=== PATIENT | male | born 1955 | race African-American/Black ===

== ENCOUNTER 2025-01-18 13:48 | Inpatient (IN) ==
[~2025-01-18 13:48] MED LIST: SODIUM BICARB 8.4% INJ 50 MEQ/50 ML SYR IV ONE; SODIUM CHLORIDE 0.9% 10ML FLUSH IV ONE
--- NOTE | 2025-01-18 14:17 | XRay Report ---
XR chest 1V portable CLINICAL HISTORY: post arrest COMPARISON STUDY: None FINDINGS: Endotracheal tube tip is between the thoracic inlet and the astrid. There is cardiomegaly w ithout pulmonary vascular congestion. No effusion, consolidation, or pneumothorax seen. IMPRESSION: Endotracheal tube as described with well-aerated lungs. ACT 112: Negative or not required by law. Electronically signed by: Pedro Alston M.D. 01/18/2025 2:15 PM
[2025-01-18] MEDS: OPTIRAY 320 125ml IV ONE (14:18)
[2025-01-18 14:22] LABS: Base Excess VBG -7.7 mEq/L; HCO3 VBG 24 mmol/L; Oxygen Saturation VBG 70.9 %; PCO2 VBG 86 mmHg (38-50); PO2 VBG 50 mmHg; pH VBG 7.06 (7.36-7.41)
[2025-01-18] MEDS ORDERED: STAT IV Infusion **Titration per Protocol STA ×4 (14:24→16:49)
--- NOTE | 2025-01-18 14:29 | Emergency Department Note ---
Impression & Plan Cardiac arrest, Acute hyperkalemia, Acute hypotension ED Provider Note HISTORY OF PRESENT ILLNESS: Patient is a 69-year-old male presenting after postcardiac arrest. EMS provides history, as patient is intubated. He reportedly was at a truck stop on [facility] when he had a witnessed fall to the ground. He had agonal breathing and CPR was started by bystanders. EMS reports that CPR was ongoing for about 6 minutes and when they arrived he had a pulse. He did have a gag reflex and they gave him 100 mcg of IV fentanyl and 5 mg IV Versed for sedation for intubation. They gave him a total of "140 mcg epinephrine," 1 amp of bicarb and 1 g of IV calcium prehospital. They report the patient has a "extensive cardiac history." On arrival to the emergency department, the patient has a palpable bradycardic pulse. He is intubated. He was initiated on a Levophed drip prehospital for his hypotension with EMS. Patient's presents later and supplies further history. Reports that the patient has been feeling very short of breath all week. Reports that the patient uses oxygen as needed and wears anywhere from 4 to 6 L at a time. He reportedly has been wearing his supplemental oxygen more frequently over the last week. They are currently on a road trip for vacation. Patient is on Entresto. No anticoagulation. reports the patient seemed more short of breath today. She states that he went to go to the bathroom at a rest stop and then had collapsed. ROS: as above PHYSICAL EXAM: Constitutional: Patient appears in no acute distress. HENT: Head: Normocephalic. Eyes: Pinpoint pupils. Mouth/Throat: Mucous membranes moist. Neck: Trachea midline. Neck supple. Cardiovascular: RRR, No murmurs, rubs or gallops. Intact distal pulses. Pulmonary/Chest: Patient intubated. Breath sounds only audible on right lung field auscultation. Abdominal: Abdomen soft, no tenderness, rebound or guarding. Musculoskeletal: No edema, tenderness or deformity noted. Skin: Warm and dry. No rash, erythema, pallor or cyanosis Neurological: Patient intubated. MDM: - Vitals signs showed hypotension. - History is obtained via EMS, given patient's postcardiac arrest status and intubation. - On arrival to the emergency department, patient is hypotensive. Bedside vcbiq-oy-ndle echocardiogram performed by ianelf showed trace amount of pericardial fluid. Patient does have what looks like good squeeze on bedside echo. Also did a rrygv-ik-kdzy FAST exam performed by myself, given the patient's hypotension. No obvious blood in his abdomen. He was started on an epinephrine drip and this had to be titrated up to 0.5 mcg/min. Blood pressure did improve and he was slowly titrated down to 0.2 mcg/min. Patient did start to arouse and reach for his ET tube, and he was given 50 mcg of IV fentanyl and started on a fentanyl drip. Jxnoy-[id number] BMP shows a potassium greater than 9. Patient was given 2 amps of bicarb and started on bicarb drip. VBG does show profound acidosis with a pH of 7.06. - EKG image reviewed by myself that was obtained at 1354 showed normal sinus rhythm. Rate 58 bpm. However, noted to have significantly wide QRS and a right bundle branch block. - Patient was given 2 amps of bicarb on his arrival to the emergency department. A bicarb drip was ordered. However, took a while for the bicarb drip to come up from pharmacy, so an additional 2 A of bicarb were ordered after evugi-gw-qzof BMP showed a potassium greater than 9. Patient had breath sounds only audible on the right side so his ET tube was retracted 2 cm. Chest x-ray shows appropriate ET tube placement per my interpretation. - Patient did start to have purposeful movements and was given 50 mcg of fentanyl and started on IV fentanyl drip for sedation. He was taken over for CT scan. CT head without contrast negative for any acute intracranial pathology. CTA of the chest was negative for any evidence of dissection. He has noted to have some rib fractures, likely secondary to his CPR. - Discussed case with ICU attending, Dr. Smith, at 14:41. He expressed concern about the patient's potassium and potential need for emergent dialysis. However, after a total of 4 amps of bicarb and initiation of a bicarb drip, a repeat [id number] BMP shows a potassium down to 5.3. - Repeat EKG image obtained at 1509 shows a persistent wide QRS. Rate 55 bpm. Noted to have a right bundle branch block. - Patient was difficult to sedate and he started to attempt to reach for his ET tube and was moving all extremities. He tried to sit up out of bed. He was given multiple boluses of IV fentanyl, given an IV Versed bolus and started on IV Versed drip for further sedation. Patient CMP showed a calcium of 7.9 and 1 g of IV calcium was pushed in the emergency department for further electrolyte replacement. - Discussed case with piano case and bench assembler about patient's case and need for admission. - [facility], Dr. Monsivais, consult for admission. - Patient mated to [facility] service for further evaluation management. I have personally spent 97 minutes of critical care time in the direct management of this patient. This includes bedside care, interpretation of diagnostic studies, and testing, discussion with consultants, patient, and family members, and other required patient management activities. This 97 minutes is in excess of all separately billable procedures. ASSESSMENT AND PLAN: Diagnosis: Cardiac arrest; hyperkalemia; hypotension Plan: admit Past Med/Surg History Problem List (Updated 01/18/25 @ 15:56 by Britt Liang MD) Acute hypotension (Acute) Acute hyperkalemia (Acute) Cardiac arrest (Acute) Social History Smoking Status: Unknown if ever smoked Preferred Language: Polish Feels Safe at Home: Yes Home Meds Home Medications Medication Instructions Recorded Confirmed atorvastatin 40 mg tablet 40 mg PO DAILY 01/18/25 01/18/25 carvedilol 25 mg tablet 25 mg PO BID 01/18/25 01/18/25 dapagliflozin propanediol 10 mg 10 mg PO DAILY 01/18/25 01/18/25 tablet (Farxiga) fluticasone fur. 200 mcg-umeclid 1 inh inhalation DIRECTED 01/18/25 01/18/25 62.5 mcg-vilant 25 mcg inhalat.powder (Trelegy Ellipta) metformin 500 mg tablet 500 mg PO UD 01/18/25 01/18/25 montelukast 10 mg tablet 10 mg PO DAILY 01/18/25 01/18/25 sacubitril 49 mg-valsartan 51 mg 1 tab PO BID 01/18/25 01/18/25 tablet (Entresto) tadalafil 20 mg tablet 20 mg PO DIRECTED PRN Other 01/18/25 01/18/25 Results & Data (ED) Vital Signs Vital Signs - 24 hr 01/18/25 13:26 01/18/25 13:35 01/18/25 13:35 Pulse Rate 67 Respiratory Rate 18 Respiratory Effort / Characteristics Non-Labored Blood Pressure 145/83 H Blood Pressure [Left Arm] Blood Pressure Mean 103 Blood Pressure Mean [Left Arm] Pulse Oximetry 100 Oxygen Delivery Method Mechanical Vent Room Air Fraction of Inspired Oxygen Sepsis Recent Fever Within 48 Hours No Sepsis New/Unexplained Change in Mental Status N/A Sepsis Action Taken by Nursing No Action Required 01/18/25 13:35 01/18/25 13:56 01/18/25 14:00 Pulse Rate 63 57 L Respiratory Rate 16 Respiratory Effort / Characteristics Blood Pressure Blood Pressure [Left Arm] 202/120 H Blood Pressure Mean Blood Pressure Mean [Left Arm] 147 Pulse Oximetry 100 Oxygen Delivery Method Fraction of Inspired Oxygen 100 Sepsis Recent Fever Within 48 Hours Sepsis New/Unexplained Change in Mental Status Sepsis Action Taken by Nursing 01/18/25 14:17 Pulse Rate Respiratory Rate Respiratory Effort / Characteristics Blood Pressure Blood Pressure [Left Arm] Blood Pressure Mean Blood Pressure Mean [Left Arm] Pulse Oximetry 100 Oxygen Delivery Method Mechanical Vent Fraction of Inspired Oxygen Sepsis Recent Fever Within 48 Hours Sepsis New/Unexplained Change in Mental Status Sepsis Action Taken by Nursing Laboratory Data 01/18/25 14:08 01/18/25 14:08 Lab Results 01/18/25 01/18/25 Range/Units 14:08 15:36 WBC 4.56 L (4.8-10.8) K/ul RBC 4.83 (4.70-6.10) M/uL Hgb 14.9 (14.0-18.0) g/dl POC Hgb 15.6 (14.0-18.0) g/dl Hct 51.5 (42.0-52.0) % POC Hct 46 (42-52) % MCV 106.6 H (80.0-100.0) fL MCH 30.8 (25.0-34.0) pg MCHC 28.9 L (32.0-36.0) g/dL RDW Std Deviation 54.2 H (36.4-46.3) fL RDW Coeff of Denilson 13.7 (11.5-14.5) % Plt Count 163 (130-400) K/uL MPV 11.9 (9.4-12.4) fL Immature Gran % (Auto) 1.1 % Neut % (Auto) 51.8 % Lymph % (Auto) 36.8 % Free[place] % (Auto) 9.2 % Eos % (Auto) 0.7 % Baso % (Auto) 0.4 % Neut # (Auto) 2.36 (1.40-6.50) K/uL Lymph # (Auto) 1.68 (1.20-3.40) K/uL Freeborn # (Auto) 0.42 (0.11-0.59) K/uL Eos # (Auto) 0.03 (0.00-0.50) K/uL Baso # (Auto) 0.02 (0.00-0.20) K/uL Immature Gran # (Auto) 0.05 (0.01-0.20) K/uL Polychromasia 1+ Echinocytes 2+ PT 11.9 (9.0-12.0) Seconds INR 1.1 (0.9-1.1) VBG pH 7.06 L (7.36-7.41) VBG pCO2 86 H (38-50) mmHg VBG pO2 50 mmHg VBG HCO3 24 mmol/L VBG O2 Saturation 70.9 % VBG Base Excess -7.7 mEq/L POC Sodium 146 H (135-144) mmol/L Sodium 143 (136-145) mmol/L POC Potassium 5.3 H (3.3-5.0) mmol/L Potassium TNP POC Chloride 105 (101-112) mmol/L Chloride 115 H (98-107) mmol/L Carbon Dioxide 25 (21-32) mmol/L POC Total CO2 32 H (24-31) mmol/L Anion Gap 3 (3-11) POC Anion Gap 15.0 L (16-25) mmol/L POC BUN 33 H (7-18) mg/dl BUN 31 H (6-23) mg/dl Creatinine 1.40 (0.6-1.4) mg/dl POC Creatinine 1.4 H (0.6-1.3) mg/dl Est Cr Clr Drug Dosing 65.9 ml/min eGFR 54.07 BUN/Creatinine Ratio 22.1 H (10-20) Glucose 202 H (70-99(Fasting)) mg/dl POC Glucose (other) 211 H (70-99) mg/dl Calcium 7.2 L (8.6-10.3) mg/dl POC Ioniz Calcium Otoniel 1.16 (1.12-1.32) mmol/l Magnesium 1.7 (1.7-2.4) mg/dl Total Bilirubin 0.5 (0.2-1.0) mg/dl AST TNP ALT 38 (7-52) U/L Alkaline Phosphatase 52 (34-104) U/L Troponin I High Sens 22.7 H (0-20) pg/ml Total Protein 4.8 L (6.0-8.3) gm/dl Albumin 2.6 L (3.4-5.0) gm/dl Globulin 2.2 L (2.5-4.0) gm/dl Albumin/Globulin Ratio 1.2 (0.9-2) Lipase 50 (11-82) U/L Administered Medications Fentanyl Citrate (Fentanyl Bolus From Bag) 50 mcg IV Q60M PRN PRN Reason: Pain or Agitation Stop: 02/01/25 14:23 Last Admin: 01/18/25 14:39 Dose: 50 mcg Documented By: MATTHEW Co-signed By: MIGUELINA Sodium Bicarbonate 150 meq/ (Sterile Water) 1,150 mls @ 250 mls/hr IV .Q4H36M ANA Stop: 02/17/25 14:14 Last Admin: 01/18/25 15:11 Dose: 250 mls/hr Documented By: MATTHEW Fentanyl Citrate (Fentanyl Citrate) 2,500 mcg in 250 mls @ 2.5 mls/hr IV .Q96H [facility]; Protocol Stop: 02/01/25 14:29 Last Admin: 01/18/25 14:35 Dose: 25 mcg/hr, 2.5 mls/hr Documented By: MATTHEW Co-signed By: MIGUELINA Epinephrine HCl () 4 mg in 254 mls @ 46.025 mls/hr IV .Q5H32M ANA; Protocol Stop: 02/17/25 14:44 Last Admin: 01/18/25 15:13 Dose: 0.2 mcg/kg/min, 92.1 mls/hr Documented By: MATTHEW Co-signed By: YARIEL Midazolam HCl (Versed) 125 mg in 250 mls @ 2 mls/hr IV .Q96H ANA; Protocol Stop: 02/17/25 14:59 Last Admin: 01/18/25 15:25 Dose: 1 mg/hr, 2 mls/hr Documented By: MATTHEW Co-signed By: YARIEL Discontinued Medications Calcium Gluconate (Calcium Gluconate 1000 Mg/60 Ml Nss) Confirm Administered Dose 1,000 mg IV .STK-MED ONE Stop: 01/18/25 15:05 Last Admin: 01/18/25 15:25 Dose: 1,000 mg Documented By: MATTHEW Fentanyl Citrate (Fentanyl Citrate Pf 100 Mcg/2 Ml Vial) Confirm Administered Dose 100 mcg .ROUTE .STK-MED ONE Stop: 01/18/25 14:24 Last Increment: 01/18/25 14:34 Dose: 50 mcg Documented By: MATTHEW Ioversol (Optiray 320 125ml) 119 ml IV ONCE ONE Stop: 01/18/25 14:18 Last Admin: 01/18/25 14:18 Dose: 119 ml Documented By: LOCO Midazolam HCl (Midazolam Hcl 1 Mg/Ml 2ml Vial) Confirm Administered Dose 2 mg .ROUTE .STK-MED ONE Stop: 01/18/25 14:52 Last Admin: 01/18/25 15:24 Dose: 2 mg Documented By: MATTHEW Midazolam HCl (Midazolam Hcl 1 Mg/Ml 2ml Vial) Confirm Administered Dose 2 mg .ROUTE .STK-MED ONE Stop: 01/18/25 14:55 Last Admin: 01/18/25 15:24 Dose: 2 mg Documented By: MATTHEW Imaging Data Radiologist's Impression: Chest CTA 01/18/25 14:03 CT ANGIOGRAM OF THE CHEST COMBO CLINICAL HISTORY: Hypotension. Post cardiac arrest. COMPARISON STUDY: Chest radiograph performed earlier today. TECHNIQUE: Before and following the IV administration of 119 cc of Optiray 320, CT angiogram of the chest was performed from the thoracic inlet to the upper abdomen utilizing the dissection protocol. Images are reviewed in the axial, sagittal, and coronal planes. 3-D MIPS images are created and assessed. IV contrast was administered without complication. A dose lowering technique was utilized adhering to the principles of ALARA. CT DOSE: 2782.13 mGy.cm FINDINGS: The endotracheal tube is well-positioned. The heart is moderately enlarged with preferential dilatation of the right heart chambers. Note is made of multiple locules of gas within the nondependent aspect of the right atrium and right ventricle. Additional sites of venous gas are present. Lungs are likely related to IV insertion. There is no thoracic aortic dissection or intramural hematoma. No pulmonary emboli are identified. A small pericardial effusion. Small right and trace left pleural effusions are present. Bilateral lower lobe subpleural opacities, right greater than left. There is no pneumothorax. Severe emphysema is present. A 1.2 cm left upper lobe nodule on image 99 of 241 is noted. There are acute nondisplaced fractures of the anterior right second, fourth and fifth ribs. No thoracic spine fractures are present. Body wall edema is present. A small amount of upper abdominal ascites is noted. IMPRESSION: 1. No thoracic aortic dissection. No pulmonary emboli identified. 2. Moderate cardiomegaly. Small pericardial effusion. 3. Well-positioned endotracheal tube. 4. Acute nondisplaced fractures of the anterior right second, fourth and fifth ribs. No pneumothorax. 5. Small right and trace left pleural effusions. Associated subpleural opacities could represent atelectasis or aspiration pneumonitis. 6. Severe emphysema. 7. 1.2 cm left upper lobe nodule. This is indeterminate and is worrisome for neoplasm. A mucoid impacted bronchus could appear similar. A chest CT in 2 months is recommended. 8. Locules of gas within the right heart chambers and venous gas likely related to IV insertion. 9. Anasarca. Small amount of upper abdominal ascites. ACT 112: Negative or not required by law. Electronically signed by: Dilshad Rawls M.D. 01/18/2025 2:51 PM Chest X-Ray 01/18/25 14:03 XR chest 1V portable CLINICAL HISTORY: post arrest COMPARISON STUDY: None FINDINGS: Endotracheal tube tip is between the thoracic inlet and the astrid. There is cardiomegaly without pulmonary vascular congestion. No effusion, consolidation, or pneumothorax seen. IMPRESSION: Endotracheal tube as described with well-aerated lungs. ACT 112: Negative or not required by law. Electronically signed by: Pedro Alston M.D. 01/18/2025 2:[address] 01/18/25 14:15 CT head/brain wo con CLINICAL HISTORY: cardiac arrest. TECHNIQUE: Multiple axial CT images of the head were obtained without contrast. A dose lowering technique was utilized adhering to the principles of ALARA. COMPARISON: None FINDINGS: No intracranial hemorrhage seen. No mass effect, midline shift, or hydrocephalus. There is mild to moderate patchy periventricular hypodensity which likely represents chronic small vessel ischemic changes. There is mucosal thickening in the maxillary sinuses. No mastoid effusion. No skull fracture seen. IMPRESSION: No acute findings. ACT 112: Negative or not required by law. The above report was generated using voice recognition software. It may contain grammatical, syntax or spelling errors. Electronically signed by: Pedro Alston M.D. 01/18/2025 2:32 PM Chest X-Ray 01/18/25 15:29 XR chest 1V portable CLINICAL HISTORY: line placement COMPARISON STUDY: Earlier today FINDINGS: Endotracheal tube tip is between the thoracic inlet and the astrid, 5 cm above the astrid. There is an interval right central catheter with the tip in the SVC. Stable mild cardiomegaly without pulmonary vascular congestion. No effusion, consolidation, or pneumothorax. IMPRESSION: Well-positioned endotracheal tube with well-aerated lungs. ACT 112: Negative or not required by law. Electronically signed by: Pedro Alston M.D. 01/18/2025 3:47 PM Discharge Plan Visit Data Chief Complaint: Cardiac Arrest/CPR Stated Complaint: POST ARREST ED Provider: Britt Liang Discharge Problem: Cardiac arrest, Acute hyperkalemia, Acute hypotension Condition: Critical Forms Stand Alone Forms: My [facility] [employer] Prescriptions Prescriptions: No Action atorvastatin 40 mg tablet 40 mg PO DAILY metformin 500 mg tablet 500 mg PO UD Rx Instructions: 1000mg po qam and 500mg po pm carvedilol 25 mg tablet 25 mg PO BID montelukast 10 mg tablet 10 mg PO DAILY tadalafil 20 mg tablet 20 mg PO DIRECTED PRN (Reason: Other) dapagliflozin propanediol [Farxiga] 10 mg tablet 10 mg PO DAILY Entresto 49-51 mg tablet 1 tab PO BID Trelegy Ellipta 200-62.5-25 mcg blister with device 1 inh INHALATION DIRECTED Referrals Referrals: PCP,NO [Physician] -
--- NOTE | 2025-01-18 14:34 | CT Scan Report ---
CT head/brain wo con CLINICAL HISTORY: cardiac arrest. TECHNIQUE: Multiple axial CT images of the head were obtained without contrast. A dose lowering tech nique was utilized adhering to the principles of ALARA. COMPARISON: None FINDINGS: No intracranial hemorrhage seen. No mass effect, midline shift, or hydrocephalus. There is mild to moderate patchy periventricular hypodensity which likely represents chronic small vessel isch emic changes. There is mucosal thickening in the maxillary sinuses. No mastoid effusion. No skull fra cture seen. IMPRESSION: No acute findings. ACT 112: Negative or not required by law. The above report was generated using voice recognition software. It may contain grammatical, syntax o r spelling errors. Electronically signed by: Pedro Alston M.D. 01/18/2025 2:32 PM
[2025-01-18] MEDS: fentaNYL citrate 2,500 MCG/250 ML BAG IV SCH (14:35)
[2025-01-18 14:50] LABS: Alanine Aminotransferase 38 U/L (7-52); Alkaline Phosphatase 52 U/L (34-104); Anion Gap 3 (3-11); Blood Urea Nitrogen 31 mg/dl (6-23); Calcium 7.2 mg/dl (8.6-10.3); Carbon Dioxide 25 mmol/L (21-32); Chloride 115 mmol/L (98-107); Creatinine Clr Calc Pharmacy 65.9 ml/min; Glucose 202 mg/dl (70-99(Fasting)); Lipase 50 U/L (11-82); Magnesium 1.7 mg/dl (1.7-2.4); Sodium 143 mmol/L (136-145)
--- NOTE | 2025-01-18 14:53 | CT Scan Report ---
CT ANGIOGRAM OF THE CHEST COMBO CLINICAL HISTORY: Hypotension. Post cardiac arrest. COMPARISON STUDY: Chest radiograph performed earlier today. TECHNIQUE: Before and following the IV administration of 119 cc of Optiray 320, CT angiogram of the c hest was performed from the thoracic inlet to the upper abdomen utilizing the dissection protocol. Im ages are reviewed in the axial, sagittal, and coronal planes. 3-D MIPS images are created and assesse d. IV contrast was administered without complication. A dose lowering technique was utilized adherin g to the principles of ALARA. CT DOSE: 2782.13 mGy.cm FINDINGS: The endotracheal tube is well-positioned. The heart is moderately enlarged with preferentia l dilatation of the right heart chambers. Note is made of multiple locules of gas within the nondepen dent aspect of the right atrium and right ventricle. Additional sites of venous gas are present. Lung s are likely related to IV insertion. There is no thoracic aortic dissection or intramural hematoma. No pulmonary emboli are identified. A small pericardial effusion. Small right and trace left pleural effusions are present. Bilateral lower lobe subpleural opacities, right greater than left. There is n o pneumothorax. Severe emphysema is present. A 1.2 cm left upper lobe nodule on image 99 of 241 is no oskar. There are acute nondisplaced fractures of the anterior right second, fourth and fifth ribs. No t horacic spine fractures are present. Body wall edema is present. A small amount of upper abdominal as cites is noted. IMPRESSION: 1. No thoracic aortic dissection. No pulmonary emboli identified. 2. Moderate cardiomegaly. Small pericardial effusion. 3. Well-positioned endotracheal tube. 4. Acute nondisplaced fractures of the anterior right second, fourth and fifth ribs. No pneumothorax. 5. Small right and trace left pleural effusions. Associated subpleural opacities could represent atel ectasis or aspiration pneumonitis. 6. Severe emphysema. 7. 1.2 cm left upper lobe nodule. This is indeterminate and is worrisome for neoplasm. A mucoid impac oskar bronchus could appear similar. A chest CT in 2 months is recommended. 8. Locules of gas within the right heart chambers and venous gas likely related to IV insertion. 9. Anasarca. Small amount of upper abdominal ascites. ACT 112: Negative or not required by law. Electronically signed by: Dilshad Rawls M.D. 01/18/2025 2:51 PM
[2025-01-18] MEDS ORDERED: MIDAZOLAM BOLUS FROM BAG IV PRN (14:55)
[2025-01-18 15:00] LABS: Albumin Globulin Ratio 1.2 (0.9-2); Bilirubin,Total 0.5 mg/dl (0.2-1.0); Globulin 2.2 gm/dl (2.5-4.0); Total Protein 4.8 gm/dl (6.0-8.3)
--- NOTE | 2025-01-18 15:02 | History & Physical Report ---
Date of Service January 18, 2025 Assessment & Plan (1) Cardiac arrest: (2) Heart failure with reduced ejection fraction: Plan This is a 69-year-old male who presented for cardiac arrest on 01/18. #Cardiac arrest | rib fractures ROSC obtained in the field after 6 minutes of CPR Etiology for cardiac arrest is still being worked up, however suspect cardiac arrhythmia (V-fib) as leading diagnosis Per , they had previously discussed with the manager home improvement about having a defibrillator placed, but this was deferred when patient was started on Entresto Head CT without acute findings Chest CTA without thoracic aortic dissection or pulmonary emboli; severe em physema + several nondisplaced acute rib fractures Troponin mildly elevated at 22.7 on arrival, repeat pending No leukocytosis; afebrile Epinephrine drip Versed drip Bicarb drip Currently on mechanical ventilation Hold all p.o. medications while intubated #Metabolic acidosis VB.06/86/50/24 on arrival ABG pending #Hyperkalemia [id number]-[id number] potassium reported to be 9.0 Repeat 5.3 at bedside #HFrEF Reported to have HFrEF, per Currently on Entresto Stat echocardiogram ordered, pending #Former tobacco cigarette smoker | severe emphysema Seen on chest imaging Patient is normally on supplemental oxygen PRN at baseline Continuous pulse oximetry Disposition: Admit to ICU VTE PPx: Will defer to ICU Records requested from patient's PCP (Dr. Zhang Magaña) with [facility] in [place], [place] Records requested from patient's manager home improvement (Dr. Carolina Wills) with [facility] in [place], [place] History of Present Illness Chief Complaint: Cardiac arrest/CPR Primary Care Provider: ZHANG LOUIS Mr. Kay is a 69-year-old male with PMH of T2DM, CHF, HLD, HTN, tobacco use, and severe emphysema (on supplemental oxygen as needed). He presented on 01/18 after sustaining a cardiac arrest in the field. Patient was at a gas station, and suddenly collapsed. He received approximately 6 minutes of CPR in the [facility], and ROSC was obtained. En route, he received 2 amps of bicarb, and was started on a norepinephrine drip. Per ED, his xwsna-fu-fhus potassium on arrival was 9. Patient was traveling home to [place], where he lives. Unable to obtain history from patient at this time. ED course: Unable to obtain ROS at this time. Spoke to patient's (Kassi) who provide history. She reports that she, her , and their children were on a cruise off the [place]. They were driving back home to [place], and they stopped at a gas station, where the patient went into cardiac arrest. reports that, over the past week on the cruise, patient had worsening CONN. He could "barely take 10 steps" without needing to catch his breath. While he was mainly with exertion, he also had e pisodes of SOB at rest. Patient has supplemental oxygen at baseline (as needed) for his history of emphysema and smoking. He is a former tobacco cigarette smoker, but quit 15 years ago. He does have a CPAP at home, but is not compliant. denies any prior history of CA, cardiac arrhythmias, atrial fibrillation, or CVAs. No recent trauma to the chest. No history of kidney issues or high potassium. Patient does follow with a manager home improvement in [place], [place] (where he is from). Records requested from Dr. Carolina Wills. Home Medications Medication Instructions Recorded Confirmed Type atorvastatin 40 mg tablet 40 mg PO DAILY 01/18/25 01/18/25 History carvedilol 25 mg tablet 25 mg PO BID 01/18/25 01/18/25 History dapagliflozin propanediol 10 mg 10 mg PO DAILY 01/18/25 01/18/25 History tablet (Farxiga) fluticasone fur. 200 mcg-umeclid 1 inh inhalation DIRECTED 01/18/25 01/18/25 History 62.5 mcg-vilant 25 mcg inhalat.powder (Trelegy Ellipta) metformin 500 mg tablet 500 mg PO UD 01/18/25 01/18/25 History montelukast 10 mg tablet 10 mg PO DAILY 01/18/25 01/18/25 History sacubitril 49 mg-valsartan 51 mg 1 tab PO BID 01/18/25 01/18/25 History tablet (Entresto) tadalafil 20 mg tablet 20 mg PO DIRECTED PRN Other 01/18/25 01/18/25 History Past Med/Surg History Problem List (Updated 01/18/25 @ 16:58 by Sanjuana Smith MD, [facility]) COPD with emphysema Diabetes mellitus Pulmonary hypertension Cor pulmonale, acute CORY (obstructive sleep apnea) Dyslipidemia Macrocytic anemia LALO (acute kidney injury) Rib fracture Ventilator dependent Heart failure with reduced ejection fraction Acute hypotension (Acute) Acute hyperkalemia (Acute) Cardiac arrest (Acute) Social History Smoking Status: Former smoker Smoking End Date: 2009; Hx Alcohol Use: No Hx Substance Use: No Preferred Language: French Communication Ability: Effective Biometric Screener Required: No Beliefs That Will Affect Care: None Current Living Situation: Spouse and Family Other Information That Helps Us Care for You: No Feels Safe at Home: Yes Assistive Devices: Oxygen - at Night Assistive Devices Comment: O2 4-5L PRN Review of Systems Review of Systems: See HPI above Physical Exam Physical Exam: General: Patient is unresponsive; on mechanical ventilation HEENT: normocephalic, atraumatic; no scleral icterus; PERRLA; unable to assess vision and hearing Neck: supple; trachea midline Skin: warm, dry without signs of tenting; no cyanosis; no rashes, bruising, lesions, or erythema noted CV: chest wall NTP; RRR, mildly bradycardic around 57 bpm; pulses intact and symmetric at radial, DP, and PT Lungs: no acute respiratory distress; symmetrical chest wall expansion; clear breath sounds across all lung lassiter w/o adventitious sounds; no wheezing ABD: Soft, NTP; BS present; no rebound/guarding; no distention MSK: no tics or fasciculations; +2 pitting edema extending from the lower extremity bilaterally up to the knees, nonerythematous Neuro: Unable to assess speech/sensation Results & Data Results & Data Vital Signs (Past 12 Hours) Vital Signs Pulse Resp BP BP Pulse Ox O2 Del Method FiO2 01/18/25 14:17 100 Mechanical Vent 01/18/25 14:00 57 L 16 100 100 01/18/25 13:56 63 01/18/25 13:35 202/120 H 01/18/25 13:35 Room Air 01/18/25 13:26 67 18 145/83 H 100 Mechanical Vent Laboratory Results Abnormal lab results 01/18/25 01/18/25 01/18/25 Range/Units 14:08 15:33 15:36 WBC 4.56 L (4.8-10.8) K/ul MCV 106.6 H (80.0-100.0) fL MCHC 28.9 L (32.0-36.0) g/dL RDW Std Deviation 54.2 H (36.4-46.3) fL POC pH 7.34 L (7.35-7.45) POC pCO2 65 H (35-46) mmHg POC pO2 103 H (80-95) mmHg POC HCO3 35 H (19-24) ludivina/L POC Total CO2 37 H 32 H (24-31) mmol/L POC Base Excess 10.0 H (-9-1.8) ludivina/L POC ABG O2 Sat 97.0 H (90-95) % VBG pH 7.06 L (7.36-7.41) VBG pCO2 86 H (38-50) mmHg POC Sodium 146 H 146 H (135-144) mmol/L POC Potassium 5.3 H 5.3 H (3.3-5.0) mmol/L Chloride 115 H (98-107) mmol/L POC Anion Gap 15.0 L (16-25) mmol/L POC BUN 33 H (7-18) mg/dl BUN 31 H (6-23) mg/dl POC Creatinine 1.4 H (0.6-1.3) mg/dl BUN/Creatinine Ratio 22.1 H (10-20) Glucose 202 H (70-99(Fasting)) mg/dl POC Glucose (other) 211 H (70-99) mg/dl Calcium 7.2 L (8.6-10.3) mg/dl Troponin I High Sens 22.7 H (0-20) pg/ml Total Protein 4.8 L (6.0-8.3) gm/dl Albumin 2.6 L (3.4-5.0) gm/dl Globulin 2.2 L (2.5-4.0) gm/dl // Range/Units 15:38 WBC (4.8-10.8) K/ul MCV (80.0-100.0) fL MCHC (32.0-36.0) g/dL RDW Std Deviation (36.4-46.3) fL POC pH (7.35-7.45) POC pCO2 (35-46) mmHg POC pO2 (80-95) mmHg POC HCO3 (19-24) ludivina/L POC Total CO2 33 H (24-31) mmol/L POC Base Excess (-9-1.8) ludivina/L POC ABG O2 Sat (90-95) % VBG pH (7.36-7.41) VBG pCO2 (38-50) mmHg POC Sodium 146 H (135-144) mmol/L POC Potassium 5.3 H (3.3-5.0) mmol/L Chloride (98-107) mmol/L POC Anion Gap 14.0 L (16-25) mmol/L POC BUN 33 H (7-18) mg/dl BUN (6-23) mg/dl POC Creatinine 1.4 H (0.6-1.3) mg/dl BUN/Creatinine Ratio (10-20) Glucose (70-99(Fasting)) mg/dl POC Glucose (other) 207 H (70-99) mg/dl Calcium (8.6-10.3) mg/dl Troponin I High Sens (0-20) pg/ml Total Protein (6.0-8.3) gm/dl Albumin (3.4-5.0) gm/dl Globulin (2.5-4.0) gm/dl Diagnostic Findings Chest CTA 01/18/25 14:03 CT ANGIOGRAM OF THE CHEST COMBO CLINICAL HISTORY: Hypotension. Post cardiac arrest. COMPARISON STUDY: Chest radiograph performed earlier today. TECHNIQUE: Before and following the IV administration of 119 cc of Optiray 320, CT angiogram of the chest was performed from the thoracic inlet to the upper abdomen utilizing the dissection protocol. Images are reviewed in the axial, sagittal, and coronal planes. 3-D MIPS images are created and assessed. IV contrast was administered without complication. A dose lowering technique was utilized adhering to the principles of ALARA. CT DOSE: 2782.13 mGy.cm FINDINGS: The endotracheal tube is well-positioned. The heart is moderately enlarged with preferential dilatation of the right heart chambers. Note is made of multiple locules of gas within the nondependent aspect of the right atrium and right ventricle. Additional sites of venous gas are present. Lungs are likely related to IV insertion. There is no thoracic aortic dissection or intramural hematoma. No pulmonary emboli are identified. A small pericardial effusion. Small right and trace left pleural effusions are present. Bilateral lower lobe subpleural opacities, right greater than left. There is no pneumothorax. Severe emphysema is present. A 1.2 cm left upper lobe nodule on image 99 of 241 is noted. There are acute nondisplaced fractures of the anterior right second, fourth and fifth ribs. No thoracic spine fractures are present. Body wall edema is present. A small amount of upper abdominal ascites is noted. IMPRESSION: 1. No thoracic aortic dissection. No pulmonary emboli identified. 2. Moderate cardiomegaly. Small pericardial effusion. 3. Well-positioned endotracheal tube. 4. Acute nondisplaced fractures of the anterior right second, fourth and fifth ribs. No pneumothorax. 5. Small right and trace left pleural effusions. Associated subpleural opacities could represent atelectasis or aspiration pneumonitis. 6. Severe emphysema. 7. 1.2 cm left upper lobe nodule. This is indeterminate and is worrisome for neoplasm. A mucoid impacted bronchus could appear similar. A chest CT in 2 months is recommended. 8. Locules of gas within the right heart chambers and venous gas likely related to IV insertion. 9. Anasarca. Small amount of upper abdominal ascites. ACT 112: Negative or not required by law. Electronically signed by: Dilshad Rawls M.D. 01/18/2025 2:51 PM Chest X-Ray 01/18/25 14:03 XR chest 1V portable CLINICAL HISTORY: post arrest COMPARISON STUDY: None FINDINGS: Endotracheal tube tip is between the thoracic inlet and the astrid. There is cardiomegaly without pulmonary vascular congestion. No effusion, consolidation, or pneumothorax seen. IMPRESSION: Endotracheal tube as described with well-aerated lungs. ACT 112: Negative or not required by law. Electronically signed by: Pedro Alston M.D. 01/18/2025 2:[address] 01/18/25 14:15 CT head/brain wo con CLINICAL HISTORY: cardiac arrest. TECHNIQUE: Multiple axial CT images of the head were obtained without contrast. A dose lowering technique was utilized adhering to the principles of ALARA. COMPARISON: None FINDINGS: No intracranial hemorrhage seen. No mass effect, midline shift, or hydrocephalus. There is mild to moderate patchy periventricular hypodensity which likely represents chronic small vessel ischemic changes. There is mucosal thickening in the maxillary sinuses. No mastoid effusion. No skull fracture seen. IMPRESSION: No acute findings. ACT 112: Negative or not required by law. The above report was generated using voice recognition software. It may contain grammatical, syntax or spelling errors. Electronically signed by: Pedro Alston M.D. 01/18/2025 2:32 PM Chest X-Ray 01/18/25 15:29 XR chest 1V portable CLINICAL HISTORY: line placement COMPARISON STUDY: Earlier today FINDINGS: Endotracheal tube tip is between the thoracic inlet and the astrid, 5 cm above the astrid. There is an interval right central catheter with the tip in the SVC. Stable mild cardiomegaly without pulmonary vascular congestion. No effusion, consolidation, or pneumothorax. IMPRESSION: Well-positioned endotracheal tube with well-aerated lungs. ACT 112: Negative or not required by law. Electronically signed by: Pedro Alston M.D. 01/18/2025 3:47 PM ECG Additional Comments: ECG revealed sinus bradycardia with first-degree AV block at 58 bpm; QTc 431; RBBB; extended QRS duration No prior EKGs for comparison Code Status & VTE Plan Code Status Full code Per , the patient does not have an advanced directive or medical power of assistant attorney general in place. reports he has never had prior discussions with her regarding his wishes in the event of medical emergency. As medical proxy, expresses a desire for him to remain as a full code at this time. VTE Prophylaxis Plan VTE Prophylaxis will be ordered: Yes Supervising Physician Co-Signing Physician Notes I personally examined the patient and verified all hare points of history and exam, discussed case, and agree with decision making with Arcelia PRINCE cardiac arrest CPR in [facility] field, ROSC. making some purposeful movements vitals noted, intubated, sedated. no lateralizing signs. exam as above. labs and diagnostics noted cardiac arrest - ROSC, but on pressors, ventilator. most suspicious for ventricular arrythmia ( notes ICD had been discussed in the past). appreciate ICU management at this time otherwise as above PG Care Time/CCT Total # of Minutes Spent Total Time Spent with Patient: Total time spent is greater than 50% in coordination of care (as documented) at patient's floor/unit and/or counseling patient: Coding [place] [address] INT INP/OBS CARE 3/75MIN Patient Type Established Medical Decision Making High Complexity Diagnoses Cardiac arrest I46.9 Heart failure with reduced ejection fraction I50.20
[2025-01-18 15:07] LABS: Hematocrit (blood only) 51.5 % (42.0-52.0); Hemoglobin 14.9 g/dl (14.0-18.0); Mean Corpuscular Hemoglobin 30.8 pg (25.0-34.0); Mean Corpuscular Volume 106.6 fL (80.0-100.0); Platelet Count 163 K/uL (130-400); RDW Standard Deviation 54.2 fL (36.4-46.3); Red Blood Count 4.83 M/uL (4.70-6.10); White Blood Count 4.56 K/ul (4.8-10.8)
[2025-01-18] MEDS: SODIUM BICARBONATE 8.4% 150 MEQ in WATER, STERILE 1,000 ML IV SCH (15:11)
[2025-01-18] MEDS: EPINEPHrine/NSS 4 MG/254 ML BAG IV SCH (15:13)
[2025-01-18] MEDS: MIDAZOLAM HCL 1 MG/ML 2ML VIAL ONE ×2 (15:24)
[2025-01-18] MEDS: CALCIUM GLUCONATE 1000 MG/60 ML NSS IV ONE (15:25)
[2025-01-18] MEDS: MIDAZOLAM HCL 125 MG/250 ML BAG IV SCH (15:25)
[2025-01-18 15:26] LABS: INR 1.1 (0.9-1.1); Prothrombin Time 11.9 Seconds (9.0-12.0)
[2025-01-18 15:28] LABS: Immature Granulocytes # (auto) 0.05 K/uL (0.01-0.20); Immature Granulocytes % (auto) 1.1 %; Polychromasia 1+
--- NOTE | 2025-01-18 15:49 | XRay Report ---
XR chest 1V portable CLINICAL HISTORY: line placement COMPARISON STUDY: Earlier today FINDINGS: Endotracheal tube tip is between the thoracic inlet and the astrid, 5 cm above the astrid. There is an interval right central catheter with the tip in the SVC. Stable mild cardiomegaly without pulmonary vascular congestion. No effusion, consolidation, or pneumothorax. IMPRESSION: Well-positioned endotracheal tube with well-aerated lungs. ACT 112: Negative or not required by law. Electronically signed by: Pedro Alston M.D. 01/18/2025 3:47 PM
[2025-01-18 15:50] LABS: iSTAT Art Bld Gas Base Excess 10.0 meg/L (-9-1.8)
--- NOTE | 2025-01-18 15:58 | Emergency Department Note ---
ED Visit Note Given patient's peripheral vasopressor use through an IO and need for further laboratory testing, a R IJ central line was placed by myself. Please see procedure note below. Central Venous Catheter Indication: Vasopressor use; recurrent blood draws Catheter type: Triple-lumen central venous catheter Location: Right internal jugular vein Verbal consent was not obtained, secondary to patient's critical status and need for further access. At this time, the risks of the procedure are less than the risks of NOT performing the procedure. The patient was placed in the supine position and the skin was prepped in the standard fashion with chlorhexidine and full sterile drapes applied. The proper landmarks were identified with ultrasound and the needle was inserted through the skin in the standard fashion. The needle was carefully advanced into blood vessel lumen under ultrasound guidance. The guidewire was placed uneventfully. The vessel is dilated and the catheter was placed. It was sutured into position. There was good blood return from all ports. The patient tolerated the procedure well and there were no complications. Post procedure x-ray was normal and negative for pneumothorax. .
--- NOTE | 2025-01-18 16:14 | Critical Care Consultation ---
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 Got resuscitated in the ED, intubated and sent to the ICU for further care Past medical history: Dyslipidemia, hypertension, emphysema on home O2, diabetes type 2 Neuro - [facility] ICU: Unable to assess Propofol and fentanyl for sedation Keep patient RASS -1 Cardiac - 2D echo 01/18/2025: EF 60-65%, RV dilated, RV function cannot be assessed, flattened septum --S/p cardiac arrest 2 to 6 minutes of CPR, epi, calcium as well as 2 A of bicarb Was started on bicarb drip Try to keep the patient euthermic --History of systolic CHF Last cardiac cath was approximately 8 years ago, no stent placed at that time as per the family Latest EF 60-65% On Entresto as well as Coreg 25 mg twice daily --Pulmonary hypertension with cor pulmonale Etiology is likely type II as well as CORY noncompliant with CPAP Continue with diuretics Respiratory - CTA chest 01/18/2025 personally reviewed: Centrilobular and paraseptal emphysema appreciated bilaterally Small right-sided pleural effusion, minimal left-sided pleural effusion Cardiomegaly No significant mediastinal lymphadenopathy -- VDRF Secondary to cardiac arrest Continue with ventilatory support Keep RASS -1 Daily sedation holidays and SBT's Chlorhexidine mouthwash --COPD with emphysema On Trelegy 200 at home Does not seem to be in exacerbation Nebulized bronchodilators while in the hospital --CORY Not compliant with CPAP GI - -- No acute issues RENAL/LYTES - -- LALO Follow-up urine lites Monitor BUN/creatinine Avoid nephrotoxic medications Strict ins and outs ENDO - -- Diabetes type 2 ICU hypoglycemia protocol HEME - -- Macrocytic anemia Monitor H&H ID - -- No clear signs of infection --Prophylaxis VTE: Heparin GI: Pantoprazole Lines: Right IJ, peripheral Diet: N.p.o. Plan: Given the history of COPD would recommend oxygen saturation to be kept around 90-92% Will gradually go down on the PEEP Patient does seem to have cor pulmonale, will start the patient on Lasix 40 mg twice daily DC bicarb drip For sedation start the patient on propofol and try to wean him from midazolam Doppler bilateral lower extremity Patient's was updated in person regarding the critical condition of patient. I have personally spent 64 minutes of critical care time in the direct management of this patient. This is a life/limb threatening event. This includes time spent evaluating patient, direct bedside care, chart review, placing orders, interpretation of diagnostic studies, discussion with consultants, patient, and family members, as well as other required patient management activities. This time is exclusive of all separately billable procedures, and teaching time and separate from and in addition to any other critical care service time. History of Present Illness History of Present Illness 69-year-old male was brought to the hospital postcardiac arrest. Got resuscitated in the ED, intubated and sent to the ICU for further care Past medical history: Dyslipidemia, hypertension, emphysema on home O2, diabetes type 2 History was obtained from previous chart as well as . Witnessed cardiac arrest, CPR was initiated by bystanders followed by BLS and then ACLS AED was applied which did not suggest shocking the patient. In the ED after ROSC patient had sinus rhythm with wide-complex frequent PVCs Patient is usually supposed to take diuretics on an as-needed basis but did not take any when he was on the cruise with the family As per the he was not feeling well for couple of days complaining of shortness of breath and fatigue. They were driving back to [place] At the time of examination in the ICU his systolic blood pressure was in the high 30s while being on epi Saturation was 99% with PEEP of 10 and 70% FiO2, I was able to gradually go down to 40% Peak pressures where 32. He was on bicarb drip as well as midazolam and fentanyl. Social history: [id number] smoking history, quit in 2009 Home Medications Medication Instructions Recorded Confirmed Type atorvastatin 40 mg tablet 40 mg PO DAILY 01/18/25 01/18/25 History carvedilol 25 mg tablet 25 mg PO BID 01/18/25 01/18/25 History dapagliflozin propanediol 10 mg 10 mg PO DAILY 01/18/25 01/18/25 History tablet (Farxiga) fluticasone fur. 200 mcg-umeclid 1 inh inhalation DIRECTED 01/18/25 01/18/25 History 62.5 mcg-vilant 25 mcg inhalat.powder (Trelegy Ellipta) metformin 500 mg tablet 500 mg PO UD 01/18/25 01/18/25 History montelukast 10 mg tablet 10 mg PO DAILY 01/18/25 01/18/25 History sacubitril 49 mg-valsartan 51 mg 1 tab PO BID 01/18/25 01/18/25 History tablet (Entresto) tadalafil 20 mg tablet 20 mg PO DIRECTED PRN Other 01/18/25 01/18/25 History Patient History Social History Smoking Status: Unknown if ever smoked Preferred Language: Khmer Feels Safe at Home: Yes Review of Systems 2 Review of Systems: Unobtainable due to endotracheal tube Physical Exam 2 Physical Exam: Constitutional: No acute distress HEENT: EOMI, sluggish response of bilateral pupils, arcus and Kristal bilaterally, cataracts appreciated bilaterally Respiratory system: Decreased air entry bilaterally, no wheeze, no rhonchi, positive crackles bilateral lower lobe CVS: S1-S2 positive, no murmurs or gallops Abdomen: Soft, nontender, nondistended, positive bowel sounds x4, obese Extremities: +2 pulses bilaterally radialis/ dorsalis pedis, no cyanosis, +2 pitting edema bilateral lower extremity Neuro: Sedated, RASS -1 Psych: Unable to assess G/U: Positive [place] Skin: no rashes, warm and dry Lymphatic: no cervical or axillary lymphadenopathy Results & Data Results & Data Vital Signs (Past 12 Hours) Vital Signs Temp Pulse Resp BP BP Pulse Ox O2 Del Method 01/18/25 15:52 118/67 01/18/25 15:51 34.7 C L 61 7 L 01/18/25 15:49 119/73 01/18/25 15:48 122/73 01/18/25 15:46 112/72 01/18/25 15:39 34.7 C L 61 3 L 90 01/18/25 15:38 134/79 01/18/25 15:38 134/79 01/18/25 15:34 182/100 H 01/18/25 15:33 55 L 0 L 100 01/18/25 15:32 138/73 01/18/25 15:32 138/73 01/18/25 15:30 57 L 22 100 01/18/25 15:29 141/87 H 01/18/25 15:27 58 L 7 L 100 01/18/25 15:25 150/106 H 01/18/25 15:25 150/106 H 01/18/25 15:24 58 L 8 L 100 01/18/25 15:23 188/101 H 01/18/25 15:23 188/101 H 01/18/25 15:16 190/127 H 01/18/25 15:13 172/93 H 01/18/25 15:13 172/93 H 01/18/25 15:12 59 L 9 L 100 01/18/25 15:11 194/97 H 01/18/25 15:09 169/93 H 01/18/25 14:58 133/71 01/18/25 14:57 52 L 4 L 100 01/18/25 14:56 122/73 01/18/25 14:55 121/72 01/18/25 14:54 55 L 4 L 100 01/18/25 14:54 112/66 01/18/25 14:53 108/71 01/18/25 14:51 56 L 11 L 94 01/18/25 14:51 102/71 01/18/25 14:51 102/71 01/18/25 14:46 119/71 01/18/25 14:40 106/68 01/18/25 14:39 55 L 0 L 100 01/18/25 14:39 106/65 01/18/25 14:35 92/62 L 01/18/25 14:33 56 L 6 L 99 01/18/25 14:32 83/55 L 01/18/25 14:30 96/58 L 01/18/25 14:30 57 L 0 L 100 01/18/25 14:29 102/63 01/18/25 14:17 100 Mechanical Vent 01/18/25 14:04 150/101 H 01/18/25 14:04 150/101 H 01/18/25 14:00 57 L 16 100 01/18/25 13:58 74/49 L 01/18/25 13:56 63 01/18/25 13:54 63/41 L 01/18/25 13:35 202/120 H 01/18/25 13:35 Room Air 01/18/25 13:26 67 18 145/83 H 100 Mechanical Vent FiO2 01/18/25 15:52 01/18/25 15:51 01/18/25 15:49 01/18/25 15:48 01/18/25 15:46 01/18/25 15:39 01/18/25 15:38 01/18/25 15:38 01/18/25 15:34 01/18/25 15:33 01/18/25 15:32 01/18/25 15:32 01/18/25 15:30 01/18/25 15:29 01/18/25 15:27 01/18/25 15:25 01/18/25 15:25 01/18/25 15:24 01/18/25 15:23 01/18/25 15:23 01/18/25 15:16 01/18/25 15:13 01/18/25 15:13 01/18/25 15:12 01/18/25 15:11 01/18/25 15:09 01/18/25 14:58 01/18/25 14:57 01/18/25 14:56 01/18/25 14:55 01/18/25 14:54 01/18/25 14:54 01/18/25 14:53 01/18/25 14:51 01/18/25 14:51 01/18/25 14:51 01/18/25 14:46 01/18/25 14:40 01/18/25 14:39 01/18/25 14:39 01/18/25 14:35 01/18/25 14:33 01/18/25 14:32 01/18/25 14:30 01/18/25 14:30 01/18/25 14:29 01/18/25 14:17 01/18/25 14:04 01/18/25 14:04 01/18/25 14:00 100 01/18/25 13:58 01/18/25 13:56 01/18/25 13:54 01/18/25 13:35 01/18/25 13:35 01/18/25 13:26 Laboratory Results 01/18/25 14:08 Coding Level of Care Code 55455 CRITICAL CARE 1ST 30-74M Diagnoses Cardiac arrest I46.9 Ventilator dependent Z99.11 Rib fracture S22.39XA LALO (acute kidney injury) N17.9 Macrocytic anemia D53.9 Dyslipidemia E78.5 CORY (obstructive sleep apnea) G47.33 Cor pulmonale, acute I26.09 Pulmonary hypertension I27.20 Diabetes mellitus E11.9 COPD with emphysema J43.9
--- NOTE | 2025-01-18 16:22 | XCELERA ---
[id number] [id number]
[2025-01-18 16:27] LABS: Potassium 5.5 mmol/L (3.5-5.1)
[2025-01-18] MEDS ORDERED: PROPOFOL BOLUS FROM BAG IV PRN (16:49)
[2025-01-18] MEDS: FUROSEMIDE 40 MG/4 ML VIAL IV SCH (17:45)
[2025-01-18] MEDS: MAGNESIUM SULFATE / D5W 1 GM/100 ML BAG IV SCH (17:46)
[2025-01-18] MEDS: PANTOprazole 40 MG/10 ML SYR IV SCH (18:11)
[2025-01-18 18:15] LABS: Appearance Urine Clear (Clear); Bacteria Urine Automated None Seen (None Seen); Epithelial Cell Urine Auto 0-2 /hpf (0-2); Glucose Urine UA 3+ (Negative); RBC Urine Automated >20 /hpf (0-2); WBC Urine Automated 0-5 /hpf (0-5)
[2025-01-18] MEDS: NOREPINEPHRINE/D5W 4 MG/250 ML IV ONE ×2 (18:19→18:43)
[2025-01-18] MEDS: ICU ELECTROLYTE REPLACEMENT PROTOCOL SCH (18:43)
[2025-01-18] MEDS: NOREPINEPHRINE/D5W 4 MG/250 ML PLCT IV SCH (18:43)
[2025-01-18] MEDS ORDERED: Nursing to Pharmacy Communication SCH (18:45)
--- NOTE | 2025-01-18 19:10 | Ultrasound Report ---
EXAM: US venous doppler LE CLINICAL HISTORY: R/o DVT. TECHNIQUE: Ultrasound examination of bilateral lower extremity veins was performed in real time and duplex. One or more of the following were performed- spectral analysis, resistive index, waveform analysis, and pulsed Doppler. COMPARISON: None. FINDINGS: Limited evaluation of the calf veins due to edema. Normal phasic, non-pulsatile, and spontaneous flow is noted in the bilateral common femoral, superficial femoral, popliteal, anterior tibial, posterior tibial, and peroneal veins. Visualized veins of both lower extremities demonstrate normal compressibility. No sonographic evidence of acute deep vein thrombosis (DVT) is detected in the visualized veins of both lower extremities. Compression and Augmentation: All evaluated veins compress fully with applied transducer pressure. Augmentation of venous flow is noted with distal compression. Additional Findings: Subcutaneous edema. IMPRESSION: No sonographic evidence of acute DVT was detected in the bilateral common femoral, superficial femoral, popliteal, anterior tibial, posterior tibial, and peroneal veins at the time of examination. Disclaimer: DVT could be missed early in the disease when clot burden is minimal. For patients with moderate and high pretest probability of DVT and negative ultrasound, the [employer] clinical guidelines recommend testing with a D-dimer assay or repeat ultrasound in 5-7 days. If symptoms worsen, the Society of radiologists in ultrasound recommends repeating ultrasound even earlier. Electronically signed by Eugenio Martinez 01-18-2025 7:10 PM
[2025-01-18] MEDS: BUDESONIDE 0.5 MG/2 ML VIAL (PULMICORT) NEB SCH (20:34)
[2025-01-18] MEDS: FORMOTEROL 20 MCG/2 ML VIAL NEB SCH (20:35)
[2025-01-18 21:05] LABS: Anion Gap 9.0 (3-11); Blood Urea Nitrogen 34.0 mg/dl (6-23); Calcium 8.8 mg/dl (8.6-10.3); Carbon Dioxide 32.0 mmol/L (21-32); Chloride 105.0 mmol/L (98-107); Creatinine Clr Calc Pharmacy 69.9 ml/min; Glucose 204.0 mg/dl (70-99(Fasting)); Potassium 4.6 mmol/L (3.5-5.1); Sodium 146.0 mmol/L (136-145)
[2025-01-18] MEDS: HEPARIN SOD 5,000 UNIT/0.5 ML VIAL SQ SCH (21:55)
[2025-01-19] MEDS: STAT IV Infusion **Titration per Protocol STA (00:18)
[2025-01-19] MEDS: Nursing to Pharmacy Communication SCH ×2 (00:18→10:00)
[2025-01-19 04:42] LABS: Anion Gap 7.0 (3-11); Calcium 8.6 mg/dl (8.6-10.3); Carbon Dioxide 33.0 mmol/L (21-32); Chloride 105.0 mmol/L (98-107); Magnesium 2.3 mg/dl (1.7-2.4); Potassium 4.4 mmol/L (3.5-5.1); Sodium 145.0 mmol/L (136-145)
[2025-01-19 04:50] LABS: Blood Urea Nitrogen 33.0 mg/dl (6-23); Creatinine Clr Calc Pharmacy 74.8 ml/min; Glucose 174.0 mg/dl (70-99(Fasting))
[2025-01-19 04:56] LABS: Hematocrit (blood only) 45.6 % (42.0-52.0); Hemoglobin 14.7 g/dl (14.0-18.0); Mean Corpuscular Hemoglobin 31.3 pg (25.0-34.0); Mean Corpuscular Volume 97.9 fL (80.0-100.0); Platelet Count 200 K/uL (130-400); RDW Standard Deviation 48.7 fL (36.4-46.3); Red Blood Count 4.69 M/uL (4.70-6.10); White Blood Count 7.12 K/ul (4.8-10.8)
[2025-01-19 05:02] LABS: Immature Granulocytes # (auto) 0.02 K/uL (0.01-0.20); Immature Granulocytes % (auto) 0.3 %
[2025-01-19 06:04] LABS: iSTAT Art Bld Gas Base Excess 6.0 meg/L (-9-1.8); iSTAT Art Bld Gas pCO2 Correct 40 mmHg (35-46); iSTAT Art Bld Gas pH Corrected 7.475 (7.35-7.45); iSTAT Arterial Blood Gas pO2 C 76
[2025-01-19] MEDS: CALCIUM GLUCONATE 1,000 MG/60 ML BAG IV SCH (06:28)
--- NOTE | 2025-01-19 08:17 | Cardiology Consultation ---
Date of Consultation January 19, 2025 Assessment & Plan (1) Unresponsiveness: (2) Cardiomyopathy: (3) Acute hypotension: (4) COPD with emphysema: (5) CHF (congestive heart failure): Plan 1. Unresponsiveness: Although reported to have had a cardiac arrest there is no evidence that that occurred, the cause of his unresponsiveness is not clear. It may have been hypoxia and possibly hypotension as opposed to an arrhythmia. I think that is more likely. 2. Cardiomyopathy: He is reported to have a cardiomyopathy ("HFrEF") and is on Entresto and carvedilol however his ejection fraction is not reduced. Historically perhaps it was. I would hold beta-blockade for now as it may have contributed to his presentation with hypotension and bradycardia. 3. Hypotension: He was hypertensive here but had received treatment in the field, I do not know what his blood pressure was when EMS arrived as I have not seen the report 4. COPD with emphysema: He clearly has lung disease, that may be the primary cause of his unresponsiveness. Through hypoxia 5. CHF: He is reported to have heart failure with a reduced ejection fraction but he does not seem to have reduced ejection fraction at this time nor does he have any significant evidence of congestive heart failure. Obtaining records would be very helpful to determine what his prior cardiac history was, at this point I would not perform any invasive evaluation but we can see what occurs over the next several days. History of Present Illness Reason for Consultation: Out of hospital arrest Attending Physician: Odette Jordan MD History of Present Illness This is a 69-year-old male who presented to the emergency room on January 18, 2025 where he was at a truck stop when he had a fall to the ground, CPR was initiated, EMS arrived and he was reported to have a pulse. He was intubated and brought to the hospital. Per the patient's he was feeling short of breath for a week, uses oxygen as needed and was on a road trip from his home in [place]. He has a history of shortness of breath and with CPAP or oxygen per the chart. Per the EMS notes no shock was delivered and he had a bradycardic heart rate although I do not see documentation of his heart rate in our current chart. Here his heart rate was in the 60s and 50s. His history is notable for HFrEF and evidently a defibrillator had been contemplated. He is on carvedilol 25 mg twice a day and Entresto of unknown dose twice a day. Evaluation here is notable for an echocardiogram showing normal left ventricular systolic function with borderline concentric left ventricular hypertrophy and a dilated right ventricle. He did have a CTA of the chest performed on where he had emphysema but no other significant abnormality. His electrocardiogram on presentation showed sinus rhythm with bifascicular block (left anterior fascicular block and right bundle branch block). His troponin measurements were not significantly elevated (22.7 followed by 33.1 just under 2 hours later). At the time of my evaluation he is intubated and sedated and therefore unrespo nsive. That may not represent his mental status. Allergies Allergy/AdvReac Type Severity Reaction Status Date / Time ibuprofen Allergy Swelling Verified 01/18/25 17:18 of the Eye Home Medications Medication Instructions Recorded Confirmed Type atorvastatin 40 mg tablet 40 mg PO DAILY 01/18/25 01/18/25 History carvedilol 25 mg tablet 25 mg PO BID 01/18/25 01/18/25 History dapagliflozin propanediol 10 mg 10 mg PO DAILY 01/18/25 01/18/25 History tablet (Farxiga) fluticasone fur. 200 mcg-umeclid 1 inh inhalation DIRECTED 01/18/25 01/18/25 History 62.5 mcg-vilant 25 mcg inhalat.powder (Trelegy Ellipta) metformin 500 mg tablet 500 mg PO UD 01/18/25 01/18/25 History montelukast 10 mg tablet 10 mg PO DAILY 01/18/25 01/18/25 History sacubitril 49 mg-valsartan 51 mg 1 tab PO BID 01/18/25 01/18/25 History tablet (Entresto) tadalafil 20 mg tablet 20 mg PO DIRECTED PRN Other 01/18/25 01/18/25 History Patient History Social History Smoking Status: Former smoker Smoking End Date: 2009; Hx Alcohol Use: No Hx Substance Use: No Preferred Language: Thai Communication Ability: Effective Translator Interpreter Required: No Beliefs That Will Affect Care: None Current Living Situation: Spouse and Family Other Information That Helps Us Care for You: No Feels Safe at Home: Yes Assistive Devices: Oxygen - at Night Assistive Devices Comment: O2 4-5L PRN Review of Systems Review of Systems: Unobtainable due to cognitive status Physical Exam Physical Exam: Constitutional: Unresponsive, intubated HEENT: Unremarkable on limited exam Neck: Positive jugular venous distention supine, carotid pulses are normal and equal bilaterally without bruits. Pulmonary: Clear to auscultation bilaterally. Cardiac: Regular rhythm with no murmur, gallop or rub. Abdomen: Soft, nontender with normal bowel sounds. Extremities: +2 bilateral pretibial edema. Neurologic: Exam not possible Skin: No rash, ecchymoses or petechiae. Results & Data Vital Signs (Past 12 Hours) Vital Signs Pulse Resp BP Pulse Ox O2 Del Method FiO2 01/19/25 07:30 71 16 95 50 01/19/25 06:30 95/57 L 01/19/25 06:30 95/57 L 01/19/25 06:24 73 16 95 01/19/25 06:15 86/50 L 01/19/25 06:15 86/50 L 01/19/25 06:15 74 16 96 01/19/25 06:06 74 16 96 01/19/25 06:00 70 22 98 50 01/19/25 05:48 74 22 95 01/19/25 05:45 104/64 01/19/25 05:45 104/64 01/19/25 05:39 74 22 96 01/19/25 05:36 74 22 96 01/19/25 05:31 121/73 01/19/25 05:31 121/73 01/19/25 05:24 72 22 95 01/19/25 05:21 72 22 94 01/19/25 05:15 96/57 L 01/19/25 05:15 96/57 L 01/19/25 05:15 96/57 L 01/19/25 05:00 94/54 L 01/19/25 04:59 71 22 94 01/19/25 04:45 99/60 L 01/19/25 04:44 72 22 94 01/19/25 04:30 72 22 94 01/19/25 04:30 99/58 L 01/19/25 04:30 99/58 L 01/19/25 04:15 71 22 94 01/19/25 04:15 102/62 01/19/25 04:15 102/62 01/19/25 04:15 102/62 01/19/25 04:02 71 22 92 01/19/25 04:00 118/70 01/19/25 04:00 118/70 01/19/25 04:00 50 01/19/25 03:51 72 22 94 01/19/25 03:45 114/67 01/19/25 03:44 71 22 94 01/19/25 03:30 111/63 01/19/25 03:30 111/63 01/19/25 03:30 111/63 01/19/25 03:30 111/63 01/19/25 03:30 70 22 93 01/19/25 03:24 62 23 94 50 01/19/25 03:18 69 22 94 01/19/25 03:15 111/67 01/19/25 03:09 69 22 94 01/19/25 03:00 97/61 L 01/19/25 02:51 70 22 94 01/19/25 02:47 82/52 L 01/19/25 02:47 82/52 L 01/19/25 02:47 82/52 L 01/19/25 02:45 79/50 L 01/19/25 02:37 76/48 L 01/19/25 02:30 69/45 L 01/19/25 02:21 72 22 88 L 01/19/25 02:15 72 22 92 01/19/25 01:45 74 22 93 01/19/25 01:30 73 22 93 01/19/25 01:30 111/67 01/19/25 01:30 111/67 01/19/25 01:21 73 22 92 01/19/25 01:09 70 22 94 01/19/25 00:39 70 22 94 01/19/25 00:30 112/69 01/19/25 00:18 68 22 94 01/19/25 00:15 68 22 94 01/19/25 00:07 69 01/19/25 00:00 68 22 94 01/19/25 00:00 98/57 L 01/19/25 00:00 98/57 L 01/19/25 00:00 40 01/18/25 23:57 Mechanical Vent 40 01/18/25 23:45 69 22 94 01/18/25 23:39 70 22 94 01/18/25 23:33 70 22 94 50 01/18/25 23:30 100/64 01/18/25 23:15 70 22 93 01/18/25 23:12 70 22 94 01/18/25 22:45 70 22 95 01/18/25 22:39 71 22 93 01/18/25 22:31 139/96 01/18/25 22:31 139/96 01/18/25 22:31 139/96 01/18/25 22:21 66 22 94 01/18/25 22:18 65 22 94 01/18/25 22:00 66 22 95 01/18/25 22:00 107/01/18/25 22:00 107/01/18/25 22:00 107/01/18/25 22:00 107/01/18/25 21:45 65 22 95 01/18/25 21:33 65 22 95 01/18/25 21:30 96/63 L 01/18/25 21:30 96/63 L 01/18/25 21:24 65 22 95 01/18/25 21:15 65 22 96 01/18/25 20:45 67 22 96 01/18/25 20:45 61 23 99 50 01/18/25 20:27 64 22 89 L Laboratory Results Cardiac Enzymes 01/18/25 01/18/25 01/18/25 Range/Units 14:08 15:35 15:41 AST TNP 23 Troponin I High Sens 22.7 H 33.1 H D (0-20) pg/ml Coagulation 01/18/25 Range/Units 14:08 PT 11.9 (9.0-12.0) Seconds CBC 01/18/25 01/19/25 Range/Units 14:08 04:04 WBC 4.56 L 7.12 (4.8-10.8) K/ul RBC 4.83 4.69 L (4.70-6.10) M/uL Hgb 14.9 14.7 (14.0-18.0) g/dl Hct 51.5 45.6 (42.0-52.0) % Plt Count 163 200 (130-400) K/uL Neut # (Auto) 2.36 4.89 (1.40-6.50) K/uL Lymph # (Auto) 1.68 1.05 L (1.20-3.40) K/uL [place] # (Auto) 0.42 1.05 H (0.11-0.59) K/uL Eos # (Auto) 0.03 0.08 (0.00-0.50) K/uL Baso # (Auto) 0.02 0.03 (0.00-0.20) K/uL Comprehensive Metabolic Panel 01/18/25 01/18/25 01/18/25 Range/Units 14:08 15:35 20:00 Sodium 143 146 H (136-145) mmol/L Potassium TNP 5.5 H 4.6 Chloride 115 H 105 (98-107) mmol/L Carbon Dioxide 25 32 (21-32) mmol/L BUN 31 H 34 H (6-23) mg/dl Creatinine 1.40 1.36 (0.6-1.4) mg/dl Glucose 202 H 204 H (70-99(Fasting)) mg/dl Calcium 7.2 L 8.8 (8.6-10.3) mg/dl AST TNP 23 ALT 38 (7-52) U/L Alkaline Phosphatase 52 (34-104) U/L Total Protein 4.8 L (6.0-8.3) gm/dl Albumin 2.6 L (3.4-5.0) gm/dl 01/19/25 Range/Units 04:04 Sodium 145 (136-145) mmol/L Potassium 4.4 Chloride 105 (98-107) mmol/L Carbon Dioxide 33 H (21-32) mmol/L BUN 33 H (6-23) mg/dl Creatinine 1.27 (0.6-1.4) mg/dl Glucose 174 H (70-99(Fasting)) mg/dl Calcium 8.6 (8.6-10.3) mg/dl AST ALT (7-52) U/L Alkaline Phosphatase (34-104) U/L Total Protein (6.0-8.3) gm/dl Albumin (3.4-5.0) gm/dl Intake and Output 01/18/25 01/19/25 01/19/25 22:59 06:59 14:59 Intake Total 1329.354 / 2171.182 841.828 / 2171.182 135.923 / 135.923 Output Total 1024 / 1900 Balance 304.354 / 271.182 -33.172 / 271.182 135.923 / 135.923 Intake: IV 1329.354 / 2171.182 841.828 / 2171.182 135.923 / 135.923 Calcium Gluconate 1,000 mg In 60 / 60 112 / 112 60 ml @ 240 mls/hr IV Q15M ANA Rx#:[id number] EPINEPHrine/NSS 4 mg In 254 ml 188.753 / 254.000 65.247 / 254.000 @ 0.1 MCG/KG/MIN 46.025 mls/hr IV .Q5H32M ANA Rx#:[id number] Magnesium Sulfate / D5w 1 gm In 176.667 / 346.667 170 / 346.667 100 ml @ 50 mls/hr IV Q2H ANA Rx#:[id number] Midazolam HCl 125 mg In 250 ml 250.000 / 250.000 @ 1 MG/HR 2 mls/hr IV .Q96H ANA Rx#:[id number] Norepinephrine/D5w 4 mg In 250 55.770 / 307.107 251.337 / 307.107 ml @ 0.05 MCG/KG/MIN 22.05 mls/ hr IV .V04E25J ANA Rx#:[id number] Sodium Bicarbonate 8.4% 150 meq 570.167 / 570.167 In Water, Sterile 1,000 ml @ 250 mls/hr IV .Q4H36M ANA Rx#: [id number] fentaNYL citrate 2,500 mcg In 13.542 / 122.709 109.167 / 122.709 10 / 10 250 ml @ 100 MCG/HR 10 mls/hr IV .Q25H ANA Rx#:[id number] propofoL 1,000 mg In 100 ml @ 74.455 / 260.532 186.077 / 260.532 13.923 / 13.923 30 MCG/KG/MIN 21.744 mls/hr IV .Q4H36M ANA Rx#:[id number] Output: Urine Amount (Catheter) 1024 / 1899 [place]/Indwelling 1024 Other: Weight 117.6 kg 116.7 kg Weight Measurement Method [facility] Diagnostic Findings Telemetry: Sinus rhythm and sinus bradycardia, rate gradually increasing since admission from the 50s into the 80s. No significant arrhythmia identified. PG Care Time/CCT Total # of Minutes Spent Total Time Spent with Patient: Total time spent is greater than 50% in coordination of care (as documented) at patient's floor/unit and/or counseling patient: Coding Level of Care Code 79959 INT INP/OBS CARE 3/75MIN Diagnoses Unresponsiveness R41.89 Cardiomyopathy I42.9 Acute hypotension I95.9 COPD with emphysema J43.9 CHF (congestive heart failure) I50.9
--- NOTE | 2025-01-19 08:19 | XRay Report ---
XR chest 1V portable CLINICAL HISTORY: eval lines/tubes/lung feilds while intubated COMPARISON STUDY: 01/26/2025 FINDINGS: Endotracheal tube tip is stable between the thoracic inlet and the astrid. Right central ca theter is stable. Multiple monitor leads overlie the chest. There is stable moderate cardiomegaly wit hout pulmonary vascular congestion. There is interval hazy opacity at the right base with partial obs curation of the right hemidiaphragm. Interval stranding opacity left lung base with partial obscurati on of the diaphragm. No pneumothorax. IMPRESSION: Interval opacity in the lung bases could represent atelectasis or pneumonia. ACT 112: Negative or not required by law. Electronically signed by: Pedro Alston M.D. 01/19/2025 8:18 AM
--- NOTE | 2025-01-19 08:23 | Critical Care Progress Note ---
Date of Service January 19, 2025 Assessment & Plan (1) Cardiac arrest: (2) Ventilator dependent: (3) Rib fracture: (4) LALO (acute kidney injury): (5) Macrocytic anemia: (6) Dyslipidemia: (7) CORY (obstructive sleep apnea): (8) Cor pulmonale, acute: (9) Pulmonary hypertension: (10) Diabetes mellitus: (11) COPD with emphysema: Plan Reason Critically Ill: 69-year-old male was brought to the hospital postcardiac arrest. Got resuscitated in the ED, intubated and sent to the ICU for further care Past medical history: Dyslipidemia, hypertension, emphysema on home O2, diabetes type 2 Neuro - [facility] ICU: Unable to assess Propofol and fentanyl for sedation Keep patient RASS -1 Cardiac - 2D echo 01/18/2025: EF 60-65%, RV dilated, RV function cannot be assessed, flattened septum --S/p cardiac arrest 6 minutes of CPR, epi, calcium as well as 2 A of bicarb Was started on bicarb drip Try to keep the patient euthermic Doppler lower extremity negative for DVT --History of systolic CHF Last cardiac cath was approximately 8 years ago, no stent placed at that time as per the family Latest EF 60-65% On Entresto as well as Coreg 25 mg twice daily --Pulmonary hypertension with cor pulmonale Etiology is likely type II as well as CORY noncompliant with CPAP Continue with diuretics Respiratory - CTA chest 01/18/2025 personally reviewed: Centrilobular and paraseptal emphysema appreciated bilaterally Small right-sided pleural effusion, minimal left-sided pleural effusion Cardiomegaly No significant mediastinal lymphadenopathy -- VDRF Secondary to cardiac arrest Continue with ventilatory support Keep RASS -1 Daily sedation holidays and SBT's Chlorhexidine mouthwash --COPD with emphysema On Trelegy 200 at home Does not seem to be in exacerbation Nebulized bronchodilators while in the hospital --CORY Not compliant with CPAP GI - -- No acute issues RENAL/LYTES - -- LALO Monitor BUN/creatinine Avoid nephrotoxic medications Strict ins and outs ENDO - -- Diabetes type 2 ICU hypoglycemia protocol HEME - -- Macrocytic anemia Monitor H&H ID - -- No clear signs of infection --Prophylaxis VTE: Heparin GI: Pantoprazole Lines: Right IJ, peripheral Diet: N.p.o. Plan: In/out: Positive 407, urine output 1900 mL AB.48/40/76 Continue with diuretics to keep the patient negative balance Continued vasopressor support to keep MAP greater than 65 Patient will likely need Precedex following which we will do SBT. 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 I have personally spent 64 minutes of critical care time in the direct management of this patient. This is a life/limb threatening event. This includes time spent evaluating patient, direct bedside care, chart review, placing orders, interpretation of diagnostic studies, discussion with consultants, patient, and family members, as well as other required patient management activities. This time is exclusive of all separately billable procedures, and teaching time and separate from and in addition to any other critical care service time. Admission and Anticipated Discharge Date Admission Date: January 18, 2025 Subjective Patient seen and examined at bedside. No acute distress, no adverse events overnight He was on 0.06 of Levophed with systolic blood pressure in 100s. He was on 20 oh propofol and 50 of fentanyl. He was easily arousable. Moving all extremities but not following any commands Saturation was 88-89% on 40% FiO2. Has been afebrile Review of Systems 2 Review of Systems: Unobtainable due to endotracheal tube Physical Exam 2 Physical Exam: Constitutional: No acute distress HEENT: EOMI, sluggish response of bilateral pupils, arcus sternalis bilaterally Respiratory system: Decreased air entry bilaterally, no wheeze, no rhonchi, positive crackles bilateral lower lobe CVS: S1-S2 positive, no murmurs or gallops Abdomen: Soft, nontender, nondistended, positive bowel sounds x4, obese Extremities: +2 pulses bilaterally radialis/ dorsalis pedis, no cyanosis, +2 pitting edema bilateral lower extremity Neuro: Sedated, RASS -1 Psych: Unable to assess G/U: Positive [place] Skin: no rashes, warm and dry Lymphatic: no cervical or axillary lymphadenopathy Results & Data Results & Data Vital Signs (Past 12 Hours) Vital Signs Pulse Resp BP Pulse Ox O2 Del Method FiO2 01/19/25 08:09 79 16 90 01/19/25 08:00 103/65 01/19/25 08:00 103/65 01/19/25 08:00 50 01/19/25 07:57 75 16 89 L 01/19/25 07:54 75 16 90 01/19/25 07:45 97/55 L 01/19/25 07:45 97/55 L 01/19/25 07:33 74 16 91 01/19/25 07:30 98/54 L 01/19/25 07:30 71 16 95 50 01/19/25 07:21 74 16 91 01/19/25 07:18 74 41 H 93 01/19/25 07:15 110/61 01/19/25 07:15 110/61 01/19/25 07:15 110/61 01/19/25 07:09 72 30 H 95 01/19/25 07:06 72 18 95 01/19/25 07:00 103/54 L 01/19/25 07:00 103/54 L 01/19/25 06:30 95/57 L 01/19/25 06:30 95/57 L 01/19/25 06:24 73 16 95 01/19/25 06:15 86/50 L 01/19/25 06:15 86/50 L 01/19/25 06:15 74 16 96 01/19/25 06:06 74 16 96 01/19/25 06:00 70 22 98 50 01/19/25 05:48 74 22 95 01/19/25 05:45 104/64 01/19/25 05:45 104/64 01/19/25 05:39 74 22 96 01/19/25 05:36 74 22 96 01/19/25 05:31 121/73 01/19/25 05:31 121/73 01/19/25 05:24 72 22 95 01/19/25 05:21 72 22 94 01/19/25 05:15 96/57 L 01/19/25 05:15 96/57 L 01/19/25 05:15 96/57 L 01/19/25 05:00 94/54 L 01/19/25 04:59 71 22 94 01/19/25 04:45 99/60 L 01/19/25 04:44 72 22 94 01/19/25 04:30 72 22 94 01/19/25 04:30 99/58 L 01/19/25 04:30 99/58 L 01/19/25 04:15 71 22 94 01/19/25 04:15 102/62 01/19/25 04:15 102/62 01/19/25 04:15 102/62 01/19/25 04:02 71 22 92 01/19/25 04:00 118/70 01/19/25 04:00 118/70 01/19/25 04:00 50 01/19/25 03:51 72 22 94 01/19/25 03:45 114/67 01/19/25 03:44 71 22 94 01/19/25 03:30 111/63 01/19/25 03:30 111/63 01/19/25 03:30 111/63 01/19/25 03:30 111/63 01/19/25 03:30 70 22 93 01/19/25 03:24 62 23 94 50 01/19/25 03:18 69 22 94 01/19/25 03:15 111/67 01/19/25 03:09 69 22 94 01/19/25 03:00 97/61 L 01/19/25 02:51 70 22 94 01/19/25 02:47 82/52 L 01/19/25 02:47 82/52 L 01/19/25 02:47 82/52 L 01/19/25 02:45 79/50 L 01/19/25 02:37 76/48 L 01/19/25 02:30 69/45 L 01/19/25 02:21 72 22 88 L 01/19/25 02:15 72 22 92 01/19/25 01:45 74 22 93 01/19/25 01:30 73 22 93 01/19/25 01:30 111/67 01/19/25 01:30 111/67 01/19/25 01:21 73 22 92 01/19/25 01:09 70 22 94 01/19/25 00:39 70 22 94 01/19/25 00:30 112/69 01/19/25 00:18 68 22 94 01/19/25 00:15 68 22 94 01/19/25 00:07 69 01/19/25 00:00 68 22 94 01/19/25 00:00 98/57 L 01/19/25 00:00 98/57 L 01/19/25 00:00 40 01/18/25 23:57 Mechanical Vent 40 01/18/25 23:45 69 22 94 01/18/25 23:39 70 22 94 01/18/25 23:33 70 22 94 50 01/18/25 23:30 100/64 01/18/25 23:15 70 22 93 01/18/25 23:12 70 22 94 01/18/25 22:45 70 22 95 01/18/25 22:39 71 22 93 01/18/25 22:31 139/96 01/18/25 22:31 139/96 01/18/25 22:31 139/96 01/18/25 22:21 66 22 94 01/18/25 22:18 65 22 94 01/18/25 22:00 66 22 95 01/18/25 22:00 107/69 01/18/25 22:00 107/69 01/18/25 22:00 107/69 01/18/25 22:00 107/69 01/18/25 21:45 65 22 95 01/18/25 21:33 65 22 95 01/18/25 21:30 96/63 L 01/18/25 21:30 96/63 L 01/18/25 21:24 65 22 95 01/18/25 21:15 65 22 96 01/18/25 20:45 67 22 96 01/18/25 20:45 61 23 99 50 01/18/25 20:27 64 22 89 L Laboratory Results 01/19/25 04:04 01/19/25 04:04 Coding Level of Care Code 13473 CRITICAL CARE 1ST 30-74M Diagnoses Cardiac arrest I46.9 Ventilator dependent Z99.11 Rib fracture S22.39XA LALO (acute kidney injury) N17.9 Macrocytic anemia D53.9 Dyslipidemia E78.5 CORY (obstructive sleep apnea) G47.33 Cor pulmonale, acute I26.09 Pulmonary hypertension I27.20 Diabetes mellitus E11.9 COPD with emphysema J43.9
--- NOTE | 2025-01-19 08:23 | Hospitalist Progress Note ---
"Date of Service January 19, 2025 Assessment & Plan (1) Cardiac arrest: (2) Heart failure with reduced ejection fraction: Plan 1) Cardiac arrest: (2) Ventilator dependent: (3) Rib fracture: (4) LALO (acute kidney injury): (5) Macrocytic anemia: (6) Dyslipidemia: (7) CORY (obstructive sleep apnea): (8) Cor pulmonale, acute: (9) Pulmonary hypertension: (10) Diabetes mellitus: (11) COPD with emphysema: This is a 69-year-old male who presented for cardiac arrest on 01/18. #Cardiac arrest | rib fractures ROSC obtained in the field after 6 minutes of CPR Etiology for cardiac arrest is still being worked up, however suspect cardiac arrhythmia (V-fib) as leading diagnosis Per , they had previously discussed with the pick up truck driver about having a defibrillator placed, but this was deferred when patient was started on Entresto Head CT without acute findings Chest CTA without thoracic aortic dissection or pulmonary emboli; severe emphysema + several nondisplaced acute rib fractures Troponin mildly elevated at 22.7 on arrival, repeat pending Cardiology follow up pending , Echocardiogram results reviewed No leukocytosis; afebrile Epinephrine drip Versed drip Bicarb drip Currently on mechanical ventilation Hold all p.o. medications while intubated #Metabolic acidosis VB.06/86/50/24 on arrival #Hyperkalemia Pvyar-jb-tpmj potassium reported to be 9.0 Repeat 5.3 at bedside #HFrEF Reported to have HFrEF, per Currently on Entresto echocardiogram left ventricular systolic function is normal no regional wall motion abnormalities noted borderline concentric left ventricular hypertrophy flattened septum consistent with right ventricular pressure overload left ventricular ejection fraction is 60 to 65% right ventricle is dilated #Former tobacco cigarette smoker | severe emphysema 20-vptw-obea of history stopped smoking in 2009 Patient is normally on supplemental oxygen PRN at baseline recently requiring 4 to 6 L Continuous pulse oximetry Disposition: Admit to ICU VTE PPx: Will defer to ICU Records requested from patient's PCP (Dr. Zhang Magaña) with [facility] in [place], [place] Records requested from patient's pick up truck driver (Dr. Carolina Wills) with [facility] in [place], [place] Admission and Anticipated Discharge Date Admission Date: January 18, 2025 Subjective Patient is extubated, he is on FiO2 of 50% patient is on Levophed of 0.3 he opened his eyes and communicated with his while on BiPAP complaint of chest pain patient has fractured anterior right second fourth fifth ribs pneumothorax Review of Systems Review of Systems: Patient has chest pain denies any shortness of breath he is on a ventilator with a BiPAP mask patient was extubated. Echocardiogram left ventricular systolic function is normal no regional wall motion abnormalities noted there is borderline concentric left ventricular hypertrophy flattened septum with consistent with right ventricular pressure overload left ventricular ejection fraction is 60 to 65% right ventricle is dilated right ventricular function cannot be assessed due to poor image quality aortic valve there is no significant valvular aortic stenosis mitral valve anatomy is normal tricuspid valve anatomy is normal Physical Exam Physical Exam: Constitutional: No acute distress HE ENT: EOMI, sluggis h response of bila teral pupils, Res piratory system: D ecreased air entry bilaterally, no w heeze, no rhonchi, positive crackles bilateral lower l obe CVS: S1-S2 pos itive, no murmurs or gallops Abdomen : Soft, nontender, nondistended, pos itive bowel sounds x4, obese Extremi ties: +2 pulses bi laterally radialis / dorsalis pedis, no cyanosis, +2 pi tting edema bilate ral lower extremit y Neuro patient is spontaneously ope marin eyes Psych: U nable to assess G/ U: Positive [place] Skin: no rashes, warm an d dry Lymphatic: no cervical or axi llary lymphadenopa thy Results & Data Results & Data Vital Signs (Past 12 Hours) Vital Signs Pulse Resp BP Pulse Ox O2 Del Method FiO2 01/19/25 08:17 Mechanical Vent 50 01/19/25 08:09 79 16 90 01/19/25 08:00 103/65 01/19/25 08:00 103/65 01/19/25 08:00 50 01/19/25 07:57 75 16 89 L 01/19/25 07:54 75 16 90 01/19/25 07:45 97/55 L 01/19/25 07:45 97/55 L 01/19/25 07:33 74 16 91 01/19/25 07:30 98/54 L 01/19/25 07:30 71 16 95 50 01/19/25 07:21 74 16 91 01/19/25 07:18 74 41 H 93 01/19/25 07:15 110/61 01/19/25 07:15 110/61 01/19/25 07:15 110/61 01/19/25 07:09 72 30 H 95 01/19/25 07:06 72 18 95 01/19/25 07:00 103/54 L 01/19/25 07:00 103/54 L 01/19/25 06:30 95/57 L 01/19/25 06:30 95/57 L 01/19/25 06:24 73 16 95 01/19/25 06:15 86/50 L 01/19/25 06:15 86/50 L 01/19/25 06:15 74 16 96 01/19/25 06:06 74 16 96 01/19/25 06:00 70 22 98 50 01/19/25 05:48 74 22 95 01/19/25 05:45 104/64 01/19/25 05:45 104/64 01/19/25 05:39 74 22 96 01/19/25 05:36 74 22 96 01/19/25 05:31 121/73 01/19/25 05:31 121/73 01/19/25 05:24 72 22 95 01/19/25 05:21 72 22 94 01/19/25 05:15 96/57 L 01/19/25 05:15 96/57 L 01/19/25 05:15 96/57 L 01/19/25 05:00 94/54 L 01/19/25 04:59 71 22 94 01/19/25 04:45 99/60 L 01/19/25 04:44 72 22 94 01/19/25 04:30 72 22 94 01/19/25 04:30 99/58 L 01/19/25 04:30 99/58 L 01/19/25 04:15 71 22 94 01/19/25 04:15 102/62 01/19/25 04:15 102/62 01/19/25 04:15 102/62 01/19/25 04:02 71 22 92 01/19/25 04:00 118/70 01/19/25 04:00 118/70 01/19/25 04:00 50 01/19/25 03:51 72 22 94 01/19/25 03:45 114/67 01/19/25 03:44 71 22 94 01/19/25 03:30 111/63 01/19/25 03:30 111/63 01/19/25 03:30 111/63 01/19/25 03:30 111/63 01/19/25 03:30 70 22 93 01/19/25 03:24 62 23 94 50 01/19/25 03:18 69 22 94 01/19/25 03:15 111/67 01/19/25 03:09 69 22 94 01/19/25 03:00 97/61 L 01/19/25 02:51 70 22 94 01/19/25 02:47 82/52 L 01/19/25 02:47 82/52 L 01/19/25 02:47 82/52 L 01/19/25 02:45 79/50 L 01/19/25 02:37 76/48 L 01/19/25 02:30 69/45 L 01/19/25 02:21 72 22 88 L 01/19/25 02:15 72 22 92 01/19/25 01:45 74 22 93 01/19/25 01:30 73 22 93 01/19/25 01:30 111/67 01/19/25 01:30 111/67 01/19/25 01:21 73 22 92 01/19/25 01:09 70 22 94 01/19/25 00:39 70 22 94 01/19/25 00:30 112/69 01/19/25 00:18 68 22 94 01/19/25 00:15 68 22 94 01/19/25 00:07 69 01/19/25 00:00 68 22 94 01/19/25 00:00 98/57 L 01/19/25 00:00 98/57 L 01/19/25 00:00 40 01/18/25 23:57 Mechanical Vent 40 01/18/25 23:45 69 22 94 01/18/25 23:39 70 22 94 01/18/25 23:33 70 22 94 50 01/18/25 23:30 100/64 01/18/25 23:15 70 22 93 01/18/25 23:12 70 22 94 01/18/25 22:45 70 22 95 01/18/25 22:39 71 22 93 01/18/25 22:31 139/96 01/18/25 22:31 139/96 01/18/25 22:31 139/96 01/18/25 22:21 66 22 94 01/18/25 22:18 65 22 94 01/18/25 22:00 66 22 95 01/18/25 22:00 107/69 01/18/25 22:00 107/69 01/18/25 22:00 107/01/18/25 22:00 107/01/18/25 21:45 65 22 95 01/18/25 21:33 65 22 95 01/18/25 21:30 96/63 L 01/18/25 21:30 96/63 L 01/18/25 21:24 65 22 95 01/18/25 21:15 65 22 96 01/18/25 20:45 67 22 96 01/18/25 20:45 61 23 99 50 01/18/25 20:27 64 22 89 L PG Care Time/CCT Total # of Minutes Spent Total Time Spent with Patient: Total time spent is greater than 50% in coordination of care (as documented) at patient's floor/unit and/or counseling patient: Coding Level of Care Code 45191 SUB INP/OBS CARE 2/35MIN Diagnoses Cardiac arrest I46.9 Heart failure with reduced ejection fraction I50.20 Time Spent (min) 35"
[2025-01-19] MEDS ORDERED: STAT IV Infusion **Titration per Protocol STA (09:22)
[2025-01-19] MEDS: dexMEDEtomidine 200 MCG/50 ML BAG IV SCH (09:36)
[2025-01-19] MEDS: ACETAMINOPHEN 1,000 MG/100 ML VIAL IV PRN (15:45)
[2025-01-20 04:50] LABS: Anion Gap 3.0 (3-11); Blood Urea Nitrogen 33.0 mg/dl (6-23); Calcium 8.4 mg/dl (8.6-10.3); Carbon Dioxide 38.0 mmol/L (21-32); Chloride 105.0 mmol/L (98-107); Creatinine Clr Calc Pharmacy 76.4 ml/min; Glucose 126.0 mg/dl (70-99(Fasting)); Magnesium 1.9 mg/dl (1.7-2.4); Potassium 4.6 mmol/L (3.5-5.1); Sodium 146.0 mmol/L (136-145)
[2025-01-20] MEDS: MAGNESIUM SULFATE / D5W 1 GM/100 ML BAG IV SCH (07:49)
--- NOTE | 2025-01-20 08:11 | XRay Report ---
EXAM: Radiograph of the Chest 1 View INDICATION: Intubated. Assess lines. TECHNIQUE: Frontal view of the chest. COMPARISON: 01/18/2025 FINDINGS: Lungs and pleural spaces: Increased small right pleural effusion and patchy right basilar airspace disease. Stable left basilar airspace disease. No pneumothorax. Heart: Stable enlargement. Mediastinum: Normal contour. Bones/joints: Stable fracture appearance of the right anterior second rib. Soft tissues: No abnormality noted. No radiopaque foreign body noted. Tubes, lines and devices: Right internal jugular central venous catheter tip in the distal superior vena cava. Upper abdomen: No abnormality noted. IMPRESSION: 1. Slight increased right pleural effusion and right basilar atelectasis or pneumonia. Otherwise unchanged. 2. Lines and tubes as above. 3. Fractured appearance of the right anterior second rib. ACT 112: N/A Electronically signed by Bess Boston 01-20-2025 08:11 AM
--- NOTE | 2025-01-20 08:27 | Critical Care Progress Note ---
Date of Service January 20, 2025 Assessment & Plan (1) Cardiac arrest: (2) Rib fracture: (3) LALO (acute kidney injury): (4) Macrocytic anemia: (5) Dyslipidemia: (6) CORY (obstructive sleep apnea): (7) Cor pulmonale, acute: (8) Pulmonary hypertension: (9) Diabetes mellitus: (10) COPD with emphysema: Plan Reason Critically Ill: 69-year-old male was brought to the hospital postcardiac arrest. Got resuscitated in the ED, intubated and sent to the ICU for further care Past medical history: Dyslipidemia, hypertension, emphysema on home O2, diabetes type 2 Neuro - [facility] ICU: Negative Cardiac - 2D echo 01/18/2025: EF 60-65%, RV dilated, RV function cannot be assessed, flattened septum --S/p cardiac arrest 6 minutes of CPR, epi, calcium as well as 2 A of bicarb Was started on bicarb drip Try to keep the patient euthermic Doppler lower extremity negative for DVT --History of systolic CHF Last cardiac cath was approximately 8 years ago, no stent placed at that time as per the family Latest EF 60-65% On Entresto as well as Coreg 25 mg twice daily --Pulmonary hypertension with cor pulmonale Etiology is likely type II as well as CORY noncompliant with CPAP Continue with diuretics Respiratory - CTA chest 01/18/2025 personally reviewed: Centrilobular and paraseptal emphysema appreciated bilaterally Small right-sided pleural effusion, minimal left-sided pleural effusion Cardiomegaly No significant mediastinal lymphadenopathy -- S/p VDRF Secondary to cardiac arrest Extubated 01/19/2025 --COPD with emphysema On Trelegy 200 at home Does not seem to be in exacerbation Nebulized bronchodilators while in the hospital --CORY Not compliant with CPAP GI - -- No acute issues RENAL/LYTES - -- LALO on CKD Monitor BUN/creatinine Avoid nephrotoxic medications Strict ins and outs ENDO - -- Diabetes type 2 ICU hypoglycemia protocol HEME - -- Macrocytic anemia Monitor H&H ID - -- No clear signs of infection --Prophylaxis VTE: Heparin GI: Pantoprazole Lines: Right IJ, peripheral Diet: N.p.o. Plan: In/out: -1.4 L, urine output 1925 Off vasopressors as of 3 PM 01/19/2025 Was on Precedex 0.4, will try to turn it off. Magnesium being replaced Patient is following commands which is a good thing. Once he is more alert we will try to make him sit on the chair. Will try to DC the central line as well as the Toscano catheter today. He is a little hypernatremic. Will get bedside swallow eval and start him on clear liquids and advance as tolerated if he passes the swallow eval test Decrease Lasix to 40 mg on a daily basis Continue with BiPAP nightly and as needed shortness of breath Case was discussed with primary team Patient's was updated in the room. I have personally spent 32 minutes of critical care time in the direct management of this patient. This is a life/limb threatening event. This includes time spent evaluating patient, direct bedside care, chart review, placing orders, interpretation of diagnostic studies, discussion with consultants, patient, and family members, as well as other required patient management activities. This time is exclusive of all separately billable procedures, and teaching time and separate from and in addition to any other critical care service time. Admission and Anticipated Discharge Date Admission Date: January 18, 2025 Subjective Patient seen and examined at bedside. No acute distress Overnight he was getting restless and delirious for which he was started on Precedex He was on 0.4 Precedex at the time of examination Complains of mild chest pain Was saturating well on BiPAP No abdominal pain No nausea vomiting Review of Systems 2 Review of Systems: All systems reviewed & are unremarkable except as noted in Subjective Physical Exam 2 Physical Exam: Constitutional: No acute distress HEENT: EOMI, PERRLA Respiratory system: Decreased air entry bilaterally, no wheeze, no rhonchi, positive crackles bilateral lower lobe CVS: S1-S2 positive, no murmurs or gallops Abdomen: Soft, nontender, nondistended, positive bowel sounds x4, obese Extremities: +2 pulses bilaterally radialis/ dorsalis pedis, no cyanosis, +2 pitting edema bilateral lower extremity Neuro: Awake and alert oriented to self Psych: Normal mood and affect G/U: Positive Toscano Skin: no rashes, warm and dry Lymphatic: no cervical or axillary lymphadenopathy Results & Data Results & Data Vital Signs (Past 12 Hours) Vital Signs Temp Pulse Pulse Resp BP Pulse Ox O2 Del Method 01/20/25 07:20 74 26 H 90 BiPAP 01/20/25 07:20 74 26 H 90 01/20/25 06:33 76 34 H 91 01/20/25 06:30 105/68 01/20/25 06:30 105/68 01/20/25 06:24 77 20 91 01/20/25 06:00 77 21 90 01/20/25 06:00 101/62 01/20/25 06:00 73 01/20/25 05:48 79 17 90 01/20/25 05:45 104/68 01/20/25 05:45 104/68 01/20/25 05:42 82 17 92 01/20/25 05:30 121/71 01/20/25 05:30 81 25 H 91 01/20/25 05:15 119/72 01/20/25 05:15 79 22 90 01/20/25 05:00 79 21 92 01/20/25 05:00 137/80 01/20/25 04:48 78 21 93 01/20/25 04:45 124/72 01/20/25 04:45 124/72 01/20/25 04:45 124/72 01/20/25 04:42 93 01/20/25 04:33 73 93 01/20/25 04:30 112/67 01/20/25 04:30 112/67 01/20/25 04:30 112/67 01/20/25 04:15 92/58 L 01/20/25 04:12 74 93 01/20/25 04:03 75 91 01/20/25 04:00 90/58 L 01/20/25 04:00 90/58 L 01/20/25 03:57 75 91 01/20/25 03:51 76 90 01/20/25 03:45 99/66 L 01/20/25 03:30 113/66 01/20/25 03:30 113/66 01/20/25 03:30 113/66 01/20/25 03:27 81 91 01/20/25 03:15 82 89 L 01/20/25 03:15 119/74 01/20/25 03:03 82 88 L 01/20/25 02:48 79 86 L 01/20/25 02:45 118/72 01/20/25 02:45 118/72 01/20/25 02:45 118/72 01/20/25 02:39 77 95 01/20/25 02:30 78 94 01/20/25 02:30 115/72 01/20/25 02:30 115/72 01/20/25 02:30 115/72 01/20/25 02:30 115/72 01/20/25 02:17 74 19 93 01/20/25 00:15 37.5 C 109/67 01/20/25 00:15 77 93 01/20/25 00:00 92/61 L 01/20/25 00:00 92/61 L 01/20/25 00:00 92/61 L 01/20/25 00:00 77 93 01/19/25 23:51 78 92 01/19/25 23:45 90/56 L 01/19/25 23:33 76 93 01/19/25 23:30 94/57 L 01/19/25 23:24 83 20 92 01/19/25 23:15 89/62 L 01/19/25 23:09 77 92 01/19/25 22:45 119/73 01/19/25 22:45 119/73 01/19/25 22:45 119/73 01/19/25 22:45 81 94 01/19/25 22:30 77 91 01/19/25 22:24 84 89 L 01/19/25 22:00 103/73 01/19/25 22:00 78 93 01/19/25 21:45 113/67 01/19/25 21:30 100/62 01/19/25 21:30 100/62 01/19/25 21:30 76 93 01/19/25 21:15 85/57 L 01/19/25 21:15 78 93 01/19/25 21:03 80 94 01/19/25 21:00 37.5 C 90/58 L 01/19/25 21:00 90/58 L 01/19/25 20:45 124/72 01/19/25 20:45 79 95 01/19/25 20:33 80 95 01/19/25 20:33 BiPAP 01/19/25 20:30 104/67 FiO2 01/20/25 07:20 50 01/20/25 07:20 50 01/20/25 06:33 01/20/25 06:30 01/20/25 06:30 01/20/25 06:24 01/20/25 06:00 01/20/25 06:00 01/20/25 06:00 01/20/25 05:48 01/20/25 05:45 01/20/25 05:45 01/20/25 05:42 01/20/25 05:30 01/20/25 05:30 01/20/25 05:15 01/20/25 05:15 01/20/25 05:00 01/20/25 05:00 01/20/25 04:48 01/20/25 04:45 01/20/25 04:45 01/20/25 04:45 01/20/25 04:42 01/20/25 04:33 01/20/25 04:30 01/20/25 04:30 01/20/25 04:30 01/20/25 04:15 01/20/25 04:12 01/20/25 04:03 01/20/25 04:00 01/20/25 04:00 01/20/25 03:57 01/20/25 03:51 01/20/25 03:45 01/20/25 03:30 01/20/25 03:30 01/20/25 03:30 01/20/25 03:27 01/20/25 03:15 01/20/25 03:15 01/20/25 03:03 01/20/25 02:48 01/20/25 02:45 01/20/25 02:45 01/20/25 02:45 01/20/25 02:39 01/20/25 02:30 01/20/25 02:30 01/20/25 02:30 01/20/25 02:30 01/20/25 02:30 01/20/25 02:17 50 01/20/25 00:15 01/20/25 00:15 01/20/25 00:00 01/20/25 00:00 01/20/25 00:00 01/20/25 00:00 01/19/25 23:51 01/19/25 23:45 01/19/25 23:33 01/19/25 23:30 01/19/25 23:24 50 01/19/25 23:15 01/19/25 23:09 01/19/25 22:45 01/19/25 22:45 01/19/25 22:45 01/19/25 22:45 01/19/25 22:30 01/19/25 22:24 01/19/25 22:00 01/19/25 22:00 01/19/25 21:45 01/19/25 21:30 01/19/25 21:30 01/19/25 21:30 01/19/25 21:15 01/19/25 21:15 01/19/25 21:03 01/19/25 21:00 01/19/25 21:00 01/19/25 20:45 01/19/25 20:45 01/19/25 20:33 01/19/25 20:33 50 01/19/25 20:30 50 Laboratory Results 01/19/25 04:04 01/20/25 04:15 Coding Level of Care Code 04016 CRITICAL CARE 1ST 30-74M Diagnoses Cardiac arrest I46.9 Rib fracture S22.39XA LALO (acute kidney injury) N17.9 Macrocytic anemia D53.9 Dyslipidemia E78.5 CORY (obstructive sleep apnea) G47.33 Cor pulmonale, acute I26.09 Pulmonary hypertension I27.20 Diabetes mellitus E11.9 COPD with emphysema J43.9
[2025-01-20] MEDS: FUROSEMIDE 40 MG/4 ML VIAL IV SCH (08:57)
--- NOTE | 2025-01-20 08:58 | Hospitalist Progress Note ---
"Date of Service January 20, 2025 Assessment & Plan (1) Cardiac arrest: (2) Heart failure with reduced ejection fraction: Plan 1) Cardiac arrest: Plausible diagnosis but less likely see cardiology consulted (2) Ventilator dependent: Patient was extubated yesterday (3) Rib fracture: Patient has right anterior 2nd, 4th and 5th rib fractures due to CPR in the community (4) LALO (acute kidney injury): (5) Macrocytic anemia: (6) Dyslipidemia: (7) CORY (obstructive sleep apnea): (8) Cor pulmonale, acute: (9) Pulmonary hypertension: (10) Diabetes mellitus: (11) COPD with emphysema: This is a 69-year-old male who presented for cardiac arrest on 01/18. # Loss of consciousness secondary to hypoxia | rib fractures ROSC obtained in the field after 6 minutes of CPR Appreciate cardiology input less likely to have a arrhythmia or cardiac arrest as a cause of his presentation Chest CTA without thoracic aortic dissection or pulmonary emboli; severe emphysema + several nondisplaced acute rib fractures Troponin mildly elevated at 22.7 on arrival, repeat pending Cardiology follow up pending , Echocardiogram results reviewed Left ventricular ejection fraction is within normal limits Flattened septum consistent with right ventricular pressure overload Left ventricular ejection fraction is 60 to 65% patient has heart failure with preserved ejection fraction Right ventricle was dilated #acidosis currently patient is on BiPAP with FiO2 of 0.5 saturating 94% VB.06/86/50/24 on arrival Follow-up arterial blood gas 7.4 8/76/40//30 on 01/19/2025 Serum CO2 level is 38 on 01/20/2025 #Hyperkalemia [id number] potassium reported to be 9.0 Potassium is 4.6 on 01/20/2025 # Hypocalcemia Corrected calcium is 9.5 mg/dL patient has low albumin of 2.6 #HFrEF historical but current evidence shows otherwise patient has heart failure with preserved ejection fraction Reported to have HFrEF, per Currently on Entresto echocardiogram left ventricular systolic function is normal no regional wall motion abnormalities noted borderline concentric left ventricular hypertrophy flattened septum consistent with right ventricular pressure overload left ventricular ejection fraction is 60 to 65% right ventricle is dilated Speaking to the nurse today it seems like patient was noncompliant on his diuretics during his trip #Former tobacco cigarette smoker | severe emphysema 73-socr-afiw of history stopped smoking in 2009 Patient is normally on supplemental oxygen PRN at baseline recently requiring 4 to 6 L Continuous pulse oximetry May need an oxygen concentrator for traveling Disposition: Admit to ICU VTE PPx: Will defer to ICU Records requested from patient's PCP (Dr. Zhang Magaña) with [facility] in [place], [place] Records requested from patient's claim representative (Dr. Carolina Wills) with [facility] in [place], [place] Admission and Anticipated Discharge Date Admission Date: January 18, 2025 Subjective Patient on BiPAP he stayed on nasal cannula for few hours patient is able to take p.o. asking for some water Physical Exam Physical Exam: Constitutional: No acute distress HE ENT: EOMI, sluggis h response of bila teral pupils, Res piratory system: D ecreased air entry bilaterally, no w heeze, no rhonchi, positive crackles bilateral lower l obe CVS: S1-S2 pos itive, no murmurs or gallops Abdomen : Soft, nontender, nondistended, pos itive bowel sounds x4, obese Extremi ties: +2 pulses bi laterally radialis / dorsalis pedis, no cyanosis, +2 pi tting edema bilate ral lower extremit y Neuro patient is spontaneously ope marin eyes Psych: U nable to assess G/ U: Positive Toscano Skin: no rashes, warm an d dry Lymphatic: no cervical or axi llary lymphadenopa thy Results & Data Results & Data Vital Signs (Past 12 Hours) Vital Signs Temp Pulse Pulse Resp BP Pulse Ox O2 Del Method 01/20/25 08:30 74 22 94 BiPAP 01/20/25 08:24 BiPAP 01/20/25 08:15 117/73 01/20/25 08:15 117/73 01/20/25 08:09 77 37 H 89 L 01/20/25 08:00 76 20 90 01/20/25 07:45 74 28 H 90 01/20/25 07:45 110/66 01/20/25 07:30 105/63 01/20/25 07:20 74 26 H 90 BiPAP 01/20/25 07:20 74 26 H 90 01/20/25 07:15 120/72 01/20/25 07:15 75 24 90 BiPAP 01/20/25 07:09 73 23 89 L 01/20/25 06:33 76 34 H 91 01/20/25 06:30 105/68 01/20/25 06:30 105/68 01/20/25 06:24 77 20 91 01/20/25 06:00 77 21 90 01/20/25 06:00 101/62 01/20/25 06:00 73 01/20/25 05:48 79 17 90 01/20/25 05:45 104/68 01/20/25 05:45 104/68 01/20/25 05:42 82 17 92 01/20/25 05:30 121/71 01/20/25 05:30 81 25 H 91 01/20/25 05:15 119/72 01/20/25 05:15 79 22 90 01/20/25 05:00 79 21 92 01/20/25 05:00 137/80 01/20/25 04:48 78 21 93 01/20/25 04:45 124/72 01/20/25 04:45 124/72 01/20/25 04:45 124/72 01/20/25 04:42 93 01/20/25 04:33 73 93 01/20/25 04:30 112/67 01/20/25 04:30 112/67 01/20/25 04:30 112/67 01/20/25 04:15 92/58 L 01/20/25 04:12 74 93 01/20/25 04:03 75 91 01/20/25 04:00 90/58 L 01/20/25 04:00 90/58 L 01/20/25 03:57 75 91 01/20/25 03:51 76 90 01/20/25 03:45 99/66 L 01/20/25 03:30 113/66 01/20/25 03:30 113/66 01/20/25 03:30 113/66 01/20/25 03:27 81 91 01/20/25 03:15 82 89 L 01/20/25 03:15 119/74 01/20/25 03:03 82 88 L 01/20/25 02:48 79 86 L 01/20/25 02:45 118/72 01/20/25 02:45 118/72 01/20/25 02:45 118/72 01/20/25 02:39 77 95 01/20/25 02:30 78 94 01/20/25 02:30 115/72 01/20/25 02:30 115/72 01/20/25 02:30 115/72 01/20/25 02:30 115/72 01/20/25 02:17 74 19 93 01/20/25 00:15 37.5 C 109/67 01/20/25 00:15 77 93 01/20/25 00:00 92/61 L 01/20/25 00:00 92/61 L 01/20/25 00:00 92/61 L 01/20/25 00:00 77 93 01/19/25 23:51 78 92 01/19/25 23:45 90/56 L 01/19/25 23:33 76 93 01/19/25 23:30 94/57 L 01/19/25 23:24 83 20 92 01/19/25 23:15 89/62 L 01/19/25 23:09 77 92 01/19/25 22:45 119/73 01/19/25 22:45 119/73 01/19/25 22:45 119/73 01/19/25 22:45 81 94 01/19/25 22:30 77 91 01/19/25 22:24 84 89 L 01/19/25 22:00 103/73 01/19/25 22:00 78 93 01/19/25 21:45 113/67 01/19/25 21:30 100/62 01/19/25 21:30 100/62 01/19/25 21:30 76 93 01/19/25 21:15 85/57 L 01/19/25 21:15 78 93 01/19/25 21:03 80 94 01/19/25 21:00 37.5 C 90/58 L 01/19/25 21:00 90/58 L FiO2 01/20/25 08:30 0.5 01/20/25 08:24 50 01/20/25 08:15 01/20/25 08:15 01/20/25 08:09 01/20/25 08:00 01/20/25 07:45 01/20/25 07:45 01/20/25 07:30 01/20/25 07:20 50 01/20/25 07:20 50 01/20/25 07:15 01/20/25 07:15 0.5 01/20/25 07:09 01/20/25 06:33 01/20/25 06:30 01/20/25 06:30 01/20/25 06:24 01/20/25 06:00 01/20/25 06:00 01/20/25 06:00 01/20/25 05:48 01/20/25 05:45 01/20/25 05:45 01/20/25 05:42 01/20/25 05:30 01/20/25 05:30 01/20/25 05:15 01/20/25 05:15 01/20/25 05:00 01/20/25 05:00 01/20/25 04:48 01/20/25 04:45 01/20/25 04:45 01/20/25 04:45 01/20/25 04:42 01/20/25 04:33 01/20/25 04:30 01/20/25 04:30 01/20/25 04:30 01/20/25 04:15 01/20/25 04:12 01/20/25 04:03 01/20/25 04:00 01/20/25 04:00 01/20/25 03:57 01/20/25 03:51 01/20/25 03:45 01/20/25 03:30 01/20/25 03:30 01/20/25 03:30 01/20/25 03:27 01/20/25 03:15 01/20/25 03:15 01/20/25 03:03 01/20/25 02:48 01/20/25 02:45 01/20/25 02:45 01/20/25 02:45 01/20/25 02:39 01/20/25 02:30 01/20/25 02:30 01/20/25 02:30 01/20/25 02:30 01/20/25 02:30 01/20/25 02:17 50 01/20/25 00:15 01/20/25 00:15 01/20/25 00:00 01/20/25 00:00 01/20/25 00:00 01/20/25 00:00 01/19/25 23:51 01/19/25 23:45 01/19/25 23:33 01/19/25 23:30 01/19/25 23:24 50 01/19/25 23:15 01/19/25 23:09 01/19/25 22:45 01/19/25 22:45 01/19/25 22:45 01/19/25 22:45 01/19/25 22:30 01/19/25 22:24 01/19/25 22:00 01/19/25 22:00 01/19/25 21:45 01/19/25 21:30 01/19/25 21:30 01/19/25 21:30 01/19/25 21:15 01/19/25 21:15 01/19/25 21:03 01/19/25 21:00 01/19/25 21:00 PG Care Time/CCT Total # of Minutes Spent Total Time Spent with Patient: Total time spent is greater than 50% in coordination of care (as documented) at patient's floor/unit and/or counseling patient: Coding Level of Care Code 62147 SUB INP/OBS CARE 2/35MIN Diagnoses Cardiac arrest I46.9 Heart failure with reduced ejection fraction I50.20 Time Spent (min) 35"
--- NOTE | 2025-01-20 11:38 | Cardiology Progress Note ---
Date of Service January 20, 2025 Assessment & Plan (1) Unresponsiveness: (2) Cardiomyopathy: (3) Acute hypotension: (4) COPD with emphysema: (5) CHF (congestive heart failure): Plan 1. Unresponsiveness: Although reported to have had a cardiac arrest there is no evidence that that occurred, the cause of his unresponsiveness is not clear. It may have been hypoxia and possibly hypotension as opposed to an arrhythmia. Bradycardia is a possibility but we have not observed that following admission. At this point there is no indication for device implantation (pacemaker or ICD). 2. Cardiomyopathy: He is reported to have a cardiomyopathy ("HFrEF") and is on Entresto and carvedilol however his ejection fraction is not reduced. Historically it sounds as though it was. I would like to restart his beta- jillian at a reduced dose (carvedilol 6.25 mg twice daily). We may be able to start his Entresto at reduced dose as well. 3. Hypotension: He was hypertensive here but had received treatment in the field, I do not know what his blood pressure was when EMS arrived as I have not seen the report. His blood pressure has been good since yesterday. 4. COPD with emphysema: He clearly has lung disease, that may be the primary cause of his unresponsiveness, through hypoxia 5. CHF: He is reported to have heart failure with a reduced ejection fraction but he does not seem to have reduced ejection fraction at this time nor does he have any significant evidence left heart failure. He does seem to have right heart failure which may be a long-term issue. Obtaining records would be very helpful document recent right and left heart function, although at this point it would probably not change our plan. Admission and Anticipated Discharge Date Admission Date: January 18, 2025 Subjective Patient is extubated and feeling relatively well, he tells me he has no memory of his event leading to his hospitalization. He is having some chest discomfort but that may be from CPR. I did discuss the events leading up to this hospitalization with his who is present in the room. Evidently he has been having some difficulty with pedal edema and dyspnea on exertion, they drove from [place] to [place] for a cruise and she noticed on the cruise that his legs were swollen but he was not taking his diuretic because it makes him urinate. When they got off the cruise ship they noticed that he had continued edema and he was not urinating much, at the rest stop prior to where he had his event he did not go to the bathroom so she encouraged him to go to the bathroom at the rest stop where this event occurred. Apparently he was quite short of breath, had to rest in the car before walking into the rest stop, may have been wearing oxygen which he has but went into the bathroom by himself. After some time his sent in his son because it was taking a long time (his son is only 8 years old) and at that point it was observed that he had collapsed. His tells me that about 8 years ago he was identified as having a cardiomyopathy (decreased ejection fraction) and was told that it was probably a virus, catheterization was done without significant coronary disease, so I assume it was felt to be nonischemic at that time. One physician advised an ICD but another suggested Entresto and over some period of time his ejection f raction normalized (as we observed here). They are unaware of right heart failure other than the edema but he does have a longstanding lung disease and I do not know that this has been evaluated recently. His is not sure when his last echocardiogram was done, records will hopefully be available when his cutter hand's office opens tomorrow. Physical Exam Physical Exam: Constitutional: Alert, cooperative, arousable but sleepy. HEENT: Unremarkable Neck: No jugular venous distention, carotid pulses are normal and equal bilaterally without bruits. Pulmonary: Clear to auscultation bilaterally. Cardiac: Regular rhythm with no murmur, gallop or rub. Abdomen: Soft, nontender with normal bowel sounds. Extremities: Trace pretibial edema. Neurologic: No focal findings. Skin: No rash, ecchymoses or petechiae. Results & Data Vital Signs (Past 12 Hours) Vital Signs Temp Pulse Pulse Resp BP Pulse Ox O2 Del Method 01/20/25 11:03 82 24 92 BiPAP 01/20/25 11:00 129/73 01/20/25 11:00 129/73 01/20/25 11:00 129/73 01/20/25 10:54 83 23 90 01/20/25 10:45 81 22 90 01/20/25 10:45 114/65 01/20/25 10:45 114/65 01/20/25 10:33 81 22 90 06/22/25 10:30 119/70 01/20/25 10:30 119/70 01/20/25 10:19 113/73 01/20/25 10:19 113/73 01/20/25 10:06 81 21 94 01/20/25 10:03 81 23 89 L 01/20/25 10:00 127/73 01/20/25 10:00 127/73 01/20/25 10:00 127/73 01/20/25 09:48 78 21 89 L 01/20/25 09:45 107/66 01/20/25 09:45 107/66 01/20/25 09:45 107/66 01/20/25 09:33 78 13 90 01/20/25 09:30 78 21 91 01/20/25 09:30 128/71 01/20/25 09:30 128/71 01/20/25 09:30 128/71 01/20/25 09:15 102/63 01/20/25 09:15 102/63 01/20/25 09:15 102/63 01/20/25 09:12 76 21 89 L 01/20/25 09:10 01/20/25 09:06 81 22 80 L 01/20/25 09:00 108/63 01/20/25 08:45 106/63 01/20/25 08:36 75 19 93 01/20/25 08:30 104/62 01/20/25 08:30 104/62 01/20/25 08:30 74 22 94 BiPAP 01/20/25 08:24 BiPAP 01/20/25 08:15 117/73 01/20/25 08:15 117/73 01/20/25 08:09 77 37 H 89 L 01/20/25 08:00 76 20 90 01/20/25 07:45 74 28 H 90 01/20/25 07:45 110/66 01/20/25 07:30 105/63 01/20/25 07:20 74 26 H 90 BiPAP 01/20/25 07:20 74 26 H 90 01/20/25 07:15 120/72 01/20/25 07:15 75 24 90 BiPAP 01/20/25 07:09 73 23 89 L 01/20/25 06:33 76 34 H 91 01/20/25 06:30 105/68 01/20/25 06:30 105/68 01/20/25 06:24 77 20 91 01/20/25 06:00 77 21 90 01/20/25 06:00 101/62 01/20/25 06:00 73 01/20/25 05:48 79 17 90 01/20/25 05:45 104/68 01/20/25 05:45 104/68 01/20/25 05:42 82 17 92 01/20/25 05:30 121/71 01/20/25 05:30 81 25 H 91 01/20/25 05:15 119/72 01/20/25 05:15 79 22 90 01/20/25 05:00 79 21 92 01/20/25 05:00 137/80 01/20/25 04:48 78 21 93 01/20/25 04:45 124/72 01/20/25 04:45 124/72 01/20/25 04:45 124/72 01/20/25 04:42 93 01/20/25 04:33 73 93 01/20/25 04:30 112/67 01/20/25 04:30 112/67 01/20/25 04:30 112/67 01/20/25 04:15 92/58 L 01/20/25 04:12 74 93 01/20/25 04:03 75 91 01/20/25 04:00 90/58 L 01/20/25 04:00 90/58 L 01/20/25 03:57 75 91 01/20/25 03:51 76 90 01/20/25 03:45 99/66 L 01/20/25 03:30 113/66 01/20/25 03:30 113/66 01/20/25 03:30 113/66 01/20/25 03:27 81 91 01/20/25 03:15 82 89 L 01/20/25 03:15 119/74 01/20/25 03:03 82 88 L 01/20/25 02:48 79 86 L 01/20/25 02:45 118/72 01/20/25 02:45 118/72 01/20/25 02:45 118/72 01/20/25 02:39 77 95 01/20/25 02:30 78 94 01/20/25 02:30 115/72 01/20/25 02:30 115/72 01/20/25 02:30 115/72 01/20/25 02:30 115/72 01/20/25 02:17 74 19 93 01/20/25 00:15 37.5 C 109/67 01/20/25 00:15 77 93 01/20/25 00:00 92/61 L 01/20/25 00:00 92/61 L 01/20/25 00:00 92/61 L 01/20/25 00:00 77 93 01/19/25 23:51 78 92 01/19/25 23:45 90/56 L FiO2 01/20/25 11:03 0.4 01/20/25 11:00 01/20/25 11:00 01/20/25 11:00 01/20/25 10:54 01/20/25 10:45 01/20/25 10:45 01/20/25 10:45 01/20/25 10:33 01/20/25 10:30 01/20/25 10:30 01/20/25 10:19 01/20/25 10:19 01/20/25 10:06 01/20/25 10:03 01/20/25 10:00 01/20/25 10:00 01/20/25 10:00 01/20/25 09:48 01/20/25 09:45 01/20/25 09:45 01/20/25 09:45 01/20/25 09:33 01/20/25 09:30 01/20/25 09:30 01/20/25 09:30 01/20/25 09:30 01/20/25 09:15 01/20/25 09:15 01/20/25 09:15 01/20/25 09:12 01/20/25 09:10 40 01/20/25 09:06 01/20/25 09:00 01/20/25 08:45 01/20/25 08:36 01/20/25 08:30 01/20/25 08:30 01/20/25 08:30 0.5 01/20/25 08:24 50 01/20/25 08:15 01/20/25 08:15 01/20/25 08:09 01/20/25 08:00 01/20/25 07:45 01/20/25 07:45 01/20/25 07:30 01/20/25 07:20 50 01/20/25 07:20 50 01/20/25 07:15 01/20/25 07:15 0.5 01/20/25 07:09 01/20/25 06:33 01/20/25 06:30 01/20/25 06:30 01/20/25 06:24 01/20/25 06:00 01/20/25 06:00 01/20/25 06:00 01/20/25 05:48 01/20/25 05:45 01/20/25 05:45 01/20/25 05:42 01/20/25 05:30 01/20/25 05:30 01/20/25 05:15 01/20/25 05:15 01/20/25 05:00 01/20/25 05:00 01/20/25 04:48 01/20/25 04:45 01/20/25 04:45 01/20/25 04:45 01/20/25 04:42 01/20/25 04:33 01/20/25 04:30 01/20/25 04:30 01/20/25 04:30 01/20/25 04:15 01/20/25 04:12 01/20/25 04:03 01/20/25 04:00 01/20/25 04:00 01/20/25 03:57 01/20/25 03:51 01/20/25 03:45 01/20/25 03:30 01/20/25 03:30 01/20/25 03:30 01/20/25 03:27 01/20/25 03:15 01/20/25 03:15 01/20/25 03:03 01/20/25 02:48 01/20/25 02:45 01/20/25 02:45 01/20/25 02:45 01/20/25 02:39 01/20/25 02:30 01/20/25 02:30 01/20/25 02:30 01/20/25 02:30 01/20/25 02:30 01/20/25 02:17 50 01/20/25 00:15 01/20/25 00:15 01/20/25 00:00 01/20/25 00:00 01/20/25 00:00 01/20/25 00:00 01/19/25 23:51 01/19/25 23:45 Laboratory Results Comprehensive Metabolic Panel 01/20/25 Range/Units 04:15 Sodium 146 H (136-145) mmol/L Potassium 4.6 (3.5-5.1) mmol/L Chloride 105 (98-107) mmol/L Carbon Dioxide 38 H (21-32) mmol/L BUN 33 H (6-23) mg/dl Creatinine 1.24 (0.6-1.4) mg/dl Glucose 126 H (70-99(Fasting)) mg/dl Calcium 8.4 L (8.6-10.3) mg/dl Intake and Output 01/19/25 01/20/25 01/20/25 22:59 06:59 14:59 Intake Total 100 / 577.178 125.385 / 577.178 112.762 / 112.762 Output Total 1924 Balance -25 / -1347.822 -749.615 / -1347.822 112.762 / 112.762 Intake: IV 100 / 577.178 125.385 / 577.178 112.762 / 112.762 Acetaminophen 1,000 mg In 100 100 / 100 ml @ 400 mls/hr IV Q8H PRN Rx#: [id number] Magnesium Sulfate / D5w 1 gm In 89.167 / 89.167 100 ml @ 50 mls/hr IV Q2H ANA Rx#:[id number] dexMEDEtomidine 200 mcg In 50 125.385 / 135.915 23.595 / 23.595 ml @ 0.4 MCG/KG/HR 11.67 mls/hr IV .Q4H18M ANA Rx#:[id number] Oral 0 / 0 Output: Urine Amount (Catheter) 1924 [place]/Indwelling 1924 Other: Weight 116.7 kg 109 kg Weight Measurement Method Built in [facility] Diagnostic Findings Telemetry: Sinus rhythm, gradual increase in sinus rate consistent with beta- blockade metabolism. No significant arrhythmia. Current heart rate averaging around 90. PG Care Time/CCT Total # of Minutes Spent Total Time Spent with Patient: Total time spent is greater than 50% in coordination of care (as documented) at patient's floor/unit and/or counseling patient: Coding Level of Care Code 01467 SUB INP/OBS CARE 3/50MIN Diagnoses Unresponsiveness R41.89 Cardiomyopathy I42.9 Acute hypotension I95.9 COPD with emphysema J43.9 CHF (congestive heart failure) I50.9
[2025-01-20] MEDS: 4.5GM X1 IV STA (14:50)
[2025-01-20] MEDS: PIPERACILLIN/TAZOBACTAM 4.5 GM/100 ML BAG IV SCH (19:14)
[2025-01-21 04:36] LABS: Anion Gap 4.0 (3-11); Blood Urea Nitrogen 35.0 mg/dl (6-23); Calcium 8.5 mg/dl (8.6-10.3); Carbon Dioxide 38.0 mmol/L (21-32); Chloride 103.0 mmol/L (98-107); Creatinine Clr Calc Pharmacy 67.9 ml/min; Glucose 139.0 mg/dl (70-99(Fasting)); Magnesium 2.2 mg/dl (1.7-2.4); Potassium 5.0 mmol/L (3.5-5.1); Sodium 145.0 mmol/L (136-145)
[2025-01-21 05:07] LABS: Hematocrit (blood only) 50.7 % (42.0-52.0); Hemoglobin 14.7 g/dl (14.0-18.0); Immature Granulocytes # (auto) 0.03 K/uL (0.01-0.20); Immature Granulocytes % (auto) 0.4 %; Mean Corpuscular Hemoglobin 31.1 pg (25.0-34.0); Mean Corpuscular Volume 107.4 fL (80.0-100.0); Platelet Count 155 K/uL (130-400); RDW Standard Deviation 53.8 fL (36.4-46.3); Red Blood Count 4.72 M/uL (4.70-6.10); White Blood Count 8.16 K/ul (4.8-10.8)
--- NOTE | 2025-01-21 08:46 | Critical Care Progress Note ---
Date of Service January 21, 2025 Assessment & Plan (1) Cardiac arrest: (2) Rib fracture: (3) LALO (acute kidney injury): (4) Macrocytic anemia: (5) Dyslipidemia: (6) CORY (obstructive sleep apnea): (7) Cor pulmonale, acute: (8) Pulmonary hypertension: (9) Diabetes mellitus: (10) COPD with emphysema: Plan Reason Critically Ill: 69-year-old male was brought to the hospital postcardiac arrest. Got resuscitated in the ED, intubated and sent to the ICU for further care Past medical history: Dyslipidemia, hypertension, emphysema on home O2, diabetes type 2 Neuro - Encephalopathy related to likely hypercapnia v other metabolic etiology CAM ICU: Negative Letharigc this am pCO2 114 on VBG Bipap adjusted. Repeat VBG at 1200. Cardiac - 2D echo 01/18/2025: EF 60-65%, RV dilated, RV function cannot be assessed, flattened septum --S/p cardiac arrest 6 minutes of CPR, epi, calcium as well as 2 A of bicarb Was started on bicarb drip Try to keep the patient euthermic Doppler lower extremity negative for DVT --History of systolic CHF Last cardiac cath was approximately 8 years ago, no stent placed at that time as per the family Latest EF 60-65% On Entresto as well as Coreg 25 mg twice daily. Holding this am as patient back on Levophed gtt currently at 0.07mcg/kg/min. --Pulmonary hypertension with cor pulmonale Etiology is likely type II as well as CORY noncompliant with CPAP Hold diuretics in setting of new vasopressor requirement this am. Respiratory - CTA chest 01/18/2025 personally reviewed: Centrilobular and paraseptal emphysema appreciated bilaterally Small right-sided pleural effusion, minimal left-sided pleural effusion Cardiomegaly No significant mediastinal lymphadenopathy -- S/p VDRF; Hypercapnic respiratory failure Secondary to cardiac arrest Extubated 01/19/2025 VBG this am showed pH 7.15, pCO2 114, pO2 56, HCO3 40. on BiPAP current settings 40% rate 20 IPAP: 20 EPAP: 8. TV at 500-600. Repeat VBG at 1200 --COPD with emphysema On Trelegy 200 at home Does not seem to be in exacerbation Nebulized bronchodilators while in the hospital --CORY Not compliant with CPAP --Possible septic shock -maintain MAP > 65 -Levo gtt restarted this am currently at 0.07 -Lactic and random cortisol pending GI - -- No acute issues Hold on advancing diet at this time given need for Bipap. Will attempt to take Bipap off if repeat VBG improves. RENAL/LYTES - -- LALO on CKD Monitor BUN/creatinine Avoid nephrotoxic medications Strict ins and outs Hold on further diuresis at this time given new vasopressor requirement this am. Will spot dose as needed. ENDO - -- Diabetes type 2 ICU hypoglycemia protocol HEME - -- Macrocytic anemia Monitor H&H ID - Concern for bacteremia WBC 8.16 Febrile with tmax 37.8. Blood culture 2/2 aerobic bottles for GPC from 01/20/2025. On empiric zosyn. Load vancomycin. Follow culture data and deescalate as appropriate. --Prophylaxis VTE: Heparin GI: Pantoprazole Lines: Right IJ, peripheral Diet: N.p.o. Patient's and daughter updated at bedside on 01/21/2025 by ICU provider. I have personally spent 45 minutes of critical care time in the direct management of this patient. This is a life/limb threatening event. This includes time spent evaluating patient, direct bedside care, chart review, placing orders, interpretation of diagnostic studies, discussion with consultants, patient, and family members, as well as other required patient management activities. This time is exclusive of all separately billable procedures, and teaching time and separate from and in addition to any other critical care service time. Admission and Anticipated Discharge Date Admission Date: January 18, 2025 Supervising Physician Co-Signing Physician Notes Patient seen and examined. EMR reviewed. Discussed with critical care RHIANNON as well as with bedside critical care nurse in a multidisciplinary rounds. The patient was more somnolent today. He is on BiPAP. Repeat blood gas demonstrated severe hypercapnic respiratory failure. The patient reportedly has a history of sleep disordered breathing but is noncompliant with CPAP in the outpatient setting. Narcotics have been discontinued. He is responding favorably. Chest x-ray shows new opacity in the left lower lobe. Blood cultures have been positive for Staph appendectomy. Lines were changed. Suspect contaminant but will follow clinically. Holding diet until clinically stable. Will need aggressive therapy. Subjective "I have pain." Patient remained on BiPAP overnight and was noted to be agitated, tachypneic, and hypoxic to 89% this am on BiPAP 50% rate 16 IPAP 12/EPAP 8. Patient appeared to be in pain which improved with IV Tylenol as did hypoxia. Lidoderm patch ordered with PRN oxycodone for nondisplaced rib fractures. Chest x-ray this am showed worsening of right basilar atelectasis. VBG this am pH 7.15, pCO2 114, pO2 56, HCO3 40. BiPAP adjusted to 40% rate of 20, IPAP 20, EPAP 8 with TV around 500-600. repeat VBG at 1200. Blood cultures showing GPC in blood cultures 2/. Given patient spiking fevers and now requiring Levophed. Vancomycin load ordered. Continue Zosyn. Will deescalate as appropriate based on culture data. Review of Systems Review of Systems: All systems reviewed & are unremarkable except as noted in HPI & below Physical Exam Physical Exam: Constitutional: No acute distress HEENT: EOMI, PERRLA Respiratory system: Decreased air entry bilaterally R>L, no wheeze, no rhonchi, positive crackles bilateral lower lobe CVS: S1-S2 positive, no murmurs or gallops Abdomen: Soft, nontender, nondistended, rounded, positive bowel sounds x4, obese Extremities: +2 pulses bilaterally radialis/ dorsalis pedis, no cyanosis, +2 pitting edema bilateral lower extremity Neuro: Awake and alert oriented to self Psych: Normal mood and affect G/U: Positive [place] Skin: no rashes, warm and dry Lymphatic: no cervical or axillary lymphadenopathy Results & Data Results & Data Vital Signs (Past 12 Hours) Vital Signs Temp Pulse Pulse Resp BP Pulse Ox O2 Del Method 01/21/25 07:38 91 H 22 93 01/21/25 07:36 91 H 22 93 BiPAP 01/21/25 06:10 133/68 01/21/25 06:03 94 H 31 H 93 01/21/25 05:03 98 H 23 88 L 01/21/25 05:00 147/66 H 01/21/25 05:00 37.7 C H 147/66 H 01/21/25 04:57 94 H 30 H 94 01/21/25 04:31 133/69 01/21/25 04:31 133/69 01/21/25 04:31 133/69 01/21/25 04:21 99 H 23 94 01/21/25 04:09 95 H 21 93 01/21/25 03:24 97 H 30 H 93 01/21/25 03:06 37.7 C H 96 H 30 H 93 01/21/25 03:05 142/77 H 01/21/25 03:05 142/77 H 01/21/25 02:57 96 H 32 H 86 L 01/21/25 02:30 131/81 01/21/25 02:30 131/81 01/21/25 02:30 96 H 29 H 92 01/21/25 02:06 94 H 12 93 01/21/25 01:30 92 H 31 H 88 L 01/21/25 01:30 130/84 01/21/25 01:30 130/84 01/21/25 01:00 131/76 01/21/25 01:00 131/76 01/21/25 01:00 93 H 31 H 92 01/21/25 00:30 128/73 01/21/25 00:00 119/63 01/21/25 00:00 37.8 C H 88 26 H 93 01/20/25 23:55 90 01/20/25 23:30 127/71 01/20/25 23:30 127/71 01/20/25 23:30 127/71 01/20/25 23:12 90 27 H 96 01/20/25 23:08 88 27 H 92 01/20/25 23:03 88 26 H 93 01/20/25 23:00 130/78 01/20/25 22:54 90 28 H 93 01/20/25 22:30 134/79 01/20/25 22:00 89 26 H 92 01/20/25 21:30 114/66 01/20/25 21:27 89 25 H 93 01/20/25 21:09 88 24 92 01/20/25 21:00 106/61 01/20/25 21:00 37.8 C H 106/61 01/20/25 20:51 89 24 90 FiO2 01/21/25 07:38 50 01/21/25 07:36 50 01/21/25 06:10 01/21/25 06:03 01/21/25 05:03 01/21/25 05:00 01/21/25 05:00 01/21/25 04:57 01/21/25 04:31 01/21/25 04:31 01/21/25 04:31 01/21/25 04:21 01/21/25 04:09 01/21/25 03:24 50 01/21/25 03:06 01/21/25 03:05 01/21/25 03:05 01/21/25 02:57 01/21/25 02:30 01/21/25 02:30 01/21/25 02:30 01/21/25 02:06 01/21/25 01:30 01/21/25 01:30 01/21/25 01:30 01/21/25 01:00 01/21/25 01:00 01/21/25 01:00 01/21/25 00:30 01/21/25 00:00 01/21/25 00:00 01/20/25 23:55 01/20/25 23:30 01/20/25 23:30 01/20/25 23:30 01/20/25 23:12 01/20/25 23:08 40 01/20/25 23:03 01/20/25 23:00 01/20/25 22:54 01/20/25 22:30 01/20/25 22:00 01/20/25 21:30 01/20/25 21:27 01/20/25 21:09 01/20/25 21:00 01/20/25 21:00 01/20/25 20:51 Critical Care Results & Data Vital Signs (Past 12 Hours) Vital Signs Temp Pulse Pulse Resp BP Pulse Ox O2 Del Method 01/21/25 08:36 BiPAP 01/21/25 07:38 91 H 22 93 01/21/25 07:36 91 H 22 93 BiPAP 01/21/25 06:10 133/68 01/21/25 06:03 94 H 31 H 93 01/21/25 05:03 98 H 23 88 L 01/21/25 05:00 147/66 H 01/21/25 05:00 37.7 C H 147/66 H 01/21/25 04:57 94 H 30 H 94 01/21/25 04:31 133/69 01/21/25 04:31 133/69 01/21/25 04:31 133/69 01/21/25 04:21 99 H 23 94 01/21/25 04:09 95 H 21 93 01/21/25 03:24 97 H 30 H 93 01/21/25 03:06 37.7 C H 96 H 30 H 93 01/21/25 03:05 142/77 H 01/21/25 03:05 142/77 H 01/21/25 02:57 96 H 32 H 86 L 01/21/25 02:30 131/81 01/21/25 02:30 131/81 01/21/25 02:30 96 H 29 H 92 01/21/25 02:06 94 H 12 93 01/21/25 01:30 92 H 31 H 88 L 01/21/25 01:30 130/84 01/21/25 01:30 130/84 01/21/25 01:00 131/76 01/21/25 01:00 131/76 01/21/25 01:00 93 H 31 H 92 01/21/25 00:30 128/73 01/21/25 00:00 119/63 01/21/25 00:00 37.8 C H 88 26 H 93 01/20/25 23:55 90 01/20/25 23:30 127/71 01/20/25 23:30 127/71 01/20/25 23:30 127/71 01/20/25 23:12 90 27 H 96 01/20/25 23:08 88 27 H 92 01/20/25 23:03 88 26 H 93 01/20/25 23:00 130/78 01/20/25 22:54 90 28 H 93 01/20/25 22:30 134/79 01/20/25 22:00 89 26 H 92 01/20/25 21:30 114/66 01/20/25 21:27 89 25 H 93 01/20/25 21:09 88 24 92 01/20/25 21:00 106/61 01/20/25 21:00 37.8 C H 106/61 01/20/25 20:51 89 24 90 FiO2 01/21/25 08:36 50 01/21/25 07:38 50 01/21/25 07:36 50 01/21/25 06:10 01/21/25 06:03 01/21/25 05:03 01/21/25 05:00 01/21/25 05:00 01/21/25 04:57 01/21/25 04:31 01/21/25 04:31 01/21/25 04:31 01/21/25 04:21 01/21/25 04:09 01/21/25 03:24 50 01/21/25 03:06 01/21/25 03:05 01/21/25 03:05 01/21/25 02:57 01/21/25 02:30 01/21/25 02:30 01/21/25 02:30 01/21/25 02:06 01/21/25 01:30 01/21/25 01:30 01/21/25 01:30 01/21/25 01:00 01/21/25 01:00 01/21/25 01:00 01/21/25 00:30 01/21/25 00:00 01/21/25 00:00 01/20/25 23:55 01/20/25 23:30 01/20/25 23:30 01/20/25 23:30 01/20/25 23:12 01/20/25 23:08 40 01/20/25 23:03 01/20/25 23:00 01/20/25 22:54 01/20/25 22:30 01/20/25 22:00 01/20/25 21:30 01/20/25 21:27 01/20/25 21:09 01/20/25 21:00 01/20/25 21:00 01/20/25 20:51 Lab & Micro Results (Past 24 Hours) RBC 4.72 M/uL (4.70-6.10) 01/21/25 WBC 8.16 K/ul (4.8-10.8) 01/21/25 Hgb 14.7 g/dl (14.0-18.0) 01/21/25 Hct 50.7 % (42.0-52.0) 01/21/25 MCV 107.4 fL (80.0-100.0) H 01/21/25 MCH 31.1 pg (25.0-34.0) 01/21/25 MCHC 29.0 g/dL (32.0-36.0) L 01/21/25 RDW Standard Deviation 53.8 fL (36.4-46.3) H 01/21/25 RDW Coefficient of Variation 13.6 % (11.5-14.5) 01/21/25 Plt Count 155 K/uL (130-400) 01/21/25 MPV 12.1 fL (9.4-12.4) 01/21/25 Neutrophils (%) (Auto) 73.3 % 01/21/25 Lymphocytes (%) (Auto) 9.1 % 01/21/25 Monocytes # (Auto) 1.35 K/uL (0.11-0.59) H 01/21/25 Eosinophils # (Auto) 0.04 K/uL (0.00-0.50) 01/21/25 Immature Granulocyte % (Auto) 0.4 % 01/21/25 Neutrophils # (Auto) 5.98 K/uL (1.40-6.50) 01/21/25 Lymphocytes # (Auto) 0.74 K/uL (1.20-3.40) L 01/21/25 Monocytes # (Auto) 1.35 K/uL (0.11-0.59) H 01/21/25 Eosinophils # (Auto) 0.04 K/uL (0.00-0.50) 01/21/25 Basophils # (Auto) 0.02 K/uL (0.00-0.20) 01/21/25 Immature Granulocyte # (Auto) 0.03 K/uL (0.01-0.20) 5 Na 145 mmol/L (136-145) 01/21/25 K 4.7 mmol/L (3.5-5.1) 01/21/25 Cl 104 mmol/L (98-107) 01/21/25 CO2 36 mmol/L (21-32) H 01/21/25 Anion Gap 5 (3-11) 01/21/25 BUN 42 mg/dl (6-23) H 01/21/25 Creatinine 1.58 mg/dl (0.6-1.4) H 01/21/25 BUN/Creatinine Ratio 26.6 (10-20) H 01/21/25 Glu 166 mg/dl (70-99(Fasting)) H 01/21/25 Ca 8.3 mg/dl (8.6-10.3) L 01/21/25 Phosphorus Level 5.5 mg/dl (2.5-4.9) H 01/21/25 Mg 2.2 mg/dl (1.7-2.4) 01/21/25 03:59 Calcium Level 8.3 mg/dl (8.6-10.3) L 01/21/25 11:28 Venous Blood pH 7.29 (7.36-7.41) L 01/21/25 15:02 Venous Blood Partial Pressure CO2 79 mmHg (38-50) H 01/21/25 15 :02 Venous Blood Partial Pressure O2 43 mmHg 01/21/25 15:02 Venous Blood HCO3 38 mmol/L 01/21/25 15:02 Venous Blood Base Excess 8.3 mEq/L 01/21/25 15:02 Venous Blood Oxygen Saturation 71.2 % 01/21/25 15:02 I & O Totals 24 Hours 01/20/25 01/21/25 01/22/25 06:59 06:59 06:59 Intake Total 577.178 / 577.178 912.762 / 912.762 100 / 100 Output Total 5 / 1925 2024 Balance -1347.822 / -1347.822 -1112.238 / -1112.238 100 / 100 Cumulative 01/18/25 13:26 thru 01/21/25 07:48 Intake Total 3761.122 Output Total 5850 Balance -2088.878 RT Ventilator Mngmt (Last Documented) Ventilator Ordered Settings Ventilator Support Mode CPAP 01/19/25 10:01 Respiratory Rate 22 01/21/25 07:38 Ventilator Tidal Volume 480 01/19/25 08:00 Setting Minute Ventilation 7.5 01/19/25 10:01 Ventilator Positive Pressure 8 01/19/25 10:01 Support Setting Positive End Expiratory 8 01/19/25 10:01 Pressure Fraction of Inspired Oxygen 50 01/21/25 08:36 Machine Comment weaned to 40%O2 01/19/25 07:30 Ventilator - PT Measurements Respiratory Rate 22 Exhaled Tidal Volume 496 Minute Ventilation 7.5 Peak Inspiratory Airway 18 Pressure Plateau Pressure 14 Respiratory Cycle Inspiratory: 1:3.7 Expiratory Ratio Inspiratory Phase Time 0.95 End-Tidal CO2 41 Static Lung Compliance 79.67 Dynamic Lung Compliance 49.60 Normal Static Lung Compliance 48.00 Patient Measurements Comment Patient extubated to BIPAP / 50%O2/ SPO2 92% Coding Level of Care Code 35513 CRITICAL CARE 1ST 30-74M Diagnoses Cardiac arrest I46.9 Rib fracture S22.39XA LALO (acute kidney injury) N17.9 Macrocytic anemia D53.9 Dyslipidemia E78.5 CORY (obstructive sleep apnea) G47.33 Cor pulmonale, acute I26.09 Pulmonary hypertension I27.20 Diabetes mellitus E11.9 COPD with emphysema J43.9
[2025-01-21] MEDS: LIDOCAINE 5% 1 PATCH TD SCH (08:53)
[2025-01-21 08:56] LABS: Base Excess VBG 6.6 mEq/L; HCO3 VBG 40 mmol/L; Oxygen Saturation VBG 85.2 %; PCO2 VBG 114 mmHg (38-50); PO2 VBG 56 mmHg; pH VBG 7.15 (7.36-7.41)
--- NOTE | 2025-01-21 09:07 | XRay Report ---
XR chest 1V portable CLINICAL HISTORY: Eval for pneumonia s/o hypxia riding BiPAP COMPARISON STUDY: 01/20/2025 FINDINGS: Stable right central catheter. Stable cardiomegaly with mild pulmonary vascular congestion. There is increased opacity at the right lung base with obscuration of the right hemidiaphragm. No pn eumothorax. IMPRESSION: Increased opacity right lung base could represent atelectasis, pneumonia, or small pleur al effusion. ACT 112: Negative or not required by law. Electronically signed by: Pedro Alston M.D. 01/21/2025 9:05 AM
--- NOTE | 2025-01-21 09:37 | Electrocardiogram Report ---
Test Reason : Blood Pressure : */* mmHG Vent. Rate : 58 BPM Atrial Rate : 58 BPM P-R Int : 280 ms QRS Dur : 136 ms QT Int : 440 ms P-R-T Axes : 86 262 68 degrees QTcB Int : 431 ms Sinus bradycardia with 1st degree A-V block Right bundle branch block Left anterior fascicular block Anterolateral infarct , age undetermined , could be due to conduction abnormality Abnormal ECG No previous ECGs available Confirmed by Houston Rowell ([id number]) on 01/21/2025 9:37:31 AM Referred By: REFERRED SELF Confirmed By: Houston Rowell
--- NOTE | 2025-01-21 09:41 | Electrocardiogram Report ---
Test Reason : Blood Pressure : */* mmHG Vent. Rate : 55 BPM Atrial Rate : * BPM P-R Int : * ms QRS Dur : 134 ms QT Int : 488 ms P-R-T Axes : * 264 76 degrees QTcB Int : 466 ms Sinus rhythm with atrial bigeminy Right bundle branch block Left anterior fascicular block Abnormal ECG When compared with ECG of 18-Jan-2025 13:54, (unconfirmed) Premature atrial complexes are now Present Confirmed by Houston Rowell ([id number]) on 01/21/2025 9:40:43 AM Referred By: REFERRED SELF Confirmed By: Houston Rowell
[2025-01-21 09:42] LABS: A calco-baum cmplx NotReported Not Detected (NotDetected); Bact fragilis Not Reported Not Detected (NotDetected); Blood Culture Id Panel See PCR Comment (NotDetected); C auris Not Reported Not Detected (NotDetected); Calbicans Not Reported Not Detected (NotDetected); Candida glabrata Not Reported Not Detected (NotDetected); Candida krusei Not Reported Not Detected (NotDetected); Cneoformans/gatti Not Reported Not Detected (NotDetected); Cparapsilosis Not Reported Not Detected (NotDetected); Ctropicalis Not Reported Not Detected (NotDetected); E cloacae compx Not Reported Not Detected (NotDetected); Efaecalis Not Reported Not Detected (NotDetected); Efaecium Not Reported Not Detected (NotDetected); Enterobacterales Not Reported Not Detected (NotDetected); Escherichia coli Not Reported Not Detected (NotDetected); H influenzae Not Reported Not Detected (NotDetected); K aerogenes Not Reported Not Detected (NotDetected); Koxytoca Not Reported Not Detected (NotDetected); Kpneumoniae grp Not Reported Not Detected (NotDetected); Lmonocyt Not Reported Not Detected (NotDetected); N meningitidis Not Reported Not Detected (NotDetected); P aeruginosa Not Reported Not Detected (NotDetected); Proteus spp Not Reported Not Detected (NotDetected); Salmonella spp Not Reported Not Detected (NotDetected); Staph lugdunensis Not Reported Not Detected (NotDetected); Staph spp. Not Reported DETECTED (NotDetected); Staphaureus Not Reported Not Detected (NotDetected); Staphepi Not Reported DETECTED (NotDetected); Staphylococcus spp. DETECTED (NotDetected); Stenmaltophilia Not Reported Not Detected (NotDetected); Strep agal(GrpB) Not Reported Not Detected (NotDetected); Strep pneum Not Reported Not Detected (NotDetected); Strep pyog (GrpA) Not Reported Not Detected (NotDetected); Strep spp Not Reported Not Detected (NotDetected); mecAC Resistant Gene DETECTED (NotDetected)
[2025-01-21 09:47] LABS: Staphylococcus epidermidis DETECTED (NotDetected)
[2025-01-21] MEDS ORDERED: STAT IV Infusion **Titration per Protocol STA (10:32)
[2025-01-21] MEDS ORDERED: VANCOMYCIN CONSULT ACTIVE PRN ×2 (10:51→10:54)
[2025-01-21] MEDS: NOREPINEPHRINE/D5W 4 MG/250 ML PLCT IV SCH (11:00)
[2025-01-21] MEDS: NOREPINEPHRINE/D5W 4 MG/250 ML IV ONE (11:01)
[2025-01-21] MEDS: VANCOMYCIN HCL 2,250 MG in SODIUM CHLORIDE 0.9% 500 ML IV ONE (11:14)
--- NOTE | 2025-01-21 11:21 | Cardiology Progress Note ---
Date of Service January 21, 2025 Assessment & Plan (1) Unresponsiveness: (2) Cardiomyopathy: (3) Acute hypotension: (4) COPD with emphysema: (5) CHF (congestive heart failure): Plan 1. Unresponsiveness: Although reported to have had a cardiac arrest there is no evidence that that occurred, the cause of his unresponsiveness is not clear. It seems likely that it was due to hypoxia and possibly hypotension as opposed to an arrhythmia. Bradycardia is a possibility or a contributor but we have not observed that following admission. At this point there is no indication for device implantation (pacemaker or ICD). 2. Cardiomyopathy: He is reported to have a cardiomyopathy ("HFrEF") and is on Entresto and carvedilol however his ejection fraction is not reduced. Historically it sounds as though it was. I would like to restart his beta- jillian at a reduced dose (carvedilol 6.25 mg twice daily). I did order that but it is held from time to time due to hypotension. We may be able to start his Entresto at reduced dose as well. 3. Hypotension: He was hypertensive here on arrival but had received treatment in the field, I do not know what his blood pressure was when EMS arrived as I have not seen the report. His blood pressure has been labile but acceptable sin ce admission. 4. COPD with emphysema: He clearly has lung disease, that may be the primary cause of his unresponsiveness, through hypoxia. 5. CHF: He is reported to have heart failure with a reduced ejection fraction but he does not seem to have reduced ejection fraction at this time nor does he have any significant evidence left heart failure. He does seem to have right heart failure which may be a long-term issue. We need to be careful of overdiuresis as that will adversely affect left heart filling and may reduce his blood pressure. Obtaining records would be very helpful document recent right and left heart function, although at this point it would probably not change our plan. Admission and Anticipated Discharge Date Admission Date: January 18, 2025 Subjective He is feeling well from the cardiovascular standpoint, he is on BiPAP currently and with that denies shortness of breath. He is having no chest discomfort or other cardiovascular symptoms. He has been at bedrest. Physical Exam Physical Exam: Constitutional: Alert, cooperative, awake and alert on BiPAP. HEENT: Unremarkable Neck: No jugular venous distention, carotid pulses are normal and equal bilaterally without bruits. Pulmonary: Clear to auscultation bilaterally. Cardiac: Regular rhythm with no murmur, gallop or rub. Abdomen: Soft, nontender with normal bowel sounds. Extremities: Trace pretibial edema. Neurologic: No focal findings. Skin: No rash, ecchymoses or petechiae. Results & Data Vital Signs (Past 12 Hours) Vital Signs Temp Pulse Pulse Resp BP Pulse Ox O2 Del Method 01/21/25 09:21 83 22 97 01/21/25 08:36 BiPAP 01/21/25 07:38 91 H 22 93 01/21/25 07:36 91 H 22 93 BiPAP 01/21/25 06:10 133/68 01/21/25 06:03 94 H 31 H 93 01/21/25 05:03 98 H 23 88 L 01/21/25 05:00 147/66 H 01/21/25 05:00 37.7 C H 147/66 H 01/21/25 04:57 94 H 30 H 94 01/21/25 04:31 133/69 01/21/25 04:31 133/69 01/21/25 04:31 133/69 01/21/25 04:21 99 H 23 94 01/21/25 04:09 95 H 21 93 01/21/25 03:24 97 H 30 H 93 01/21/25 03:06 37.7 C H 96 H 30 H 93 01/21/25 03:05 142/77 H 01/21/25 03:05 142/77 H 01/21/25 02:57 96 H 32 H 86 L 01/21/25 02:30 131/81 01/21/25 02:30 131/81 01/21/25 02:30 96 H 29 H 92 01/21/25 02:06 94 H 12 93 01/21/25 01:30 92 H 31 H 88 L 01/21/25 01:30 130/84 01/21/25 01:30 130/84 01/21/25 01:00 131/76 01/21/25 01:00 131/76 01/21/25 01:00 93 H 31 H 92 01/21/25 00:30 128/73 01/21/25 00:00 119/63 01/21/25 00:00 37.8 C H 88 26 H 93 01/20/25 23:55 90 01/20/25 23:30 127/71 01/20/25 23:30 127/71 01/20/25 23:30 127/71 FiO2 01/21/25 09:21 40 01/21/25 08:36 50 01/21/25 07:38 50 01/21/25 07:36 50 01/21/25 06:10 01/21/25 06:03 01/21/25 05:03 01/21/25 05:00 01/21/25 05:00 01/21/25 04:57 01/21/25 04:31 01/21/25 04:31 01/21/25 04:31 01/21/25 04:21 01/21/25 04:09 01/21/25 03:24 50 01/21/25 03:06 01/21/25 03:05 01/21/25 03:05 01/21/25 02:57 01/21/25 02:30 01/21/25 02:30 01/21/25 02:30 01/21/25 02:06 01/21/25 01:30 01/21/25 01:30 01/21/25 01:30 01/21/25 01:00 01/21/25 01:00 01/21/25 01:00 01/21/25 00:30 01/21/25 00:00 01/21/25 00:00 01/20/25 23:55 01/20/25 23:30 01/20/25 23:30 01/20/25 23:30 Laboratory Results CBC 01/21/25 Range/Units 03:59 WBC 8.16 (4.8-10.8) K/ul RBC 4.72 (4.70-6.10) M/uL Hgb 14.7 (14.0-18.0) g/dl Hct 50.7 (42.0-52.0) % Plt Count 155 (130-400) K/uL Neut # (Auto) 5.98 (1.40-6.50) K/uL Lymph # (Auto) 0.74 L (1.20-3.40) K/uL [place] # (Auto) 1.35 H (0.11-0.59) K/uL Eos # (Auto) 0.04 (0.00-0.50) K/uL Baso # (Auto) 0.02 (0.00-0.20) K/uL Comprehensive Metabolic Panel 01/21/25 Range/Units 03:59 Sodium 145 (136-145) mmol/L Potassium 5.0 (3.5-5.1) mmol/L Chloride 103 (98-107) mmol/L Carbon Dioxide 38 H (21-32) mmol/L BUN 35 H (6-23) mg/dl Creatinine 1.35 (0.6-1.4) mg/dl Glucose 139 H (70-99(Fasting)) mg/dl Calcium 8.5 L (8.6-10.3) mg/dl Intake and Output 01/20/25 01/21/25 01/21/25 22:59 06:59 14:59 Intake Total 450 / 912.762 100 / 912.762 200 / 200 Output Total 2024 Balance -50 / -1112.238 -500 / -1112.238 200 / 200 Intake: IV 200 / 512.762 100 / 512.762 200 / 200 Acetaminophen 1,000 mg In 100 100 / 100 100 / 100 ml @ 400 mls/hr IV Q8H PRN Rx#: [id number] Piperacillin/Tazobactam 4.5 gm 100 / 200 100 / 200 100 / 100 In 100 ml @ 25 mls/hr IV Q8H ANA Rx#:[id number] Oral 250 / 400 Output: Urine Amount (Catheter) 2024 [place]ano/Indwelling 2024 Other: Weight 112.4 kg 112.4 kg Weight Measurement Method Built in [facility] Patient Weight 01/22/25 06:59 Weight 112.4 kg Diagnostic Findings Telemetry: Sinus rhythm, rate stable from 80 to 90 bpm on average PG Care Time/CCT Total # of Minutes Spent Total Time Spent with Patient: Total time spent is greater than 50% in coordination of care (as documented) at patient's floor/unit and/or counseling patient: Coding Level of Care Code 67381 SUB INP/OBS CARE 2/35MIN Diagnoses Unresponsiveness R41.89 Cardiomyopathy I42.9 Acute hypotension I95.9 COPD with emphysema J43.9 CHF (congestive heart failure) I50.9
[2025-01-21 11:42] LABS: Base Excess VBG 10.7 mEq/L; HCO3 VBG 42 mmol/L; Oxygen Saturation VBG 74.9 %; PCO2 VBG 91 mmHg (38-50); PO2 VBG 45 mmHg; pH VBG 7.27 (7.36-7.41)
[2025-01-21 11:55] LABS: Anion Gap 5.0 (3-11); Calcium 8.3 mg/dl (8.6-10.3); Carbon Dioxide 36.0 mmol/L (21-32); Chloride 104.0 mmol/L (98-107); Potassium 4.7 mmol/L (3.5-5.1); Sodium 145.0 mmol/L (136-145)
[2025-01-21 12:01] LABS: Blood Urea Nitrogen 42.0 mg/dl (6-23); Creatinine Clr Calc Pharmacy 58.9 ml/min; Glucose 166.0 mg/dl (70-99(Fasting))
--- NOTE | 2025-01-21 13:29 | Pharmacy Report ---
Pharmacy PK ABX Note - Date of Service January 21, 2025 - Assessment and Plan Assessment 69 year old M receiving vancomycin/zosyn for treatment of possible pneumonia/MRSE bacteremia. Pertinent microbiologic data includes: Blood cultures 2/2 aerobic bottles with GPC, Methicillin resistant Staph Epidermidis identified on biofire. Procal elevated. Restarted on pressors. Low grade fevers. Plan Vancomycin * Loading dose: 2250 mg IV x 1 * Maintenance dose: 1250 mg IV every 12 hours * Regimen is predicted to achieve target AUC/BORA of 400-600 mg/L.hr * Random level ordered for 01/23 with AM labs Pharmacy will continue to follow and will adjust dose/frequency as necessary. Thank you. Pharmacy has transitioned to AUC monitoring for vancomycin. AUC/BORA is the preferred PK/PD target and is associated with decreased risk of nephrotoxicity compared to traditional trough targets.
--- NOTE | 2025-01-21 13:45 | Hospitalist Progress Note ---
Date of Service January 21, 2025 Assessment & Plan (1) Cardiac arrest: (2) Heart failure with reduced ejection fraction: Plan This is a 69-year-old male who presented for cardiac arrest on 01/18. Gram-positive bacteremia Continued on Zosyn. Blood cultures 2 sets positive for GPC, PCR positive for staph epi with meca/c resistance. Procalcitonin is elevated. Vancomycin added Unclear source. ?Developing pneumonia with risk of aspiration and recent intuba tion Norepinephrine resumed at 0.05, continued No leukocytosis Repeat blood cultures @ 4872 hours Cortisol is not suppressed No evidence of valvular abnormality on TTE. Loss of consciousness, suspected respiratory arrest versus loss of consciousness due to hypoxia Reportedly ROSC obtained in the field after 6 minutes of CPR. EF is normal, no wall motion abnormalities on echo, troponin with minimal elevation 22.733 on admission.Admitting EKG was sinus with first-degree AV block/right bundle branch block. No territorial ST changes seen - Appreciate cardiology input less likely to have a arrhythmia or cardiac arrest as a cause of his presentation - Chest CTA without thoracic aortic dissection or pulmonary emboli; severe emphysema + several nondisplaced acute rib fractures in the setting of CPR TTE: LVEF 60-65%. RV pressure overload. No noted AV/MV abnormality. Acute hypercapnic respiratory failure, history of COPD/emphysema, CORY noncompliant with NIV History of home oxygen 4-6 L use as needed with emphysema Intubated and the setting of cardiac arrest, subsequently extubated 01/19 respiratory acidosis morning of 01/21. Remains on BiPAP, settings adjusted by ICU. VBG trended. Appreciate senior sourcing manager management/care No wheezing on bedside exam. Formoterol, budesonide continued. Steroids not currently indicated # Acute on chronic heart failure with improved/normalized EF Past history of HFrEF, LVEF normalized on updated echo Entresto held for hypotension Patient reportedly with poor compliance to diuretics. Some leg edema. Admitting CTA with anasarca, right and left pleural effusions, small pericardial effusion Follow-up chest x-rays: Increased right basilar opacity. Suspicious for atelectasis versus developing pneumonia. No overt pulmonary edema Carvedilol continued BNP 1363 - Net negative 1285 x24 hrs. UOP 2185cc Type II DM Continue ICU hyperglycemia protocol Farxiga, metformin held VTE prophylaxis: Heparin subcu Disposition: ICU CODE STATUS: Full code Records requested from patient's PCP (Dr. 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 Carolina Wills) with [facility] in [place], [place] Admission and Anticipated Discharge Date Admission Date: January 18, 2025 Subjective On BiPAP at time of visit. NAD. Shakes head, expresses some frustration hearing his BC results were positive. Endorses some discomfort overlying his ribs/chest, similar to prior. Discussed with nurse. Overnight temperatures up to 37.8. Blood pressure decreasing this morning, requiring Levophed Blood cultures 2/2 positive for GPC, PCR positive for staph epi with MecA/C+. Vancomycin has been added. Procalcitonin is elevated. Net negative 1285 x24 hrs. UOP 2185cc Physical Exam Physical Exam: General: NAD. Cooperative. On BiPAP HEENT: Atraumatic, normocephalic. Vision and hearing grossly intact Pulm: Basilar crackles worse in the right base symmetrical chest rise. No increase in work of breathing. No respiratory distress. Cardiac: RRR, -mrg. Radial pulses intact and symmetrical. Extremities: Mild pitting edema of lower extremities bilaterally Results & Data Results & Data Vital Signs (Past 12 Hours) Vital Signs Temp Pulse Pulse Resp BP Pulse Ox O2 Del Method 01/21/25 11:30 104/59 L 01/21/25 11:27 76 3 L 95 01/21/25 11:10 106/63 01/21/25 10:50 100/55 L 01/21/25 10:48 71 3 L 92 01/21/25 10:40 96/53 L 01/21/25 10:17 57/46 L 01/21/25 10:12 73 0 L 84/53 L 93 01/21/25 10:00 76 13 81/50 L 91 01/21/25 09:21 83 22 97 01/21/25 09:06 84 0 L 108/62 96 01/21/25 08:36 BiPAP 01/21/25 08:00 91 H 9 L 119/54 L 95 01/21/25 07:38 91 H 22 93 01/21/25 07:36 91 H 22 93 BiPAP 01/21/25 07:06 94 H 15 116/60 92 01/21/25 06:10 133/68 01/21/25 06:03 94 H 31 H 93 01/21/25 05:03 98 H 23 88 L 01/21/25 05:00 147/66 H 01/21/25 05:00 37.7 C H 147/66 H 01/21/25 04:57 94 H 30 H 94 01/21/25 04:31 133/69 01/21/25 04:31 133/69 01/21/25 04:31 133/69 01/21/25 04:21 99 H 23 94 01/21/25 04:09 95 H 21 93 01/21/25 03:24 97 H 30 H 93 01/21/25 03:06 37.7 C H 96 H 30 H 93 01/21/25 03:05 142/77 H 01/21/25 03:05 142/77 H 01/21/25 02:57 96 H 32 H 86 L 01/21/25 02:30 131/81 01/21/25 02:30 131/81 01/21/25 02:30 96 H 29 H 92 01/21/25 02:06 94 H 12 93 01/21/25 01:30 92 H 31 H 88 L 01/21/25 01:30 130/84 01/21/25 01:30 130/84 FiO2 01/21/25 11:30 01/21/25 11:27 01/21/25 11:10 01/21/25 10:50 01/21/25 10:48 01/21/25 10:40 01/21/25 10:17 01/21/25 10:12 01/21/25 10:00 01/21/25 09:21 40 01/21/25 09:06 01/21/25 08:36 50 01/21/25 08:00 01/21/25 07:38 50 01/21/25 07:36 50 01/21/25 07:06 01/21/25 06:10 01/21/25 06:03 01/21/25 05:03 01/21/25 05:00 01/21/25 05:00 01/21/25 04:57 01/21/25 04:31 01/21/25 04:31 01/21/25 04:31 01/21/25 04:21 01/21/25 04:09 01/21/25 03:24 50 01/21/25 03:06 01/21/25 03:05 01/21/25 03:05 01/21/25 02:57 01/21/25 02:30 01/21/25 02:30 01/21/25 02:30 01/21/25 02:06 01/21/25 01:30 01/21/25 01:30 01/21/25 01:30 PG Care Time/CCT Total # of Minutes Spent Total Time Spent with Patient: Total time spent is greater than 50% in coordination of care (as documented) at patient's floor/unit and/or counseling patient: Coding Level of Care Code 06973 SUB INP/OBS CARE 3/50MIN Diagnoses Cardiac arrest I46.9 Heart failure with reduced ejection fraction I50.20
--- NOTE | 2025-01-21 14:13 | Procedure Note ---
Procedure Note Date of Service January 21, 2025 INTERNAL JUGULAR CENTRAL LINE PROCEDURE NOTE: Procedure: Internal Jugular Central Line Placement Attending: Dr. Julien Howard MD APC: LUDWIN Arambula Indication: Central Drug Administration, Poor Venous Access, Multiple Lab Draws Necessary, etc. Anesthesia: Lidocaine 1% Consent was signed and placed on the chart prior to procedure. Indication, risks, and benefits were explained at length. A time-out was completed verifying correct patient, procedure, site, positioning, and implants(s) or special equipment if applicable. Patients left Neck was cleansed and draped in the typical sterile fashion using Chloraprep. The Internal Jugular Vein and Carotid Artery were identified using ultrasound. The superficial tissue was anesthetized using 4 mL of 1% lidocaine without epinephrine under direct visualization with the ultrasound. After adequate ane sthetization was achieved, the Internal Jugular vein was cannulated under direct ultrasound guidance using an introducer needle on a syringe. Good venous blood return was maintained prior to removal of syringe from introducer needle. Using Seldinger Technique, a guide wire was advanced through the introducer needle without resistance. The introducer needle was removed and ultrasound images were obtained of the guide wire within the Internal Jugular Vein and saved to the patients medical record. A small incision was made in penetrating fashion at the guide wire insertion site utilizing an 11 blade scalpel. The dilator was advanced to the vessel without resistance. The dilator was exchanged for the triple lumen catheter which was advanced into the vessel without resistance. The guide wire was removed intact from the catheter without issue. Claves were placed on each catheter tip with confirmation of good blood flow from each lumen. Each port was easily flushed with sterile saline. The catheter was placed at 20 cm and sutured in place. BioPatch was applied to the catheter and a sterile Tegaderm dressing was applied over the catheter with careful attention to sterility. Patient tolerated procedure well. No immediate complications were met. Post procedure x-ray was completed, placement was appropriate and no pneumothorax was noted. Images obtained are saved for permanent record Procedural Ultrasound Guidance: Procedure Date: 01/21/2025 @ 1412 Indication: Insertion of left IJ TLC Artery AND Vein visualized: Yes Compressible Vein: Yes Guidewire or Short Catheter seen in vein prior to dilation: Yes Line confirmed in Vein with ultrasound:Yes Images obtained are saved for permanent record. [facility] Procedure Codes (Charges) Tubes, Drains, and Vasc Access Procedure 1: Tubes, Drains, and Vasc Access: [id number] Insertion Of Non-tunneled Catheter Age 4 Yrs> Procedure 2: Tubes, Drains, and Vasc Access: [id number] Ultrasonic Guide For Needle Placement Coding CPT Codes Tubes, Drains, and Vasc Access - Tubes, Drains, and Vasc Access: [id number] Insertion Of Non-tunneled Catheter Age 4 Yrs> ([id number]) Tubes, Drains, and Vasc Access - Tubes, Drains, and Vasc Access: [id number] Ultrason ic Guide For Needle Placement ([id number]) Additional Codes Date of Service (PG.SURGERY)
--- NOTE | 2025-01-21 14:37 | XRay Report ---
XR chest 1V portable CLINICAL HISTORY: evaluate left IJ placement COMPARISON STUDY: 01/21/2025 FINDINGS: Bilateral central venous catheter tips are in the SVC. Left lung apex is off the field of v iew superiorly. No pneumothorax seen. Stable cardiomegaly without pulmonary vascular congestion. Stab le hazy opacity right lung base. IMPRESSION: 1. Limited exam due to the left lung apex being off the field of view superiorly. 2. No pneumothorax seen. ACT 112: Negative or not required by law. Electronically signed by: Pedro Alston M.D. 01/21/2025 2:36 PM
[2025-01-21] MEDS: VANCOMYCIN HCL 2,750 MG in SODIUM CHLORIDE 0.9% 500 ML IV ONE (14:58)
[2025-01-21 15:07] LABS: Base Excess VBG 8.3 mEq/L; HCO3 VBG 38 mmol/L; Oxygen Saturation VBG 71.2 %; PCO2 VBG 79 mmHg (38-50); PO2 VBG 43 mmHg; pH VBG 7.29 (7.36-7.41)
[2025-01-21] MEDS: VANCOMYCIN HCL 1,250 MG in SODIUM CHLORIDE 0.9% 250 ML IV SCH (19:47)
[2025-01-21] MEDS: REMOVE LIDODERM PATCH SCH (21:45)
--- NOTE | 2025-01-22 00:27 | Ultrasound Report ---
Exam(s): US VENOUS LEFT UPPER EXTREMITY EXAM: US Duplex Left Upper Extremity Veins CLINICAL HISTORY: Reason for exam: Evaluate for DVT. TECHNIQUE: Real-time duplex ultrasound scan of the left upper extremity veins integrating B-mode two-dimensional vascular structure, Doppler spectral analysis, color flow Doppler imaging and compression. COMPARISON: None. FINDINGS: Deep veins: Left IJ/brachiocephalic vein not visualized due to surgical dressings. Duplicated brachial system noted. Unremarkable. No DVT in the subclavian, axillary, or brachial veins. The veins demonstrate normal color flow, are normally compressible, with normal phasic flow and/or augmentation response. Superficial veins: Demonstrates an occlusive thrombus in the visualized basilic and cephalic veins. Soft tissues: No acute findings. IMPRESSION: No DVT in the left upper extremity. Positive for a superficial occlusive thrombosis. . Electronically signed by: [place] MD, WAGNER 01/22/25 00:26 AM
[2025-01-22] MEDS: ACETAMINOPHEN 1,000 MG/100 ML VIAL IV PRN (01:24)
[2025-01-22 05:01] LABS: Base Excess VBG 14.0 mEq/L; HCO3 VBG 42 mmol/L; Oxygen Saturation VBG 66.7 %; PCO2 VBG 68 mmHg (38-50); PO2 VBG 38 mmHg; pH VBG 7.40 (7.36-7.41)
[2025-01-22 05:15] LABS: Anion Gap 5.0 (3-11); Calcium 8.3 mg/dl (8.6-10.3); Carbon Dioxide 35.0 mmol/L (21-32); Chloride 104.0 mmol/L (98-107); Magnesium 2.1 mg/dl (1.7-2.4); Potassium 4.6 mmol/L (3.5-5.1); Sodium 144.0 mmol/L (136-145)
[2025-01-22 05:28] LABS: Blood Urea Nitrogen 41.0 mg/dl (6-23); Creatinine Clr Calc Pharmacy 67.9 ml/min; Glucose 123.0 mg/dl (70-99(Fasting))
[2025-01-22 05:48] LABS: Hematocrit (blood only) 45.1 % (42.0-52.0); Hemoglobin 13.4 g/dl (14.0-18.0); Immature Granulocytes # (auto) 0.02 K/uL (0.01-0.20); Immature Granulocytes % (auto) 0.4 %; Mean Corpuscular Hemoglobin 31.4 pg (25.0-34.0); Mean Corpuscular Volume 105.6 fL (80.0-100.0); Platelet Count 102 K/uL (130-400); RBC Morphology Unremarkable; RDW Standard Deviation 53.3 fL (36.4-46.3); Red Blood Count 4.27 M/uL (4.70-6.10); White Blood Count 5.14 K/ul (4.8-10.8)
--- NOTE | 2025-01-22 07:42 | Critical Care Progress Note ---
Date of Service January 22, 2025 Assessment & Plan (1) Cardiac arrest: (2) Rib fracture: (3) LALO (acute kidney injury): (4) Macrocytic anemia: (5) Dyslipidemia: (6) CORY (obstructive sleep apnea): (7) Cor pulmonale, acute: (8) Pulmonary hypertension: (9) Diabetes mellitus: (10) COPD with emphysema: Plan Reason Critically Ill: 69-year-old male was brought to the hospital postcardiac arrest. Got resuscitated in the ED, intubated and sent to the ICU for further care Past medical history: Dyslipidemia, hypertension, emphysema on home O2, diabetes type 2 24-hour events: The patient developed significant hypercarbic respiratory failure last evening. He was on BiPAP. This morning he was up to the chair and initially did well but is now become agitated and combative. Pressors were reinitiated yesterday and line changed out. Recommendations: Neuro -patient with agitated delirium. Likely due to some component of . He said intermittent periods of lucidity. Hypercapnia may also been causing an issue although that appears resolved currently. Will try low- dose of antipsychotics and try and keep the patient oriented and maintain sleep- wake cycles is much as possible. Will need physical therapy and Occupational Therapy Cardiac -[id number] cardiac arrest. No ischemic changes identified. Cardiology consultation reviewed. History of reduced ejection fraction although ejection fraction appears preserved on echocardiogram now. Evidence of right ventricular failure likely due to untreated sleep apnea and other comorbid conditions. Keep euvolemic currently. Holding beta-jillian and Entresto. BNP elevated at 1363. Respiratory -emphysematous changes and known significant sleep disordered breathing. Blood gas this morning appears appropriately compensated. Needs to use noninvasive positive pressure ventilation at night although the patient is now refusing therapy. Continue nebulized budesonide and formoterol currently. No indication for steroids currently. Wean oxygen as tolerated but try and keep saturations at or above 88%. No indication for higher oxygen saturations given concomitant hypercarbia. Can transition to Trelegy once appropriate. He did have a new airspace opacity in the right lower lobe yesterday. Follow-up imaging will be performed in the a.m. GI -no current issues. Advance diet as tolerated RENAL/LYTES -renal function improving. Electrolytes acceptable and acid-base status appropriate. ENDO - glycemic control per protocol. Random cortisol was low however the patient's hypotension is resolved. HEME -microcytic anemia. No indication for transfusion. No evidence of acute blood loss. Continue to follow ID -patient was febrile yesterday with elevated procalcitonin. Blood cultures grew staph epi. He was placed empirically on vancomycin in addition to the Z osyn he was already receiving and an infectious disease consult has been placed. Will defer antibiotics to them although I think they can likely be de- escalated. Suspect the staph epi is a contaminant. Suspect Zosyn can be stopped after 3 days of empiric therapy --Prophylaxis VTE: Heparin GI: Pantoprazole Lines: Left IJ, peripheral Diet: Per speech Patient is currently expressing a desire to not pursue additional interventions. Recommended that he discuss with his family and they make a coherent decision regarding CODE STATUS moving forward. If the patient remains off BiPAP today he can likely transfer to the floor. Critical care services will sign off once he leaves the ICU. Feel free to contact us with questions or concerns Total time for todays visit is 55 minutes which includes reviewing records prior to patient arrival, the face to face visit, as well as time to record documentation after patient departure including coordination of care with other specialists and providers. Admission and Anticipated Discharge Date Admission Date: January 18, 2025 Subjective Patient seen and examined. Hemoreviewed. Discussed with overnight critical care RHIANNON as well as with bedside critical care nurse on multidisciplinary rounds. Review of Systems Review of Systems: All systems reviewed & are unremarkable except as noted in Subjective Physical Exam Constitutional: WD/WN, vitals as above Neck: trachea midline, no thyromegaly Respiratory: normal respiratory effort, lungs clear to auscultation Cardiovascular: RRR, no murmur, no edema Gastrointestinal (Abdomen): normal bowel sounds, soft, nontender, no hepatosplenomegaly Musculoskeletal: Extremities: extremities normal to inspection Skin: no rashes, warm and dry Neurologic: Nonfocal exam Lymphatic: no cervical lymphadenopathy Results & Data Results & Data Vital Signs (Past 12 Hours) Vital Signs Temp Pulse Pulse Resp BP Pulse Ox O2 Del Method 01/22/25 07:39 83 20 94 BiPAP 01/22/25 07:27 84 01/22/25 06:33 82 97 01/22/25 06:30 148/72 H 01/22/25 06:30 36.5 C 01/22/25 06:15 77 19 97 01/22/25 06:06 69 94 01/22/25 06:00 20 123/68 01/22/25 06:00 123/68 01/22/25 05:57 73 95 01/22/25 05:30 103/58 L 01/22/25 05:30 103/58 L 01/22/25 05:30 74 93 01/22/25 05:00 111/62 01/22/25 05:00 111/62 01/22/25 05:00 111/62 01/22/25 05:00 71 95 01/22/25 04:30 108/49 L 01/22/25 04:18 75 93 01/22/25 04:00 76 17 94 01/22/25 04:00 120/65 01/22/25 04:00 120/65 01/22/25 04:00 120/65 01/22/25 04:00 120/65 01/22/25 03:35 116/53 L 01/22/25 03:35 116/53 L 01/22/25 03:33 75 89 L 01/22/25 03:30 76 91 01/22/25 03:03 83 10 L 89 L 01/22/25 03:00 133/87 01/22/25 03:00 133/87 01/22/25 02:57 80 88 L 01/22/25 02:39 84 19 89 L 01/22/25 02:26 90 22 92 01/22/25 02:03 83 14 90 01/22/25 02:01 97/54 L 01/22/25 01:57 85 90 01/22/25 01:36 86 88 L 01/22/25 01:18 88 16 91 01/22/25 00:36 82 92 01/22/25 00:30 120/61 01/22/25 00:30 120/61 01/22/25 00:09 84 13 91 01/22/25 00:00 101/55 L 01/22/25 00:00 101/55 L 01/22/25 00:00 85 20 93 01/21/25 23:52 146/75 H 01/21/25 23:52 146/75 H 01/21/25 23:48 86 16 92 01/21/25 23:48 88 01/21/25 23:36 84 13 92 01/21/25 23:13 83 20 90 01/21/25 23:06 89 20 86 L 01/21/25 23:01 145/82 H 01/21/25 23:00 83 21 91 01/21/25 22:31 114/68 01/21/25 22:31 114/68 01/21/25 22:30 84 18 88 L 01/21/25 22:09 79 96 01/21/25 22:00 101/57 L 01/21/25 21:57 83 94 01/21/25 21:09 81 93 01/21/25 21:00 117/60 01/21/25 20:51 84 12 93 01/21/25 20:30 86 20 93 01/21/25 20:30 36.6 C 01/21/25 20:29 86 20 93 BiPAP 01/21/25 20:24 85 92 01/21/25 20:19 BiPAP 01/21/25 20:00 117/63 01/21/25 19:57 86 92 O2 Flow Rate FiO2 01/22/25 07:39 40 01/22/25 07:27 01/22/25 06:33 01/22/25 06:30 01/22/25 06:30 01/22/25 06:15 01/22/25 06:06 01/22/25 06:00 01/22/25 06:00 01/22/25 05:57 01/22/25 05:30 01/22/25 05:30 01/22/25 05:30 01/22/25 05:00 01/22/25 05:00 01/22/25 05:00 01/22/25 05:00 01/22/25 04:30 01/22/25 04:18 01/22/25 04:00 01/22/25 04:00 01/22/25 04:00 01/22/25 04:00 01/22/25 04:00 01/22/25 03:35 01/22/25 03:35 01/22/25 03:33 01/22/25 03:30 01/22/25 03:03 01/22/25 03:00 01/22/25 03:00 01/22/25 02:57 01/22/25 02:39 01/22/25 02:26 40 01/22/25 02:03 01/22/25 02:01 01/22/25 01:57 01/22/25 01:36 01/22/25 01:18 01/22/25 00:36 01/22/25 00:30 01/22/25 00:30 01/22/25 00:09 01/22/25 00:00 01/22/25 00:00 01/22/25 00:00 01/21/25 23:52 01/21/25 23:52 01/21/25 23:48 01/21/25 23:48 01/21/25 23:36 01/21/25 23:13 40 01/21/25 23:06 01/21/25 23:01 01/21/25 23:00 01/21/25 22:31 01/21/25 22:31 01/21/25 22:30 01/21/25 22:09 01/21/25 22:00 01/21/25 21:57 01/21/25 21:09 01/21/25 21:00 01/21/25 20:51 01/21/25 20:30 40 01/21/25 20:30 01/21/25 20:29 40 01/21/25 20:24 01/21/25 20:19 40 01/21/25 20:00 01/21/25 19:57 Critical Care Results & Data Vital Signs (Past 12 Hours) Vital Signs Temp Pulse Pulse Resp BP Pulse Ox O2 Del Method 01/22/25 07:39 83 20 94 BiPAP 01/22/25 07:27 84 01/22/25 06:33 82 97 01/22/25 06:30 148/72 H 01/22/25 06:30 36.5 C 01/22/25 06:15 77 19 97 01/22/25 06:06 69 94 01/22/25 06:00 20 123/68 01/22/25 06:00 123/68 01/22/25 05:57 73 95 01/22/25 05:30 103/58 L 01/22/25 05:30 103/58 L 01/22/25 05:30 74 93 01/22/25 05:00 111/62 01/22/25 05:00 111/62 01/22/25 05:00 111/62 01/22/25 05:00 71 95 01/22/25 04:30 108/49 L 01/22/25 04:18 75 93 01/22/25 04:00 76 17 94 01/22/25 04:00 120/65 01/22/25 04:00 120/65 01/22/25 04:00 120/65 01/22/25 04:00 120/65 01/22/25 03:35 116/53 L 01/22/25 03:35 116/53 L 01/22/25 03:33 75 89 L 01/22/25 03:30 76 91 01/22/25 03:03 83 10 L 89 L 01/22/25 03:00 133/87 01/22/25 03:00 133/87 01/22/25 02:57 80 88 L 01/22/25 02:39 84 19 89 L 01/22/25 02:26 90 22 92 01/22/25 02:03 83 14 90 01/22/25 02:01 97/54 L 01/22/25 01:57 85 90 01/22/25 01:36 86 88 L 01/22/25 01:18 88 16 91 01/22/25 00:36 82 92 01/22/25 00:30 120/61 01/22/25 00:30 120/61 01/22/25 00:09 84 13 91 01/22/25 00:00 101/55 L 01/22/25 00:00 101/55 L 01/22/25 00:00 85 20 93 01/21/25 23:52 146/75 H 01/21/25 23:52 146/75 H 01/21/25 23:48 86 16 92 01/21/25 23:48 88 01/21/25 23:36 84 13 92 01/21/25 23:13 83 20 90 01/21/25 23:06 89 20 86 L 01/21/25 23:01 145/82 H 01/21/25 23:00 83 21 91 01/21/25 22:31 114/68 01/21/25 22:31 114/68 01/21/25 22:30 84 18 88 L 01/21/25 22:09 79 96 01/21/25 22:00 101/57 L 01/21/25 21:57 83 94 01/21/25 21:09 81 93 01/21/25 21:00 117/60 01/21/25 20:51 84 12 93 01/21/25 20:30 86 20 93 01/21/25 20:30 36.6 C 01/21/25 20:29 86 20 93 BiPAP 01/21/25 20:24 85 92 01/21/25 20:19 BiPAP 01/21/25 20:00 117/63 01/21/25 19:57 86 92 O2 Flow Rate FiO2 01/22/25 07:39 40 01/22/25 07:27 01/22/25 06:33 01/22/25 06:30 01/22/25 06:30 01/22/25 06:15 01/22/25 06:06 01/22/25 06:00 01/22/25 06:00 01/22/25 05:57 01/22/25 05:30 01/22/25 05:30 01/22/25 05:30 01/22/25 05:00 01/22/25 05:00 01/22/25 05:00 01/22/25 05:00 01/22/25 04:30 01/22/25 04:18 01/22/25 04:00 01/22/25 04:00 01/22/25 04:00 01/22/25 04:00 01/22/25 04:00 01/22/25 03:35 01/22/25 03:35 01/22/25 03:33 01/22/25 03:30 01/22/25 03:03 01/22/25 03:00 01/22/25 03:00 01/22/25 02:57 01/22/25 02:39 01/22/25 02:26 40 01/22/25 02:03 01/22/25 02:01 01/22/25 01:57 01/22/25 01:36 01/22/25 01:18 01/22/25 00:36 01/22/25 00:30 01/22/25 00:30 01/22/25 00:09 01/22/25 00:00 01/22/25 00:00 01/22/25 00:00 01/21/25 23:52 01/21/25 23:52 01/21/25 23:48 01/21/25 23:48 01/21/25 23:36 01/21/25 23:13 40 01/21/25 23:06 01/21/25 23:01 01/21/25 23:00 01/21/25 22:31 01/21/25 22:31 01/21/25 22:30 01/21/25 22:09 01/21/25 22:00 01/21/25 21:57 01/21/25 21:09 01/21/25 21:00 01/21/25 20:51 01/21/25 20:30 40 01/21/25 20:30 01/21/25 20:29 40 01/21/25 20:24 01/21/25 20:19 40 01/21/25 20:00 01/21/25 19:57 Lab & Micro Results (Past 24 Hours) RBC 4.27 M/uL (4.70-6.10) L 01/22/25 WBC 5.14 K/ul (4.8-10.8) 01/22/25 Hgb 13.4 g/dl (14.0-18.0) L 01/22/25 Hct 45.1 % (42.0-52.0) 01/22/25 MCV 105.6 fL (80.0-100.0) H 01/22/25 MCH 31.4 pg (25.0-34.0) 01/22/25 MCHC 29.7 g/dL (32.0-36.0) L 01/22/25 RDW Standard Deviation 53.3 fL (36.4-46.3) H 01/22/25 RDW Coefficient of Variation 13.5 % (11.5-14.5) 01/22/25 Plt Count 102 K/uL (130-400) L 01/22/25 MPV 12.9 fL (9.4-12.4) H 01/22/25 Neutrophils (%) (Auto) 64.6 % 01/22/25 Lymphocytes (%) (Auto) 13.0 % 01/22/25 Monocytes # (Auto) 0.98 K/uL (0.11-0.59) H 01/22/25 Eosinophils # (Auto) 0.12 K/uL (0.00-0.50) 01/22/25 Immature Granulocyte % (Auto) 0.4 % 01/22/25 Neutrophils # (Auto) 3.32 K/uL (1.40-6.50) 01/22/25 Lymphocytes # (Auto) 0.67 K/uL (1.20-3.40) L 01/22/25 Monocytes # (Auto) 0.98 K/uL (0.11-0.59) H 01/22/25 Eosinophils # (Auto) 0.12 K/uL (0.00-0.50) 01/22/25 Basophils # (Auto) 0.03 K/uL (0.00-0.20) 01/22/25 Immature Granulocyte # (Auto) 0.02 K/uL (0.01-0.20) 5 Red Blood Cell Morphology Unremarkable 01/22/25 Na 144 mmol/L (136-145) 01/22/25 K 4.6 mmol/L (3.5-5.1) 01/22/25 Cl 104 mmol/L (98-107) 01/22/25 CO2 35 mmol/L (21-32) H 01/22/25 Anion Gap 5 (3-11) 01/22/25 BUN 41 mg/dl (6-23) H 01/22/25 Creatinine 1.37 mg/dl (0.6-1.4) 01/22/25 BUN/Creatinine Ratio 29.9 (10-20) H 01/22/25 Glu 123 mg/dl (70-99(Fasting)) H 01/22/25 Ca 8.3 mg/dl (8.6-10.3) L 01/22/25 Phosphorus Level 3.2 mg/dl (2.5-4.9) 01/22/25 Mg 2.1 mg/dl (1.7-2.4) 01/22/25 04:41 Calcium Level 8.3 mg/dl (8.6-10.3) L 01/22/25 04:41 Venous Blood pH 7.40 (7.36-7.41) 01/22/25 04:41 Venous Blood Partial Pressure CO2 68 mmHg (38-50) H 01/22/25 04 :41 Venous Blood Partial Pressure O2 38 mmHg 01/22/25 04:41 Venous Blood HCO3 42 mmol/L 01/22/25 04:41 Venous Blood Base Excess 14.0 mEq/L 01/22/25 04:41 Venous Blood Oxygen Saturation 66.7 % 01/22/25 04:41 Microbiology 01/20/25 14:24 Aerobic Blood Culture - Preliminary Blood Gram positive cocci clusters Anaerobic Blood Culture - Final 01/20/25 14:23 Aerobic Blood Culture - Preliminary Blood Gram positive cocci clusters Anaerobic Blood Culture - Final 01/21/25 17:14 Gram Stain - Final Bladder Diagnostic Findings (Past 24 Hours) Chest X-Ray 01/21/25 08:38 XR chest 1V portable CLINICAL HISTORY: Eval for pneumonia s/o hypxia riding BiPAP COMPARISON STUDY: 01/20/2025 FINDINGS: Stable right central catheter. Stable cardiomegaly with mild pulmonary vascular congestion. There is increased opacity at the right lung base with obscuration of the right hemidiaphragm. No pneumothorax. IMPRESSION: Increased opacity right lung base could represent atelectasis, pneumonia, or small pleural effusion. ACT 112: Negative or not required by law. Electronically signed by: Pedro Alston M.D. 01/21/2025 9:05 AM Chest X-Ray 01/21/25 14:05 XR chest 1V portable CLINICAL HISTORY: evaluate left IJ placement COMPARISON STUDY: 01/21/2025 FINDINGS: Bilateral central venous catheter tips are in the SVC. Left lung apex is off the field of view superiorly. No pneumothorax seen. Stable cardiomegaly without pulmonary vascular congestion. Stable hazy opacity right lung base. IMPRESSION: 1. Limited exam due to the left lung apex being off the field of view superiorly. 2. No pneumothorax seen. ACT 112: Negative or not required by law. Electronically signed by: Pedro Alston M.D. 01/21/2025 2:36 PM Extremity Venous Study 01/21/25 14:13 Exam(s): US VENOUS LEFT UPPER EXTREMITY EXAM: US Duplex Left Upper Extremity Veins CLINICAL HISTORY: Reason for exam: Evaluate for DVT. TECHNIQUE: Real-time duplex ultrasound scan of the left upper extremity veins integrating B-mode two-dimensional vascular structure, Doppler spectral analysis, color flow Doppler imaging and compression. COMPARISON: None. FINDINGS: Deep veins: Left IJ/brachiocephalic vein not visualized due to surgical dressings. Duplicated brachial system noted. Unremarkable. No DVT in the subclavian, axillary, or brachial veins. The veins demonstrate normal color flow, are normally compressible, with normal phasic flow and/or augmentation response. Superficial veins: Demonstrates an occlusive thrombus in the visualized basilic and cephalic veins. Soft tissues: No acute findings. IMPRESSION: No DVT in the left upper extremity. Positive for a superficial occlusive thrombosis. . Electronically signed by: [place] MD, WAGNER 01/22/25 00:26 AM I & O Totals 24 Hours 01/21/25 01/22/25 01/23/25 06:59 06:59 06:59 Intake Total 912.762 / 289.343 4065.479 / 1630.479 Output Total 2024 / 2024 796 / 796 Balance -1112.238 / -1112.238 834.479 / 834.479 Cumulative 01/18/25 13:26 thru 01/22/25 06:00 Intake Total 5291.601 Output Total 6646 Balance -1354.399 RT Ventilator Mngmt (Last Documented) Ventilator Ordered Settings Ventilator Support Mode CPAP 01/19/25 10:01 Respiratory Rate 20 01/22/25 07:39 Ventilator Tidal Volume 480 01/19/25 08:00 Setting Minute Ventilation 7.5 01/19/25 10:01 Ventilator Positive Pressure 8 01/19/25 10:01 Support Setting Positive End Expiratory 8 01/19/25 10:01 Pressure Fraction of Inspired Oxygen 40 01/22/25 07:39 Machine Comment weaned to 40%O2 01/19/25 07:30 Ventilator - PT Measurements Respiratory Rate 20 Exhaled Tidal Volume 496 Minute Ventilation 7.5 Peak Inspiratory Airway 18 Pressure Plateau Pressure 14 Respiratory Cycle Inspiratory: 1:3.7 Expiratory Ratio Inspiratory Phase Time 0.95 End-Tidal CO2 41 Static Lung Compliance 79.67 Dynamic Lung Compliance 49.60 Normal Static Lung Compliance 48.00 Patient Measurements Comment Patient extubated to BIPAP 16/8 50%O2/ SPO2 92% Coding Level of Care Code 02262 SUB INP/OBS CARE 3/50MIN Diagnoses Cardiac arrest I46.9 Rib fracture S22.39XA LALO (acute kidney injury) N17.9 Macrocytic anemia D53.9 Dyslipidemia E78.5 CORY (obstructive sleep apnea) G47.33 Cor pulmonale, acute I26.09 Pulmonary hypertension I27.20 Diabetes mellitus E11.9 COPD with emphysema J43.9
[2025-01-22] MEDS: HALOPERIDOL LACTATE 5 MG/ML 1 ML VIAL IV STA (07:54)
[2025-01-22] MEDS: HALOPERIDOL LACTATE 5 MG/ML 1 ML VIAL IM STA (08:43)
--- NOTE | 2025-01-22 09:38 | Infectious Disease Consult ---
Date of Consultation January 22, 2025 Assessment & Plan (1) Staphylococcus epidermidis bacteremia: (2) Cardiac arrest: (3) LALO (acute kidney injury): (4) Acute hypotension: (5) Diabetes mellitus: Plan 69yo M with h/o T2DM, CHF, severe emphysema on O2 prn, HTN, HLD who presented on 01/18 after a cardiac arrest. Had 6min of CPR. He did have CONN x 1wk. In the ER, he was afebrile, hypotensive, intubated and started on pressors. Initial labs with WBC 4.56, Cr 1.40, LFT wnl. Lactate 2.2. Elevated troponin. UA 0-5 WBC. MRSA screen neg. CTA chest with cardiomegaly, rib fractures, small right and trace left pleural effusions with subpleural opacities. LE doppler neg for DVT. TTE without valvular disease. Extubated and off pressors 01/19. However, pressors were reinitiated on 01/21, line changed. Tm 37.8. PCT 0.86>1.98. CXR with opacity in R lung base noted 01/19. LUE doppler with superficial occlusive thrombosis. BCx also noted to have GPC, BCID with MRSE. He is getting vanc/zosyn. Off pressors since 01/21. ID consulted 01/22. Regarding the blood cx, the anaerobic bottles were not run from 01/20. I spoke to [facility] and they said there may not have been enough blood. The results we have are of only 2 bottles not 4 and both bottles are positive. Therefore, difficult to determine whether these are contaminant or real. Repeat cx were drawn about 30min after he received vancomycin. He does have a right lung opacity, but otherwise nothing else noted as source on examination. Per chart, he had line changed on 01/21. Ill leave on vancomycin until repeat cultures result. Regarding his right lung opacity, could consider aspiration given recent events. PCT was elevated, currently on HFNC. Ill leave on zosyn for now for empiric coverage. Per RN, minimal respiratory secretions. # BCx + MRSE # Hypoxia on HFNC # RLL opacity, elevated PCT # Cardiac arrest # T2DM - f/u blood cx - sputum cx already ordered - will keep on vancomycin pharmacy dosed protocol while waiting for blood cx - continue zosyn for now Will continue to follow. If questions or concerns, contact via [employer] or Infectious Disease Call Center . Frieda Clifton MD [facility], Division of Infectious Diseases Consultation Information Consultation was provided via telemedicine using two-way real-time interactive telecommunication between the patient and the telemedicine provider. For the duration of the visit, the provider was performing the assessment from a different facility than the patient. This includesuse of bluetooth stethoscope forauscultationperformed by the telepresenter that the telemedicine provider can hear if described in the physical exam. Fire Inspector contact information: Please call [facility] Call Center [phone]. (Phone Number For Physician Use Only) After establishing a telemedicine visit, patient was: Patient was verified with two unique identifiers, Patient/authorized rep acknowledged consent and understanding and Gave permission to continue telehealth session Time Spent with Patient: Initial => 75 min History of Present Illness Reason for Consultation: gram + bacteremia Attending Physician: Prasanna Mitchell MD History of Present Illness 69yo M with h/o T2DM, CHF, severe emphysema on O2 prn, HTN, HLD who presented on 01/18 after a cardiac arrest. He had been on a [place] with [place] and on the way back, they had stopped at a gas station where he suddenly collapsed. Had 6min of CPR. He did have CONN x 1wk. In the ER, he was afebrile, hypotensive, intubated and started on pressors. Initial labs with WBC 4.56, Cr 1.40, LFT wnl. Lactate 2.2. Elevated troponin. UA 0-5 WBC. MRSA screen neg. CTA chest with cardiomegaly, rib fractures, small right and trace left pleural effusions with subpleural opacities. LE doppler neg for DVT. TTE without valvular disease. Extubated and off pressors 01/19. However, pressors were reinitiated on 01/21, line changed. Tm 37.8. CXR with opacity in R lung base noted 01/19. LUE doppler with superficial occlusive thrombosis. BCx also noted to have GPC, BCID with MRSE. He is getting vanc/zosyn. ID consulted 01/22. On evaluation, patient lethargic after getting Haldol. Per RN, he has been agitated, no diarrhea, minimal secretions. Allergies Allergy/AdvReac Type Severity Reaction Status Date / Time ibuprofen Allergy Swelling Verified 01/18/25 17:18 of the Eye Home Medications Medication Instructions Recorded Confirmed Type atorvastatin 40 mg tablet 40 mg PO DAILY 01/18/25 01/18/25 History carvedilol 25 mg tablet 25 mg PO BID 01/18/25 01/18/25 History dapagliflozin propanediol 10 mg 10 mg PO DAILY 01/18/25 01/18/25 History tablet (Farxiga) fluticasone fur. 200 mcg-umeclid 1 inh inhalation DIRECTED 01/18/25 01/18/25 History 62.5 mcg-vilant 25 mcg inhalat.powder (Trelegy Ellipta) metformin 500 mg tablet 500 mg PO UD 01/18/25 01/18/25 History montelukast 10 mg tablet 10 mg PO DAILY 01/18/25 01/18/25 History sacubitril 49 mg-valsartan 51 mg 1 tab PO BID 01/18/25 01/18/25 History tablet (Entresto) tadalafil 20 mg tablet 20 mg PO DIRECTED PRN Other 01/18/25 01/18/25 History Patient History Social History Smoking Status: Former smoker Smoking End Date: 2009; Hx Alcohol Use: No Hx Substance Use: No Preferred Language: Estonian Communication Ability: Effective Pickling Solution Maker Required: No Beliefs That Will Affect Care: None Current Living Situation: Spouse and Family Other Information That Helps Us Care for You: No Feels Safe at Home: Yes Assistive Devices: Oxygen - Continuous Assistive Devices Comment: O2 4-5L PRN Review of System Unable to obtain as patient is lethargic Physical Exam Physical Exam: General: no acute distress HEENT: mmm Lungs: clear Heart: nl heart sounds Abdomen: soft Back: no open wounds Ext: no LE edema Skin: no rash Neuro: grunts during exam otherwise lethargic Results & Data Vital Signs (Past 12 Hours) Vital Signs Temp Pulse Pulse Resp BP Pulse Ox O2 Del Method 01/22/25 09:21 84 12 91 High Flow Nasal Cannula 01/22/25 09:02 142/68 H 01/22/25 08:48 85 11 L 99 01/22/25 08:33 83 19 95 01/22/25 08:31 111/72 01/22/25 08:30 79 13 96 BiPAP 01/22/25 08:19 131/69 01/22/25 08:15 85 22 94 01/22/25 08:12 85 15 95 01/22/25 08:09 144/63 H 01/22/25 08:09 144/63 H 01/22/25 08:09 144/63 H 01/22/25 08:09 144/63 H 01/22/25 07:51 86 20 01/22/25 07:39 83 20 94 BiPAP 01/22/25 07:31 134/79 01/22/25 07:31 134/79 01/22/25 07:27 83 14 93 01/22/25 07:27 84 01/22/25 07:01 114/65 01/22/25 07:00 84 5 L 97 01/22/25 06:33 82 97 01/22/25 06:30 148/72 H 01/22/25 06:30 36.5 C 01/22/25 06:15 77 19 97 01/22/25 06:06 69 94 01/22/25 06:00 20 123/68 01/22/25 06:00 123/68 01/22/25 05:57 73 95 01/22/25 05:30 103/58 L 01/22/25 05:30 103/58 L 01/22/25 05:30 74 93 01/22/25 05:00 111/62 01/22/25 05:00 111/62 01/22/25 05:00 111/62 01/22/25 05:00 71 95 01/22/25 04:30 108/49 L 01/22/25 04:18 75 93 01/22/25 04:00 76 17 94 01/22/25 04:00 120/65 01/22/25 04:00 120/65 01/22/25 04:00 120/65 01/22/25 04:00 120/65 01/22/25 03:35 116/53 L 01/22/25 03:35 116/53 L 01/22/25 03:33 75 89 L 01/22/25 03:30 76 91 01/22/25 03:03 83 10 L 89 L 01/22/25 03:00 133/87 01/22/25 03:00 133/87 01/22/25 02:57 80 88 L 01/22/25 02:39 84 19 89 L 01/22/25 02:26 90 22 92 01/22/25 02:03 83 14 90 01/22/25 02:01 97/54 L 01/22/25 01:57 85 90 01/22/25 01:36 86 88 L 01/22/25 01:18 88 16 91 01/22/25 00:36 82 92 01/22/25 00:30 120/61 01/22/25 00:30 120/61 01/22/25 00:09 84 13 91 01/22/25 00:00 101/55 L 01/22/25 00:00 101/55 L 01/22/25 00:00 85 20 93 01/21/25 23:52 146/75 H 01/21/25 23:52 146/75 H 01/21/25 23:48 86 16 92 01/21/25 23:48 88 01/21/25 23:36 84 13 92 01/21/25 23:13 83 20 90 01/21/25 23:06 89 20 86 L 01/21/25 23:01 145/82 H 01/21/25 23:00 83 21 91 01/21/25 22:31 114/68 01/21/25 22:31 114/68 01/21/25 22:30 84 18 88 L 01/21/25 22:09 79 96 01/21/25 22:00 101/57 L 01/21/25 21:57 83 94 O2 Flow Rate FiO2 01/22/25 09:21 35 40 01/22/25 09:02 01/22/25 08:48 01/22/25 08:33 01/22/25 08:31 01/22/25 08:30 40 01/22/25 08:19 01/22/25 08:15 50 01/22/25 08:12 01/22/25 08:09 01/22/25 08:09 01/22/25 08:09 01/22/25 08:09 01/22/25 07:51 01/22/25 07:39 40 01/22/25 07:31 01/22/25 07:31 01/22/25 07:27 01/22/25 07:27 01/22/25 07:01 01/22/25 07:00 01/22/25 06:33 01/22/25 06:30 01/22/25 06:30 01/22/25 06:15 01/22/25 06:06 01/22/25 06:00 01/22/25 06:00 01/22/25 05:57 01/22/25 05:30 01/22/25 05:30 01/22/25 05:30 01/22/25 05:00 01/22/25 05:00 01/22/25 05:00 01/22/25 05:00 01/22/25 04:30 01/22/25 04:18 01/22/25 04:00 01/22/25 04:00 01/22/25 04:00 01/22/25 04:00 01/22/25 04:00 01/22/25 03:35 01/22/25 03:35 01/22/25 03:33 01/22/25 03:30 01/22/25 03:03 01/22/25 03:00 01/22/25 03:00 01/22/25 02:57 01/22/25 02:39 01/22/25 02:26 40 01/22/25 02:03 01/22/25 02:01 01/22/25 01:57 01/22/25 01:36 01/22/25 01:18 01/22/25 00:36 01/22/25 00:30 01/22/25 00:30 01/22/25 00:09 01/22/25 00:00 01/22/25 00:00 01/22/25 00:00 01/21/25 23:52 01/21/25 23:52 01/21/25 23:48 01/21/25 23:48 01/21/25 23:36 01/21/25 23:13 40 01/21/25 23:06 01/21/25 23:01 01/21/25 23:00 01/21/25 22:31 01/21/25 22:31 01/21/25 22:30 01/21/25 22:09 01/21/25 22:00 01/21/25 21:57 Laboratory Results Labs reviewed. Diagnostic Findings Imaging reviewed.
--- NOTE | 2025-01-22 09:58 | Hospitalist Progress Note ---
Date of Service January 22, 2025 Assessment & Plan (1) Respiratory failure: Plan: History of home oxygen 4-6 L use as needed with emphysema Intubated and the setting of cardiac arrest, subsequently extubated 01/19 respiratory acidosis morning of 01/21. Remains on BiPAP, settings adjusted by ICU. VBG trended. 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 Formoterol, budesonide continued. Steroids not currently indicated (2) Gram-positive bacteremia: Plan: Continued on Zosyn. Blood cultures 2 sets positive for GPC, PCR positive for staph epi with meca/c resistance. Procalcitonin is elevated. Vancomycin added Unclear source. ?Developing pneumonia with risk of aspiration and recent intubation Norepinephrine resumed at 0.05, continued No leukocytosis Repeat blood cultures @ 4872 hours Cortisol is not suppressed -ID consulted (3) Cardiac arrest: Plan: Loss of consciousness, suspected respiratory arrest versus loss of consciousness due to hypoxia Reportedly ROSC obtained in the field after 6 minutes of CPR. EF is normal, no wall motion abnormalities on echo, troponin with minimal elevation 22.733 on admission.Admitting EKG was sinus with first-degree AV block/right bundle branch block. No territorial ST changes seen - Appreciate cardiology input less likely to have a arrhythmia or cardiac arrest as a cause of his presentation - Chest CTA without thoracic aortic dissection or pulmonary emboli; severe emphysema + several nondisplaced acute rib fractures in the setting of CPR TTE: LVEF 60-65%. RV pressure overload. No noted AV/MV abnormality - Cardiology following (4) Heart failure with reduced ejection fraction: Plan: Past history of HFrEF, LVEF normalized on updated echo Entresto held for hypotension Patient reportedly with poor compliance to diuretics. Some leg edema. Admitting CTA with anasarca, right and left pleural effusions, small pericardial effusion Follow-up chest x-rays: Increased right basilar opacity. Suspicious for atelectasis versus developing pneumonia. No overt pulmonary edema Carvedilol continued BNP 1363 (5) Diabetes mellitus: Plan: Continue ICU hyperglycemia protocol Farxiga, metformin held Plan This is a 69-year-old male who presented for cardiac arrest on 01/18. Records requested from patient's PCP (Dr. 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 Craolina Wills) with [facility] in [place], [place] Admission and Anticipated Discharge Date Admission Date: January 18, 2025 Subjective Pt with episode of agitation this am, was given haldol. Review of Systems Review of Systems: CONST: Negative for fever, body aches and chills. HENT: Negative for neck pain/stiffness, headache, congestion, sore throat, swelling. EYES: Negative for discharge/pain or vision changes. RESP: Negative for cough/hemoptysis and shortness of breath. CV: Negative chest pain, difficulty breathing, palpitations. ABD: Negative pain, nausea, vomiting. : Negative increase frequency, dysuria, blood in urine or stool. MUSC: Negative for muscle aches, edema. SKIN: Negative rash, lesions/sores. NEURO: Negative headache, dizziness, weakness. Physical Exam Physical Exam: GENERAL APPEARANCE NAD, activity normal for age, well developed/ well nourished, no cyanosis, pallor, or diaphoresis. EYES lids/conjunctiva normal. EARS/NOSE/THROAT Mucous membranes moist, nares normal, lips/teeth normal uvula midline without oral pharyngeal erythema, exudate or swelling TMs normal bilaterally. No lymphangitis/lymphedema. HEAD/NECK bipap in place RESPIRATORY respiratory effort normal, speaks in full sentences, no tripod position, no accessory muscle use. Lungs clear to auscultation without rhonchi, wheezes, rales CARDIAC Regular rate and rhythm, no edema. ABDOMINAL Soft, ND/NT. No evidence of fluid wave. No pulsatile masses on exam, rebound tenderness, Ng sign or pain over Mcburney's point. MUSCLES/EXTREMITIES No abnormal range of motion, no swelling. SKIN Warm, pink and dry. No rashes, dermatoses, petechiae or lesions. NEUROLOGICAL Speech is clear and appropriate. Normal level of consciousness. Gait and coordination are normal. 5/5 strength in all extremities. PSYCH Normal mood and affect. Judgement/competence is appropriate Results & Data Results & Data Vital Signs (Past 12 Hours) Vital Signs Temp Pulse Pulse Resp BP Pulse Ox O2 Del Method 01/22/25 09:21 84 12 91 High Flow Nasal Cannula 01/22/25 09:02 142/68 H 01/22/25 08:48 85 11 L 99 01/22/25 08:33 83 19 95 01/22/25 08:31 111/72 01/22/25 08:30 79 13 96 BiPAP 01/22/25 08:19 131/69 01/22/25 08:15 85 22 94 01/22/25 08:12 85 15 95 01/22/25 08:09 144/63 H 01/22/25 08:09 144/63 H 01/22/25 08:09 144/63 H 01/22/25 08:09 144/63 H 01/22/25 07:51 86 20 01/22/25 07:39 83 20 94 BiPAP 01/22/25 07:31 134/79 01/22/25 07:31 134/79 01/22/25 07:27 83 14 93 01/22/25 07:27 84 01/22/25 07:01 114/65 01/22/25 07:00 84 5 L 97 01/22/25 06:33 82 97 01/22/25 06:30 148/72 H 01/22/25 06:30 36.5 C 01/22/25 06:15 77 19 97 01/22/25 06:06 69 94 01/22/25 06:00 20 123/68 01/22/25 06:00 123/68 01/22/25 05:57 73 95 01/22/25 05:30 103/58 L 01/22/25 05:30 103/58 L 01/22/25 05:30 74 93 01/22/25 05:00 111/62 01/22/25 05:00 111/62 01/22/25 05:00 111/62 01/22/25 05:00 71 95 01/22/25 04:30 108/49 L 01/22/25 04:18 75 93 01/22/25 04:00 76 17 94 01/22/25 04:00 120/65 01/22/25 04:00 120/65 01/22/25 04:00 120/65 01/22/25 04:00 120/65 01/22/25 03:35 116/53 L 01/22/25 03:35 116/53 L 01/22/25 03:33 75 89 L 01/22/25 03:30 76 91 01/22/25 03:03 83 10 L 89 L 01/22/25 03:00 133/87 01/22/25 03:00 133/87 01/22/25 02:57 80 88 L 01/22/25 02:39 84 19 89 L 01/22/25 02:26 90 22 92 01/22/25 02:03 83 14 90 01/22/25 02:01 97/54 L 01/22/25 01:57 85 90 01/22/25 01:36 86 88 L 01/22/25 01:18 88 16 91 01/22/25 00:36 82 92 01/22/25 00:30 120/61 01/22/25 00:30 120/61 01/22/25 00:09 84 13 91 01/22/25 00:00 101/55 L 01/22/25 00:00 101/55 L 01/22/25 00:00 85 20 93 01/21/25 23:52 146/75 H 01/21/25 23:52 146/75 H 01/21/25 23:48 86 16 92 01/21/25 23:48 88 01/21/25 23:36 84 13 92 01/21/25 23:13 83 20 90 01/21/25 23:06 89 20 86 L 01/21/25 23:01 145/82 H 01/21/25 23:00 83 21 91 01/21/25 22:31 114/68 01/21/25 22:31 114/68 01/21/25 22:30 84 18 88 L 01/21/25 22:09 79 96 01/21/25 22:00 101/57 L 01/21/25 21:57 83 94 O2 Flow Rate FiO2 01/22/25 09:21 35 40 01/22/25 09:02 01/22/25 08:48 01/22/25 08:33 01/22/25 08:31 01/22/25 08:30 40 01/22/25 08:19 01/22/25 08:15 50 01/22/25 08:12 01/22/25 08:09 01/22/25 08:09 01/22/25 08:09 01/22/25 08:09 01/22/25 07:51 01/22/25 07:39 40 01/22/25 07:31 01/22/25 07:31 01/22/25 07:27 01/22/25 07:27 01/22/25 07:01 01/22/25 07:00 01/22/25 06:33 01/22/25 06:30 01/22/25 06:30 01/22/25 06:15 01/22/25 06:06 01/22/25 06:00 01/22/25 06:00 01/22/25 05:57 01/22/25 05:30 01/22/25 05:30 01/22/25 05:30 01/22/25 05:00 01/22/25 05:00 01/22/25 05:00 01/22/25 05:00 01/22/25 04:30 01/22/25 04:18 01/22/25 04:00 01/22/25 04:00 01/22/25 04:00 01/22/25 04:00 01/22/25 04:00 01/22/25 03:35 01/22/25 03:35 01/22/25 03:33 01/22/25 03:30 01/22/25 03:03 01/22/25 03:00 01/22/25 03:00 01/22/25 02:57 01/22/25 02:39 01/22/25 02:26 40 01/22/25 02:03 01/22/25 02:01 01/22/25 01:57 01/22/25 01:36 01/22/25 01:18 01/22/25 00:36 01/22/25 00:30 01/22/25 00:30 01/22/25 00:09 01/22/25 00:00 01/22/25 00:00 01/22/25 00:00 01/21/25 23:52 01/21/25 23:52 01/21/25 23:48 01/21/25 23:48 01/21/25 23:36 01/21/25 23:13 40 01/21/25 23:06 01/21/25 23:01 01/21/25 23:00 01/21/25 22:31 01/21/25 22:31 01/21/25 22:30 01/21/25 22:09 01/21/25 22:00 01/21/25 21:57 PG Care Time/CCT Total # of Minutes Spent Total Time Spent with Patient: Total time spent is greater than 50% in coordination of care (as documented) at patient's floor/unit and/or counseling patient: Coding Level of Care Code 85778 SUB INP/OBS CARE 2/35MIN Diagnoses Respiratory failure J96.90 Gram-positive bacteremia R78.81 Cardiac arrest I46.9 Heart failure with reduced ejection fraction I50.20 Diabetes mellitus E11.9
[2025-01-22] MEDS ORDERED: VANCOMYCIN CONSULT ACTIVE PRN (10:10)
[2025-01-22] MEDS ORDERED: STAT IV Infusion **Titration per Protocol STA (10:14)
[2025-01-22] MEDS: MAGNESIUM SULFATE / D5W 1 GM/100 ML BAG IV SCH (10:35)
[2025-01-22] MEDS: dexMEDEtomidine 200 MCG/50 ML BAG IV SCH (10:50)
[2025-01-22] MEDS: VANCOMYCIN HCL 1,000 MG/270 ML BAG IV SCH (12:20)
[2025-01-23 06:26] LABS: Hematocrit (blood only) 42.5 % (42.0-52.0); Hemoglobin 12.4 g/dl (14.0-18.0); Immature Granulocytes # (auto) 0.02 K/uL (0.01-0.20); Immature Granulocytes % (auto) 0.4 %; Mean Corpuscular Hemoglobin 30.7 pg (25.0-34.0); Mean Corpuscular Volume 105.2 fL (80.0-100.0); Platelet Count 146 K/uL (130-400); RDW Standard Deviation 51.2 fL (36.4-46.3); Red Blood Count 4.04 M/uL (4.70-6.10); White Blood Count 4.60 K/ul (4.8-10.8)
[2025-01-23 07:04] LABS: Anion Gap 4.0 (3-11); Blood Urea Nitrogen 30.0 mg/dl (6-23); Calcium 8.2 mg/dl (8.6-10.3); Carbon Dioxide 38.0 mmol/L (21-32); Chloride 105.0 mmol/L (98-107); Creatinine Clr Calc Pharmacy 105.6 ml/min; Glucose 116.0 mg/dl (70-99(Fasting)); Magnesium 2.0 mg/dl (1.7-2.4); Potassium 4.0 mmol/L (3.5-5.1); Sodium 147.0 mmol/L (136-145)
--- NOTE | 2025-01-23 08:35 | XRay Report ---
EXAM: XR chest 1V portable CLINICAL HISTORY: Respiratory failure. TECHNIQUE: X-ray image of the chest obtained in AP projection. COMPARISON: X-ray dated 01/21/2025 . FINDINGS: Partly visualized left central venous line with tip in the superior vena cava. Pulmonary Parenchyma: Interval progression to moderate right pleural effusion and opacification in right lower zone. Unchanged mild haziness in left lower zone and bilateral parahilar congestion. Heart and Mediastinum: Cardiomegaly. No mediastinal widening or masses. No hilar or mediastinal lymphadenopathy. Bony Thorax: Bony thorax appears intact without fractures or deformities. Soft Tissues: Soft tissues overlying the chest wall are unremarkable. IMPRESSION: 1. Interval worsening of moderate right pleural effusion and opacification in the right lower zone. 2. Unchanged mild haziness in the left lower zone and bilateral parahilar congestion.Cardiomegaly. Overall image differential includes congestive cardiac failure, and the possibility of pulmonary infection needs to be excluded. Clinical correlation is advised. 3. Partly visualized left central venous line with tip in the superior vena cava. Electronically signed by Eugenio Martinez 01-23-2025 08:35 AM
--- NOTE | 2025-01-23 09:14 | Hospitalist Progress Note ---
Date of Service January 23, 2025 Assessment & Plan (1) Respiratory failure: Plan: History of home oxygen 4-6 L use as needed with emphysema Intubated and the setting of cardiac arrest, subsequently extubated 01/19 respiratory acidosis morning of 01/21. Remains on BiPAP, settings No wheezing on bedside exam. -Formoterol, budesonide continued. -con't zosyn/vancomycin for treated of possible aspiration PNA (2) Gram-positive bacteremia: Plan: Continued on Zosyn. Blood cultures 2 sets positive for GPC, PCR positive for staph epi with meca/c resistance. Procalcitonin is elevated. Vancomycin added possibly 2nd to aspiration pneumonia Norepinephrine resumed at 0.05, continued No leukocytosis Repeat blood cultures @ 4872 hours Cortisol is not suppressed -ID consult appreciated (3) Cardiac arrest: Plan: Loss of consciousness, suspected respiratory arrest versus loss of consciousness due to hypoxia Reportedly ROSC obtained in the field after 6 minutes of CPR. EF is normal, no wall motion abnormalities on echo, troponin with minimal elevation 22.733 on admission.Admitting EKG was sinus with first-degree AV block/right bundle branch block. No territorial ST changes seen - Appreciate cardiology input less likely to have a arrhythmia or cardiac arrest as a cause of his presentation - Chest CTA without thoracic aortic dissection or pulmonary emboli; severe emphysema + several nondisplaced acute rib fractures in the setting of CPR TTE: LVEF 60-65%. RV pressure overload. No noted AV/MV abnormality - Cardiology following (4) Heart failure with reduced ejection fraction: Plan: Past history of HFrEF, LVEF normalized on updated echo Entresto held for hypotension Patient reportedly with poor compliance to diuretics. Some leg edema. Admitting CTA with anasarca, right and left pleural effusions, small pericardial effusion Follow-up chest x-rays: Increased right basilar opacity. Suspicious for atelectasis versus developing pneumonia. No overt pulmonary edema Carvedilol continued BNP 1363 (5) Diabetes mellitus: Plan: Continue ICU hyperglycemia protocol Farxiga, metformin held Plan This is a 69-year-old male who presented for cardiac arrest on 01/18. Records requested from patient's PCP (Dr. Zhang Magaña) with 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 Carolina Wills) with [facility] in [place], [place] Admission and Anticipated Discharge Date Admission Date: January 18, 2025 Subjective Pt was unable to be taken off Bipap, desats to 70s on [place]. Review of Systems Review of Systems: CONST: Negative for fever, body aches and chills. HENT: Negative for neck pain/stiffness, headache, congestion, sore throat, swelling. EYES: Negative for discharge/pain or vision changes. RESP: Negative for cough/hemoptysis and shortness of breath. CV: Negative chest pain, difficulty breathing, palpitations. ABD: Negative pain, nausea, vomiting. : Negative increase frequency, dysuria, blood in urine or stool. MUSC: Negative for muscle aches, edema. SKIN: Negative rash, lesions/sores. NEURO: Negative headache, dizziness, weakness. Physical Exam Physical Exam: GENERAL APPEARANCE NAD, activity normal for age, well developed/ well nourished, no cyanosis, pallor, or diaphoresis. EYES lids/conjunctiva normal. EARS/NOSE/THROAT Mucous membranes moist, nares normal, lips/teeth normal uvula midline without oral pharyngeal erythema, exudate or swelling TMs normal bilaterally. No lymphangitis/lymphedema. HEAD/NECK bipap in place RESPIRATORY respiratory effort normal, speaks in full sentences, no tripod position, no accessory muscle use. Lungs clear to auscultation without rhonchi, wheezes, rales CARDIAC Regular rate and rhythm, no edema. ABDOMINAL Soft, ND/NT. No evidence of fluid wave. No pulsatile masses on exam, rebound tenderness, Ng sign or pain over Mcburney's point. MUSCLES/EXTREMITIES No abnormal range of motion, no swelling. SKIN Warm, pink and dry. No rashes, dermatoses, petechiae or lesions. NEUROLOGICAL Speech is clear and appropriate. Normal level of consciousness. Gait and coordination are normal. 5/5 strength in all extremities. PSYCH Normal mood and affect. Judgement/competence is appropriate Results & Data Results & Data Vital Signs (Past 12 Hours) Vital Signs Temp Pulse Pulse Resp BP BP Pulse Ox 01/23/25 07:46 88 20 92 01/23/25 07:43 88 20 92 01/23/25 07:13 36.5 C 94 H 22 153/73 H 94 01/23/25 07:10 78 L 01/23/25 02:50 82 20 91 01/23/25 02:38 36.8 C 82 18 157/90 H 93 01/22/25 22:49 36.7 C 83 18 142/84 H 92 01/22/25 21:30 01/22/25 21:20 80 20 97 01/22/25 21:14 36.6 C 80 18 133/77 97 O2 Del Method O2 Flow Rate FiO2 01/23/25 07:46 50 01/23/25 07:43 BiPAP 50 01/23/25 07:13 BiPAP 50 01/23/25 07:10 Nasal Cannula 6 01/23/25 02:50 50 01/23/25 02:38 BiPAP 01/22/25 22:49 BiPAP 01/22/25 21:30 BiPAP 40 01/22/25 21:20 40 01/22/25 21:14 BiPAP PG Care Time/CCT Total # of Minutes Spent Total Time Spent with Patient: Total time spent is greater than 50% in coordination of care (as documented) at patient's floor/unit and/or counseling patient: Coding Level of Care Code 67465 SUB INP/OBS CARE 2/35MIN Diagnoses Respiratory failure J96.90 Gram-positive bacteremia R78.81 Cardiac arrest I46.9 Heart failure with reduced ejection fraction I50.20 Diabetes mellitus E11.9
--- NOTE | 2025-01-23 10:39 | Infectious Disease Progress Nt ---
Date of Service January 23, 2025 Assessment & Plan (1) Staphylococcus epidermidis bacteremia: (2) Cardiac arrest: (3) LALO (acute kidney injury): (4) Acute hypotension: (5) Diabetes mellitus: Plan 69yo M with h/o T2DM, CHF, severe emphysema on home 4-5L home O2 prn, HTN, HLD who presented on 01/18 after a cardiac arrest. Had 6min of CPR. He did have CONN x 1wk. In the ER, he was afebrile, hypotensive, intubated and started on pressors. Initial labs with WBC 4.56, Cr 1.40, LFT wnl. Lactate 2.2. Elevated troponin. UA 0-5 WBC. MRSA screen neg. CTA chest with cardiomegaly, rib fractures, small right and trace left pleural effusions with subpleural opacities. LE doppler neg for DVT. TTE without valvular disease. Extubated and off pressors 01/19. However, pressors were reinitiated on 01/21, line changed. Tm 37.8. PCT 0.86>1.98. CXR with opacity in R lung base noted 01/19. LUE doppler with superficial occlusive thrombosis. BCx also noted to have Staph epidermidis. He is getting vanc/zosyn. Off pressors since 01/21. ID consulted 01/22. Currently off bipap, and on 6L O2. CXR with interval worsening of moderate right pleural effusion and opacification in right lower zone. Staph epi is oxacillin sensitive, which is discordant from BCID. Discussed with micro and ID pharmacy, micro will run sensi on the other set as well. Will continue vancomycin for now. Difficult to determine if this is contaminant since only aerobic bottles were run from 01/20 BCX and repeat cx were after receiving vancomycin (per pharmacy, 2-3hr before collection). Will treat as bacteremia, sources ?line vs PNA. Will also include coverage for possible aspiration. I did discuss with patient/ and he doesnt have any prior antibiotic exposures/recent hospitalizations. He isnt bringing up any sputum. CXR does have some worsening, though clinically he is now on nasal canula. I would like to de-escalate zosyn since he doesnt have much prior abx exposure and he did have right sided findings on initial imaging. # Staph epidermidis bacteremia # Hypoxia now on NC # RLL opacity - ?aspiration # Cardiac arrest # T2DM - f/u blood cx from 01/20 and 01/21 (susceptibilities being run on 2nd set from 01/20) - sputum cx if hes able to produce sputum - continue on vancomycin pharmacy dosed protocol - [place] changed zosyn to Unasyn 3g IV q6h Will continue to follow. If questions or concerns, contact via [employer] or Infectious Disease Call Center . Frieda Clifton MD [facility], Division of Infectious Diseases Admission and Anticipated Discharge Date Admission Date: January 18, 2025 Subjective Subsequent visit was provided via telemedicine using two-way real-time interactive telecommunication between the patient and the telemedicine provider. For the duration of the visit, the provider was performing the assessment from a different facility than the patient. This includesuse of bluetooth stethoscope forauscultationperformed by the telepresenter that the telemedicine provider can hear if described in the physical exam. Product Support Specialist contact information: Please call ID Connect Call Center [phone]. (Phone Number For Physician Use Only) After establishing a telemedicine visit, patient was: Patient was verified with two unique identifiers, Patient/authorized rep acknowledged consent and understanding and Gave permission to continue telehealth session Time Spent with Patient: Subsequent => 55 min Patient says he has cough with sputum production, has some shortness of breath but not currently. Denies any chest or abdominal pain, no back pain, no swelling/pain in joints. No hardware. No prior exposures to antibiotics, no recent infections, no recent hospitalizaitons. Physical Exam Physical Exam: General: awake, alert, no acute distress HEENT: mmm Lungs: diminished breath sounds Heart: nl heart sounds Abdomen: soft, nontender Back: no spinal tenderness Ext: no LE edema, no joint swelling/erythema Skin: no rash Neuro: moving all extremities Results & Data Vital Signs (Past 12 Hours) Vital Signs Temp Pulse Pulse Resp BP BP Pulse Ox 01/23/25 07:46 88 20 92 01/23/25 07:43 88 20 92 01/23/25 07:13 36.5 C 94 H 22 153/73 H 94 01/23/25 07:10 78 L 01/23/25 02:50 82 20 91 01/23/25 02:38 36.8 C 82 18 157/90 H 93 01/22/25 22:49 36.7 C 83 18 142/84 H 92 O2 Del Method O2 Flow Rate FiO2 01/23/25 07:46 50 01/23/25 07:43 BiPAP 50 01/23/25 07:13 BiPAP 50 01/23/25 07:10 Nasal Cannula 6 01/23/25 02:50 50 01/23/25 02:38 BiPAP 01/22/25 22:49 BiPAP Laboratory Results Labs reviewed. Diagnostic Findings Imaging reviewed.
[2025-01-23] MEDS: VANCOMYCIN LEVEL ONE (12:49)
[2025-01-23] MEDS: AMPICILLIN/SULBACTAM SOD 3,000 MG/100 ML BAG IV SCH (13:00)
[2025-01-23] MEDS: VANCOMYCIN HCL 1,250 MG in SODIUM CHLORIDE 0.9% 250 ML IV SCH (13:00)
--- NOTE | 2025-01-23 14:30 | Pharmacy Report ---
Pharmacy PK ABX Note - Date of Service January 23, 2025 - Assessment and Plan Assessment 01/23 * Random vancomycin level this AM was ~11.7 mcg/ml. Blood cultures with staph epi oxacillin sensitive, however BCID2 panel suggesting otherwise. ID consulted and requested micro to run sensitivities on other set of cultures as well. Plan to continue vancomycin for now, will increase dosing slightly to maintain AUC/BORA 400-600. ID changing to unasyn from zosyn for continued aspiration coverage. 01/21 * 69 year old M receiving vancomycin/zosyn for treatment of possible pneumonia/MRSE bacteremia. Pertinent microbiologic data includes: Blood cultures 2/2 aerobic bottles with GPC, Methicillin resistant Staph Epidermidis identified on biofire. Procal elevated. Restarted on pressors. Low grade fevers. Plan Vancomycin * 1250 mg iv q 12 hours Pharmacy will continue to follow and will adjust dose/frequency as necessary. Thank you. Pharmacy has transitioned to AUC monitoring for vancomycin. AUC/BORA is the preferred PK/PD target and is associated with decreased risk of nephrotoxicity compared to traditional trough targets.
[2025-01-24] MEDS: DEXTROSE 50% 50 ML SYRINGE IV PRN (00:44)
[2025-01-24] MEDS: DEXTROSE 50% 50 ML SYRINGE IV ONE (00:48)
[2025-01-24] MEDS ORDERED: GLUCAGON FOR INJ 1 MG VIAL SQ PRN (01:00)
[2025-01-24] MEDS ORDERED: GLUCOSE 40% GEL 15 GM TUBE PO PRN (01:00)
[2025-01-24] MEDS ORDERED: CARBOHYDRATES FOR HYPOGLYCEMIA PO PRN (01:00)
[2025-01-24] MEDS ORDERED: DEXTROSE 50% 50 ML SYRINGE IV PRN (01:00)
[2025-01-24] MEDS ORDERED: GLUCOSE 10 TAB/TUBE PO PRN (01:00)
[2025-01-24] MEDS ORDERED: Nursing to Pharmacy Communication SCH (01:30)
[2025-01-24 07:47] LABS: Anion Gap 1 (3-11); Blood Urea Nitrogen 22 mg/dl (6-23); Calcium 8.0 mg/dl (8.6-10.3); Carbon Dioxide 41 mmol/L (21-32); Chloride 106 mmol/L (98-107); Creatinine Clr Calc Pharmacy 130.2 ml/min; Glucose 92 mg/dl (70-99(Fasting)); Magnesium 2.0 mg/dl (1.7-2.4); Sodium 148 mmol/L (136-145)
[2025-01-24 08:01] LABS: Hematocrit (blood only) 41.5 % (42.0-52.0); Hemoglobin 11.8 g/dl (14.0-18.0); Mean Corpuscular Hemoglobin 30.4 pg (25.0-34.0); Mean Corpuscular Volume 107.0 fL (80.0-100.0); Platelet Count 133 K/uL (130-400); RDW Standard Deviation 52.3 fL (36.4-46.3); Red Blood Count 3.88 M/uL (4.70-6.10); White Blood Count 3.27 K/ul (4.8-10.8)
[2025-01-24 09:01] LABS: Immature Granulocytes # (auto) 0.01 K/uL (0.01-0.20); Immature Granulocytes % (auto) 0.3 %; RBC Morphology Unremarkable
--- NOTE | 2025-01-24 10:35 | Hospitalist Progress Note ---
Date of Service January 24, 2025 Assessment & Plan (1) Respiratory failure: Plan: History of home oxygen 4-6 L use as needed with emphysema Intubated and the setting of cardiac arrest, subsequently extubated 01/19 respiratory acidosis morning of 01/21. Remains on BiPAP, settings No wheezing on bedside exam. -Formoterol, budesonide continued. -con't zosyn/vancomycin for treated of possible aspiration PNA -f/u ABG today 01/24 (2) Gram-positive bacteremia: Plan: Continued on Zosyn. Blood cultures 2 sets positive for GPC, PCR positive for staph epi with meca/c resistance. Procalcitonin is elevated. Vancomycin added possibly 2nd to aspiration pneumonia Norepinephrine resumed at 0.05, continued No leukocytosis Repeat blood cultures @ 4872 hours Cortisol is not suppressed -ID consult appreciated (3) Cardiac arrest: Plan: Loss of consciousness, suspected respiratory arrest versus loss of consciousness due to hypoxia Reportedly ROSC obtained in the field after 6 minutes of CPR. EF is normal, no wall motion abnormalities on echo, troponin with minimal elevation 22.733 on admission.Admitting EKG was sinus with first-degree AV block/right bundle branch block. No territorial ST changes seen - Appreciate cardiology input less likely to have a arrhythmia or cardiac arrest as a cause of his presentation - Chest CTA without thoracic aortic dissection or pulmonary emboli; severe emphysema + several nondisplaced acute rib fractures in the setting of CPR TTE: LVEF 60-65%. RV pressure overload. No noted AV/MV abnormality - Cardiology following (4) Heart failure with reduced ejection fraction: Plan: Past history of HFrEF, LVEF normalized on updated echo Entresto held for hypotension Patient reportedly with poor compliance to diuretics. Some leg edema. Admitting CTA with anasarca, right and left pleural effusions, small pericardial effusion Follow-up chest x-rays: Increased right basilar opacity. Suspicious for atelectasis versus developing pneumonia. No overt pulmonary edema Carvedilol continued BNP 1363 (5) Diabetes mellitus: Plan: Continue ICU hyperglycemia protocol Farxiga, metformin held Plan This is a 69-year-old male who presented for cardiac arrest on 01/18. Records requested from patient's PCP (Dr. 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 Carolina Wills) with [facility] in [place], [place] Admission and Anticipated Discharge Date Admission Date: January 18, 2025 Subjective Pt lethargic this am, only responding to painful stimuli. On bipap. Review of Systems Review of Systems: CONST: Negative for fever, body aches and chills. HENT: Negative for neck pain/stiffness, headache, congestion, sore throat, swelling. EYES: Negative for discharge/pain or vision changes. RESP: Negative for cough/hemoptysis and shortness of breath. CV: Negative chest pain, difficulty breathing, palpitations. ABD: Negative pain, nausea, vomiting. : Negative increase frequency, dysuria, blood in urine or stool. MUSC: Negative for muscle aches, edema. SKIN: Negative rash, lesions/sores. NEURO: Negative headache, dizziness, weakness. Physical Exam Physical Exam: GENERAL APPEARANCE NAD, activity normal for age, well developed/ well nourished, no cyanosis, pallor, or diaphoresis. EYES lids/conjunctiva normal. EARS/NOSE/THROAT Mucous membranes moist, nares normal, lips/teeth normal uvula midline without oral pharyngeal erythema, exudate or swelling TMs normal bilaterally. No lymphangitis/lymphedema. HEAD/NECK bipap in place RESPIRATORY respiratory effort normal, speaks in full sentences, no tripod position, no accessory muscle use. Lungs clear to auscultation without rhonchi, wheezes, rales CARDIAC Regular rate and rhythm, no edema. ABDOMINAL Soft, ND/NT. No evidence of fluid wave. No pulsatile masses on exam, rebound tenderness, Ng sign or pain over Mcburney's point. MUSCLES/EXTREMITIES No abnormal range of motion, no swelling. SKIN Warm, pink and dry. No rashes, dermatoses, petechiae or lesions. NEUROLOGICAL Speech is clear and appropriate. Normal level of consciousness. Gait and coordination are normal. 5/5 strength in all extremities. PSYCH Normal mood and affect. Judgement/competence is appropriate Results & Data Results & Data Vital Signs (Past 12 Hours) Vital Signs Temp Pulse Pulse Pulse Resp BP Pulse Ox 01/24/25 09:00 01/24/25 08:21 71 21 175/77 H 94 01/24/25 07:11 76 20 94 01/24/25 07:11 75 20 97 01/24/25 03:16 90 27 H 94 01/24/25 00:31 36.8 C 82 17 122/71 94 01/23/25 23:19 77 20 94 O2 Del Method FiO2 01/24/25 09:00 BiPAP 01/24/25 08:21 BiPAP 01/24/25 07:11 50 01/24/25 07:11 BiPAP 50 01/24/25 03:16 50 01/24/25 00:31 BiPAP 50 01/23/25 23:19 50 PG Care Time/CCT Total # of Minutes Spent Total Time Spent with Patient: Total time spent is greater than 50% in coordination of care (as documented) at patient's floor/unit and/or counseling patient: Coding Level of Care Code 18588 SUB INP/OBS CARE 2/35MIN Diagnoses Respiratory failure J96.90 Gram-positive bacteremia R78.81 Cardiac arrest I46.9 Heart failure with reduced ejection fraction I50.20 Diabetes mellitus E11.9
[2025-01-24 10:58] LABS: iSTAT Art Bld Gas Base Excess 14.0 meg/L (-9-1.8)
[2025-01-24] MEDS ORDERED: METOPROLOL TARTRATE 1 MG/ML VIAL IV SCH (12:00)
[2025-01-24] MEDS ORDERED: PHARMACY GLYCEMIC MGMT CONSULT PRN (17:03)
[2025-01-24] MEDS: INSULIN ASPART PER UNIT CHARGE SC SCH (18:10)
[2025-01-24 18:54] LABS: Cdiff Toxin B Gene (2yr or >) Negative Cdiff Gene (Neg)
[2025-01-25 09:17] LABS: Anion Gap 1.0 (3-11); Blood Urea Nitrogen 18.0 mg/dl (6-23); Calcium 8.4 mg/dl (8.6-10.3); Carbon Dioxide 42.0 mmol/L (21-32); Chloride 106.0 mmol/L (98-107); Creatinine Clr Calc Pharmacy 131.6 ml/min; Glucose 110.0 mg/dl (70-99(Fasting)); Magnesium 1.8 mg/dl (1.7-2.4); Potassium 4.1 mmol/L (3.5-5.1); Sodium 149.0 mmol/L (136-145)
[2025-01-25] MEDS: SACCHAROMYCES BOULARDII 250 MG CAP PO SCH (09:35)
[2025-01-25] MEDS: PSYLLIUM HUSK 4GM PACKET PO SCH (09:35)
[2025-01-25 09:52] LABS: Hemoglobin A1C 7.2 % (4.5-5.6)
--- NOTE | 2025-01-25 10:53 | Hospitalist Progress Note ---
Date of Service January 25, 2025 Assessment & Plan (1) Respiratory failure: Plan: History of home oxygen 4-6 L use as needed with emphysema Intubated and the setting of cardiac arrest, subsequently extubated 01/19 respiratory acidosis morning of 01/21. Remains on BiPAP, settings No wheezing on bedside exam. -Formoterol, budesonide continued. -con't zosyn/vancomycin for treated of possible aspiration PNA -pt on 6LNC doing well today (2) Gram-positive bacteremia: Plan: Continued on Zosyn. Blood cultures 2 sets positive for GPC, PCR positive for staph epi with meca/c resistance. Procalcitonin is elevated. Vancomycin added possibly 2nd to aspiration pneumonia Norepinephrine resumed at 0.05, continued No leukocytosis Repeat blood cultures @ 4872 hours Cortisol is not suppressed -ID consult appreciated (3) Cardiac arrest: Plan: Loss of consciousness, suspected respiratory arrest versus loss of consciousness due to hypoxia Reportedly ROSC obtained in the field after 6 minutes of CPR. EF is normal, no wall motion abnormalities on echo, troponin with minimal elevation 22.733 on admission.Admitting EKG was sinus with first-degree AV block/right bundle branch block. No territorial ST changes seen - Appreciate cardiology input less likely to have a arrhythmia or cardiac arrest as a cause of his presentation - Chest CTA without thoracic aortic dissection or pulmonary emboli; severe emphysema + several nondisplaced acute rib fractures in the setting of CPR TTE: LVEF 60-65%. RV pressure overload. No noted AV/MV abnormality - Cardiology following (4) Heart failure with reduced ejection fraction: Plan: Past history of HFrEF, LVEF normalized on updated echo Entresto held for hypotension Patient reportedly with poor compliance to diuretics. Some leg edema. Admitting CTA with anasarca, right and left pleural effusions, small pericardial effusion Follow-up chest x-rays: Increased right basilar opacity. Suspicious for atelectasis versus developing pneumonia. No overt pulmonary edema Carvedilol continued BNP 1363 (5) Diabetes mellitus: Plan: Continue ICU hyperglycemia protocol Farxiga, metformin held Plan This is a 69-year-old male who presented for cardiac arrest on 01/18. Records requested from patient's PCP (Dr. Zhang Magaña) with 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 Carolina Wills) with [facility] in [place], [place] Admission and Anticipated Discharge Date Admission Date: January 18, 2025 Subjective No events overnight. Pt awake and responsive this am. Review of Systems Review of Systems: CONST: Negative for fever, body aches and chills. HENT: Negative for neck pain/stiffness, headache, congestion, sore throat, swelling. EYES: Negative for discharge/pain or vision changes. RESP: Negative for cough/hemoptysis and shortness of breath. CV: Negative chest pain, difficulty breathing, palpitations. ABD: Negative pain, nausea, vomiting. : Negative increase frequency, dysuria, blood in urine or stool. MUSC: Negative for muscle aches, edema. SKIN: Negative rash, lesions/sores. NEURO: Negative headache, dizziness, weakness. Physical Exam 2 Physical Exam: GENERAL APPEARANCE NAD, activity normal for age, well developed/ well nourished, no cyanosis, pallor, or diaphoresis. EYES lids/conjunctiva normal. EARS/NOSE/THROAT Mucous membranes moist, nares normal, lips/teeth normal uvula midline without oral pharyngeal erythema, exudate or swelling TMs normal bilaterally. No lymphangitis/lymphedema. HEAD/NECK bipap in place RESPIRATORY respiratory effort normal, speaks in full sentences, no tripod position, no accessory muscle use. Lungs clear to auscultation without rhonchi, wheezes, rales CARDIAC Regular rate and rhythm, no edema. ABDOMINAL Soft, ND/NT. No evidence of fluid wave. No pulsatile masses on exam, rebound tenderness, Ng sign or pain over Mcburney's point. MUSCLES/EXTREMITIES No abnormal range of motion, no swelling. SKIN Warm, pink and dry. No rashes, dermatoses, petechiae or lesions. NEUROLOGICAL Speech is clear and appropriate. Normal level of consciousness. Gait and coordination are normal. 5/5 strength in all extremities. PSYCH Normal mood and affect. Judgement/competence is appropriate Results & Data Results & Data Vital Signs (Past 12 Hours) Vital Signs Temp Pulse Pulse Resp BP Pulse Ox O2 Del Method 01/25/25 09:37 Nasal Cannula 01/25/25 08:04 96 Nasal Cannula 01/25/25 07:46 36.6 C 93 H 19 166/78 H 94 Nasal Cannula 01/25/25 07:41 61 01/25/25 06:52 67 20 94 06/27/25 06:52 67 20 94 BiPAP 01/25/25 03:44 36.4 C L 73 21 166/82 H 97 Room Air 01/25/25 03:04 78 20 96 01/25/25 00:00 91 H 01/24/25 23:24 36.5 C 80 20 147/80 H 98 BiPAP O2 Flow Rate FiO2 01/25/25 09:37 5 01/25/25 08:04 6 01/25/25 07:46 6 01/25/25 07:41 01/25/25 06:52 70 01/25/25 06:52 70 01/25/25 03:44 01/25/25 03:04 50 01/25/25 00:00 01/24/25 23:24 PG Care Time/CCT Total # of Minutes Spent Total Time Spent with Patient: Total time spent is greater than 50% in coordination of care (as documented) at patient's floor/unit and/or counseling patient: Coding Level of Care Code 51951 SUB INP/OBS CARE 2/35MIN Diagnoses Respiratory failure J96.90 Gram-positive bacteremia R78.81 Cardiac arrest I46.9 Heart failure with reduced ejection fraction I50.20 Diabetes mellitus E11.9
[2025-01-25] MEDS: VANCOMYCIN HCL 1,750 MG in SODIUM CHLORIDE 0.9% 500 ML IV SCH (12:23)
--- NOTE | 2025-01-25 12:49 | Infectious Disease Progress Nt ---
Date of Service January 25, 2025 Assessment & Plan (1) Staphylococcus epidermidis bacteremia: (2) Cardiac arrest: (3) LALO (acute kidney injury): (4) Acute hypotension: (5) Diabetes mellitus: Plan ID Problem List: # Staph epidermidis bacteremia # RLL opacity, possible aspiration pneumonia # Acute on chronic hypoxemic respiratory failure, improving # Cardiac arrest # T2DM Impression: Armin Kay is a 69yo M with h/o T2DM, CHF, severe emphysema on home 4-5L home O2 prn, HTN, HLD who presented on 01/18 after a cardiac arrest. Had 6min of CPR. He did have CONN x 1wk. In the ER, he was afebrile, hypotensive, intubated and st arted on pressors. Initial labs with WBC 4.56, Cr 1.40, LFT wnl. Lactate 2.2. Elevated troponin. UA 0-5 WBC. MRSA screen neg. CTA chest with cardiomegaly, rib fractures, small right and trace left pleural effusions with subpleural opacities. LE doppler neg for DVT. TTE without valvular disease. Extubated and off pressors 01/19. However, pressors were reinitiated on 01/21, line changed. Tmax 37.8. PCT 0.86>1.98. CXR with opacity in R lung base noted 01/19. LUE doppler with superficial occlusive thrombosis. BCx also noted to have Staph epidermidis. He is getting vanc/zosyn. Off pressors since 01/21. ID consulted 01/22. Currently off bipap, and on 6L O2. CXR with interval worsening of moderate right pleural effusion and opacification in right lower zone. Discussion Pt found to have BCx + Staph epi in 2/2 sets. Interestingly, there are two types of Staph epi in each set (all sensitive to oxacillin), and both types in the first set have the same susceptibility profile as each other (R-erythromycin otherwise carlton-sensitive); both types in the second set also have the same susceptibility profile as each other (carlton-sensitive). Even more interestingly, the BCID was positive for mec AC resistance which is discordant from the susceptibility profiles. Overall, the fact that there are at least two types of Staph epi (or possibly even 4 types given that the two bottles have different sensitivity profiles) seems more crys to contamination. However, difficult to determine if this is truly a contaminant since only aerobic bottles were run from 01/20 BCX and repeat cx were after receiving vancomycin (per pharmacy, 2-3hr before collection). Will treat as uncomplicated Staph epi bacteremia, sources ?line vs PNA. TTE without valvular disease. Will also include coverage for possible aspiration pna as below. Given the sensitivity profiles, can stop vancomycin. However, out of caution, the patient has already received ~4 days of IV vancomycin regardless. Note, the patient without recent prior abx exposures or hospitalizations. The patient was not producing sputum. The patient is reported to be improved and close to baseline on 01/25. He is on 4-5L of home O2. CXR suggested possible aspiration pna. Can continue Unasyn while inpatient. Upon discharge, can change to Augmentin to complete a course to cover for both aspiration pna and to continue treatment for Staph epi bacteremia. Recommendations: - Continue Unasyn 3g IV q6h while inpatient. Upon discharge, can change to Augmentin 875 mg PO BID to complete a 10-day course (01/20/25 01/29/25) - F/u blood cx 01/21 until finalized to ensure clearance - Ensure close follow-up with PCP Plan discussed with primary team. Thank you for letting ID participate in the care of this patient. ID will sign off at this time. If questions, [facility] at [phone]. Valerie Gross MD, MHS Infectious Diseases [facility]/ID Connect ID Connect direct line: [phone] Admission and Anticipated Discharge Date Admission Date: January 18, 2025 Subjective This patient recommendation is based on a telemedicine consult request which was completed asynchronously through chart review and information provided by the primary physician. The patient was not seen or examined today. The evaluation is consultative in nature and all patient care and treatment decisions can either be accepted or rejected by the patient's primary hospital-based treating physician using their own independent medical judgment for their patient. Time Spent Reviewing Chart: 31+ minutes - Afebrile, WBC 3.27 - On 6L nc - Per Dr. Mitchell, pt is doing well and near baseline Results & Data Vital Signs (Past 12 Hours) Vital Signs Temp Pulse Pulse Resp BP Pulse Ox O2 Del Method 01/25/25 10:52 36.8 C 91 H 21 160/93 H 98 Nasal Cannula 01/25/25 09:37 Nasal Cannula 01/25/25 08:04 96 Nasal Cannula 01/25/25 07:46 36.6 C 93 H 19 166/78 H 94 Nasal Cannula 01/25/25 07:41 61 01/25/25 06:52 67 20 94 01/25/25 06:52 67 20 94 BiPAP 01/25/25 03:44 36.4 C L 73 21 166/82 H 97 Room Air 01/25/25 03:04 78 20 96 O2 Flow Rate FiO2 01/25/25 10:52 6 01/25/25 09:37 5 01/25/25 08:04 6 01/25/25 07:46 6 01/25/25 07:41 01/25/25 06:52 70 01/25/25 06:52 70 01/25/25 03:44 01/25/25 03:04 50 Diagnostic Findings Diagnostics: 01/23 CXR 1. Interval worsening of moderate right pleural effusion and opacification in the right lower zone. 2. Unchanged mild haziness in the left lower zone and bilateral parahilar congestion.Cardiomegaly. Overall image differential includes congestive cardiac failure, and the possibility of pulmonary infection needs to be excluded. Clinical correlation is advised. 3. Partly visualized left central venous line with tip in the superior vena cava. Micro Data: 01/20 BCX: Staph epi (MSSE) in 2 of 2 bottles (bc anaerobic bottles were never run due to insufficient sample). In 1st set, two types of MSSE with same susceptibility profile as each other (R-erythromycin; otherwise S including S- oxacillin/vanc/Bactrim/tetra/dapto). In second set, another two types of MSSE also with same susceptibility profile as each other (carlton-S) 01/21 BCX: ngtd 01/21 UCx: low counts mixed skin microbiota Antibiotic Summary: Zosyn 01/20->Unasyn 01/23- present Vanc 01/21- 01/24 other notable meds Vasopressor off 01/19 Resumed levophed 01/21, then off
--- NOTE | 2025-01-25 14:01 | Pharmacy Report ---
Pharmacy Glycemic Short Note 2 - Date of Service January 25, 2025 - Glycemic Short BSG Results (Last 24 hours): 01/24/25 01/24/25 01/25/25 16:24 20:20 07:31 Glucose POC Glucose 136 H 129 H 98 01/25/25 01/25/25 08:32 11:33 Glucose 110 H POC Glucose 127 H OUTPATIENT ANTIDIABETIC REGIMEN: * metformin * A1c 7.2 01/25/25 ASSESSMENT: * Patient admitted following cardiac arrest 01/18/25. * Patient was traveling home from [place]. Type II diabetes reportedly on metformin. * Blood sugars have been mostly controlled, consulted after episode of hypoglycemia on 01/24, although this was overnight and mild (66 mg/dl) * Will hold basal for now, fasting this AM 98 mg/dL * Loose novolog coverage for now- monitor trend PLAN FOR INPATIENT GLYCEMIC CONTROL: * Hold outpatient oral diabetes medications * Basal insulin * hold * Bolus insulin * NovoLog per scale ACHS or Q6hrs while NPO * Goal Range: Low 120 mg/dL - High 160 mg/dL * Correction Factor: 40 mg/dL/unit * Nutritional / Prandial insulin per carb ratio of 1 unit per 20 grams CHO consumed
[2025-01-25] MEDS ORDERED: ALBUT/IPRATROP 3MG/0.5MG NEB 3 ML VIAL NEB PRN (14:50)
[2025-01-25 17:16] LABS: iSTAT Art Bld Gas Base Excess 15.0 meg/L (-9-1.8)
[2025-01-25 18:22] LABS: Base Excess VBG 13.5 mEq/L; HCO3 VBG 46 mmol/L; Oxygen Saturation VBG < 60.0 %; PCO2 VBG 104 mmHg (38-50); PO2 VBG 29 mmHg; pH VBG 7.25 (7.36-7.41)
[2025-01-25] MEDS: VALSARTAN/SACUBITRIL 51/49 MG TAB PO SCH (21:40)
--- NOTE | 2025-01-26 07:01 | Electrocardiogram Report ---
Test Reason : Blood Pressure : */* mmHG Vent. Rate : 89 BPM Atrial Rate : 89 BPM P-R Int : 192 ms QRS Dur : 134 ms QT Int : 390 ms P-R-T Axes : 30 261 52 degrees QTcB Int : 474 ms Sinus rhythm with Premature supraventricular complexes and with occasional Premature ventricular comp lexes Right bundle branch block Abnormal ECG When compared with ECG of 18-Jan-2025 15:09, Vent. rate has increased by 34 bpm Confirmed by Pk Baptiste ([id number]) on 01/26/2025 7:01:18 AM Referred By: REFERRED SELF Confirmed By: Pk Baptiste
[2025-01-26 08:37] LABS: Hematocrit (blood only) 39.9 % (42.0-52.0); Hemoglobin 11.1 g/dl (14.0-18.0); Mean Corpuscular Hemoglobin 30.2 pg (25.0-34.0); Mean Corpuscular Volume 108.4 fL (80.0-100.0); Platelet Count 152 K/uL (130-400); RDW Standard Deviation 53.1 fL (36.4-46.3); Red Blood Count 3.68 M/uL (4.70-6.10); White Blood Count 3.45 K/ul (4.8-10.8)
[2025-01-26 08:44] LABS: Anion Gap 2.0 (3-11); Blood Urea Nitrogen 14.0 mg/dl (6-23); Calcium 7.9 mg/dl (8.6-10.3); Carbon Dioxide 41.0 mmol/L (21-32); Chloride 105.0 mmol/L (98-107); Creatinine Clr Calc Pharmacy 140.1 ml/min; Glucose 90.0 mg/dl (70-99(Fasting)); Potassium 4.0 mmol/L (3.5-5.1); Sodium 148.0 mmol/L (136-145)
--- NOTE | 2025-01-26 10:32 | Hospitalist Progress Note ---
Date of Service January 26, 2025 Assessment & Plan (1) Respiratory failure: Plan: History of home oxygen 4-6 L use as needed with emphysema Intubated and the setting of cardiac arrest, subsequently extubated 01/19 respiratory acidosis morning of 01/21. Remains on BiPAP, settings No wheezing on bedside exam. -Formoterol, budesonide continued. -con't Unasyn for treated of possible aspiration PNA -pt on 6LNC doing well today -con't bipap with naps and QHS (2) Gram-positive bacteremia: Plan: Continued on unasyn. Blood cultures 2 sets positive for GPC, PCR positive for staph epi with meca/c resistance. Procalcitonin is elevated. Vancomycin added possibly 2nd to aspiration pneumonia Norepinephrine resumed at 0.05, continued No leukocytosis Repeat blood cultures @ 4872 hours Cortisol is not suppressed -ID consult appreciated (3) Cardiac arrest: Plan: Loss of consciousness, suspected respiratory arrest versus loss of consciousness due to hypoxia Reportedly ROSC obtained in the field after 6 minutes of CPR. EF is normal, no wall motion abnormalities on echo, troponin with minimal elevation 22.733 on admission.Admitting EKG was sinus with first-degree AV block/right bundle branch block. No territorial ST changes seen - Appreciate cardiology input less likely to have a arrhythmia or cardiac arrest as a cause of his presentation - Chest CTA without thoracic aortic dissection or pulmonary emboli; severe emphysema + several nondisplaced acute rib fractures in the setting of CPR TTE: LVEF 60-65%. RV pressure overload. No noted AV/MV abnormality - Cardiology following (4) Heart failure with reduced ejection fraction: Plan: Past history of HFrEF, LVEF normalized on updated echo Patient reportedly with poor compliance to diuretics. Some leg edema. Admitting CTA with anasarca, right and left pleural effusions, small pericardial effusion Follow-up chest x-rays: Increased right basilar opacity. Suspicious for atelectasis versus developing pneumonia. No overt pulmonary edema Carvedilol continued BNP 1363 (5) Diabetes mellitus: Plan: Continue ICU hyperglycemia protocol Farxiga, metformin held Plan This is a 69-year-old male who presented for cardiac arrest on 01/18. Records requested from patient's PCP (Dr. Zhang Magaña) with [facility] in [place], [place] Records requested from patient's student (Dr. Carolina Wills) with [facility] in [place], [place] Admission and Anticipated Discharge Date Admission Date: January 18, 2025 Subjective Pt resting comfortably at baseline. Tolerated bipap overnight. Review of Systems Review of Systems: CONST: Negative for fever, body aches and chills. HENT: Negative for neck pain/stiffness, headache, congestion, sore throat, swelling. EYES: Negative for discharge/pain or vision changes. RESP: Negative for cough/hemoptysis and shortness of breath. CV: Negative chest pain, difficulty breathing, palpitations. ABD: Negative pain, nausea, vomiting. : Negative increase frequency, dysuria, blood in urine or stool. MUSC: Negative for muscle aches, edema. SKIN: Negative rash, lesions/sores. NEURO: Negative headache, dizziness, weakness. Physical Exam Physical Exam: GENERAL APPEARANCE NAD, activity normal for age, well developed/ well nourished, no cyanosis, pallor, or diaphoresis. EYES lids/conjunctiva normal. EARS/NOSE/THROAT Mucous membranes moist, nares normal, lips/teeth normal uvula midline without oral pharyngeal erythema, exudate or swelling TMs normal bilaterally. No lymphangitis/lymphedema. HEAD/NECK bipap in place RESPIRATORY respiratory effort normal, speaks in full sentences, no tripod position, no accessory muscle use. Lungs clear to auscultation without rhonchi, wheezes, rales CARDIAC Regular rate and rhythm, no edema. ABDOMINAL Soft, ND/NT. No evidence of fluid wave. No pulsatile masses on exam, rebound tenderness, Ng sign or pain over Mcburney's point. MUSCLES/EXTREMITIES No abnormal range of motion, no swelling. SKIN Warm, pink and dry. No rashes, dermatoses, petechiae or lesions. NEUROLOGICAL Speech is clear and appropriate. Normal level of consciousness. Gait and coordination are normal. 5/5 strength in all extremities. PSYCH Normal mood and affect. Judgement/competence is appropriate Results & Data Results & Data Vital Signs (Past 12 Hours) Vital Signs Temp Pulse Pulse Resp BP Pulse Ox O2 Del Method 01/26/25 08:47 Nasal Cannula, Oxymask, BiPAP 01/26/25 08:00 36.7 C 96 H 20 146/80 H 91 Nasal Cannula 01/26/25 07:21 75 01/26/25 07:14 85 16 95 Oxymask 01/26/25 06:44 94 Oxymask 01/26/25 03:32 36.6 C 76 19 157/70 H 96 BiPAP 01/26/25 03:20 76 01/26/25 02:52 77 20 97 01/25/25 23:44 71 20 97 01/25/25 23:24 36.5 C 75 20 126/68 99 BiPAP O2 Flow Rate FiO2 01/26/25 08:47 01/26/25 08:00 5.0 01/26/25 07:21 01/26/25 07:14 5 01/26/25 06:44 6 01/26/25 03:32 01/26/25 03:20 01/26/25 02:52 40 01/25/25 23:44 50 01/25/25 23:24 PG Care Time/CCT Total # of Minutes Spent Total Time Spent with Patient: Total time spent is greater than 50% in coordination of care (as documented) at patient's floor/unit and/or counseling patient: Coding Level of Care Code 95684 SUB INP/OBS CARE 2/35MIN Diagnoses Respiratory failure J96.90 Gram-positive bacteremia R78.81 Cardiac arrest I46.9 Heart failure with reduced ejection fraction I50.20 Diabetes mellitus E11.9
[2025-01-26] MEDS ORDERED: ACETAMINOPHEN 650 MG SUPP PR PRN (22:42)
[2025-01-26] MEDS: ALUMINUM/MAGNESIUM/SIMETH (MAALOX MAX) 30 ML UDC PO PRN (22:52)
[2025-01-27 07:08] LABS: Hematocrit (blood only) 41.4 % (42.0-52.0); Hemoglobin 11.9 g/dl (14.0-18.0); Mean Corpuscular Hemoglobin 31.0 pg (25.0-34.0); Mean Corpuscular Volume 107.8 fL (80.0-100.0); Platelet Count 170 K/uL (130-400); RDW Standard Deviation 50.8 fL (36.4-46.3); Red Blood Count 3.84 M/uL (4.70-6.10); White Blood Count 3.98 K/ul (4.8-10.8)
[2025-01-27 07:11] LABS: Anion Gap 0.0 (3-11); Blood Urea Nitrogen 14.0 mg/dl (6-23); Calcium 7.8 mg/dl (8.6-10.3); Carbon Dioxide 44.0 mmol/L (21-32); Chloride 102.0 mmol/L (98-107); Creatinine Clr Calc Pharmacy 142.7 ml/min; Glucose 135.0 mg/dl (70-99(Fasting)); Potassium 4.3 mmol/L (3.5-5.1); Sodium 146.0 mmol/L (136-145)
--- NOTE | 2025-01-27 08:38 | XRay Report ---
XR chest 1V portable HISTORY: 69 years-old Male PNA acute shortness of breath with pneumonia COMPARISON: 01/23/2025 TECHNIQUE: AP view of the chest FINDINGS: Cardiac silhouette is enlarged. Pulmonary vascular congestion with interstitial coarsening. Right gre ater than left layering pleural effusions with bibasilar consolidation which has progressed. Bones ar e grossly intact. IMPRESSION: 1. Cardiomegaly with pulmonary edema. 2. Layering pleural effusions with progressive bibasilar consolidation, right greater than left. Find ings may represent atelectasis versus pneumonia. ACT 112: Negative or not required by law. The above report was generated using voice recognition software. It may contain grammatical, syntax o r spelling errors. Electronically signed by: Baljit Valladares M.D. 01/27/2025 8:37 AM
--- NOTE | 2025-01-27 11:22 | Hospitalist Progress Note ---
Date of Service January 27, 2025 Assessment & Plan (1) Respiratory failure: Plan: History of home oxygen 4-6 L use as needed with emphysema Intubated and the setting of cardiac arrest, subsequently extubated 01/19 respiratory acidosis morning of 01/21. Remains on BiPAP, settings No wheezing on bedside exam. -Formoterol, budesonide continued. -con't Unasyn for treated of possible aspiration PNA -con't bipap with naps and QHS - CXR today showing pulmonary edema with pleural effusions - Will give lasix 40mg IV (2) Gram-positive bacteremia: Plan: Continued on unasyn. Blood cultures 2 sets positive for GPC, PCR positive for staph epi with meca/c resistance. Procalcitonin is elevated. Vancomycin added possibly 2nd to aspiration pneumonia Norepinephrine resumed at 0.05, stopped No leukocytosis Repeat blood cultures @ 4872 hours Cortisol is not suppressed -ID consult appreciated (3) Cardiac arrest: Plan: Loss of consciousness, suspected respiratory arrest versus loss of consciousness due to hypoxia Reportedly ROSC obtained in the field after 6 minutes of CPR. EF is normal, no wall motion abnormalities on echo, troponin with minimal elevation 22.733 on admission.Admitting EKG was sinus with first-degree AV block/right bundle branch block. No territorial ST changes seen - Appreciate cardiology input less likely to have a arrhythmia or cardiac arrest as a cause of his presentation - Chest CTA without thoracic aortic dissection or pulmonary emboli; severe emphysema + several nondisplaced acute rib fractures in the setting of CPR TTE: LVEF 60-65%. RV pressure overload. No noted AV/MV abnormality - Cardiology following (4) Heart failure with reduced ejection fraction: Plan: Past history of HFrEF, LVEF normalized on updated echo Patient reportedly with poor compliance to diuretics. Some leg edema. Admitting CTA with anasarca, right and left pleural effusions, small pericardial effusion Follow-up chest x-rays: Increased right basilar opacity. Suspicious for atelectasis versus developing pneumonia. No overt pulmonary edema Carvedilol continued BNP 1363 (5) Diabetes mellitus: Plan: Continue RISS Farxiga, metformin held Plan This is a 69-year-old male who presented for cardiac arrest on 01/18. Records requested from patient's PCP (Dr. Zhang Magaña) with [facility] in [place], [place] Records requested from patient's ict support engineer (Dr. Carolina Wills) with [facility] in [place], [place] Admission and Anticipated Discharge Date Admission Date: January 18, 2025 Subjective No events overnight. Pt on VM at 10L this am, awake and without any complaints. Review of Systems Review of Systems: CONST: Negative for fever, body aches and chills. HENT: Negative for neck pain/stiffness, headache, congestion, sore throat, swelling. EYES: Negative for discharge/pain or vision changes. RESP: Negative for cough/hemoptysis and shortness of breath. CV: Negative chest pain, difficulty breathing, palpitations. ABD: Negative pain, nausea, vomiting. : Negative increase frequency, dysuria, blood in urine or stool. MUSC: Negative for muscle aches, edema. SKIN: Negative rash, lesions/sores. NEURO: Negative headache, dizziness, weakness. Physical Exam Physical Exam: GENERAL APPEARANCE NAD, activity normal for age, well developed/ well nourished, no cyanosis, pallor, or diaphoresis. EYES lids/conjunctiva normal. EARS/NOSE/THROAT Mucous membranes moist, nares normal, lips/teeth normal uvula midline without oral pharyngeal erythema, exudate or swelling TMs normal bilaterally. No lymphangitis/lymphedema. HEAD/NECK bipap in place RESPIRATORY respiratory effort normal, speaks in full sentences, no tripod position, no accessory muscle use. Lungs clear to auscultation without rhonchi, wheezes, rales CARDIAC Regular rate and rhythm, no edema. ABDOMINAL Soft, ND/NT. No evidence of fluid wave. No pulsatile masses on exam, rebound tenderness, Ng sign or pain over Mcburney's point. MUSCLES/EXTREMITIES No abnormal range of motion, no swelling. SKIN Warm, pink and dry. No rashes, dermatoses, petechiae or lesions. NEUROLOGICAL Speech is clear and appropriate. Normal level of consciousness. Gait and coordination are normal. 5/5 strength in all extremities. PSYCH Normal mood and affect. Judgement/competence is appropriate Results & Data Results & Data Vital Signs (Past 12 Hours) Vital Signs Temp Pulse Pulse Resp BP Pulse Ox O2 Del Method 01/27/25 07:23 88 7 L 160/84 H 95 Oxymask 01/27/25 07:20 88 18 96 Oxymask 01/27/25 03:28 87 21 96 01/27/25 03:00 36.5 C 83 20 136/81 98 BiPAP 01/26/25 23:42 37.0 C 94 H 25 H 159/81 H 90 Oxymask O2 Flow Rate FiO2 01/27/25 07:23 01/27/25 07:20 10 01/27/25 03:28 60 01/27/25 03:00 01/26/25 23:42 7 PG Care Time/CCT Total # of Minutes Spent Total Time Spent with Patient: Total time spent is greater than 50% in coordination of care (as documented) at patient's floor/unit and/or counseling patient: Coding Level of Care Code 01898 SUB INP/OBS CARE 2/35MIN Diagnoses Respiratory failure J96.90 Gram-positive bacteremia R78.81 Cardiac arrest I46.9 Heart failure with reduced ejection fraction I50.20 Diabetes mellitus E11.9
[2025-01-27] MEDS: FUROSEMIDE 40 MG/4 ML VIAL IV ONE (11:28)
[2025-01-28 02:02] LABS: Base Excess VBG 15.8 mEq/L; HCO3 VBG 45 mmol/L; Oxygen Saturation VBG 81.0 %; PCO2 VBG 78 mmHg (38-50); PO2 VBG 45 mmHg; pH VBG 7.37 (7.36-7.41)
[2025-01-28 02:31] LABS: Anion Gap 0.0 (3-11); Blood Urea Nitrogen 14.0 mg/dl (6-23); Calcium 7.5 mg/dl (8.6-10.3); Carbon Dioxide 44.0 mmol/L (21-32); Chloride 101.0 mmol/L (98-107); Creatinine Clr Calc Pharmacy 142.7 ml/min; Glucose 103.0 mg/dl (70-99(Fasting)); Potassium 4.2 mmol/L (3.5-5.1); Sodium 145.0 mmol/L (136-145)
[2025-01-28 02:56] LABS: Hematocrit (blood only) 38.4 % (42.0-52.0); Hemoglobin 10.9 g/dl (14.0-18.0); Mean Corpuscular Hemoglobin 30.4 pg (25.0-34.0); Mean Corpuscular Volume 107.0 fL (80.0-100.0); Platelet Count 175 K/uL (130-400); RDW Standard Deviation 50.8 fL (36.4-46.3); Red Blood Count 3.59 M/uL (4.70-6.10); White Blood Count 3.15 K/ul (4.8-10.8)
[2025-01-28] MEDS: FUROSEMIDE 40 MG/4 ML VIAL IV ONE (08:09)
--- NOTE | 2025-01-28 09:02 | Hospitalist Progress Note ---
Date of Service January 28, 2025 Assessment & Plan (1) Respiratory failure: Plan: History of home oxygen 4-6 L use as needed with emphysema Intubated and the setting of cardiac arrest, subsequently extubated 01/19 respiratory acidosis morning of 01/21. Remains on BiPAP, settings No wheezing on bedside exam. -Formoterol, budesonide continued. -con't Unasyn for treated of possible aspiration PNA -con't bipap with naps and QHS - CXR today showing pulmonary edema with pleural effusions - Con't lasix 40mg IV (2) Gram-positive bacteremia: Plan: Continued on unasyn. Blood cultures 2 sets positive for GPC, PCR positive for staph epi with meca/c resistance. Procalcitonin is elevated. Vancomycin added possibly 2nd to aspiration pneumonia Norepinephrine resumed at 0.05, stopped No leukocytosis Repeat blood cultures @ 4872 hours Cortisol is not suppressed -ID consult appreciated (3) Cardiac arrest: Plan: Loss of consciousness, suspected respiratory arrest versus loss of consciousness due to hypoxia Reportedly ROSC obtained in the field after 6 minutes of CPR. EF is normal, no wall motion abnormalities on echo, troponin with minimal elevation 22.733 on admission.Admitting EKG was sinus with first-degree AV block/right bundle branch block. No territorial ST changes seen - Appreciate cardiology input less likely to have a arrhythmia or cardiac arrest as a cause of his presentation - Chest CTA without thoracic aortic dissection or pulmonary emboli; severe emphysema + several nondisplaced acute rib fractures in the setting of CPR TTE: LVEF 60-65%. RV pressure overload. No noted AV/MV abnormality - Cardiology following (4) Heart failure with reduced ejection fraction: Plan: Past history of HFrEF, LVEF normalized on updated echo Patient reportedly with poor compliance to diuretics. Some leg edema. Admitting CTA with anasarca, right and left pleural effusions, small pericardial effusion Follow-up chest x-rays: Increased right basilar opacity. Suspicious for atelectasis versus developing pneumonia. No overt pulmonary edema Carvedilol continued BNP 1363 (5) Diabetes mellitus: Plan: Continue RISS Farxiga, metformin held Plan This is a 69-year-old male who presented for cardiac arrest on 01/18. Records requested from patient's PCP (Dr. Zhang Magaña) with [facility] in [place], [place] Records requested from patient's field tech (Dr. Carolina Wills) with [facility] in [place], [place] Admission and Anticipated Discharge Date Admission Date: January 18, 2025 Subjective Pt had episodes of agitation and confusion last night. This am he feels better, on NC 02. Review of Systems Review of Systems: CONST: Negative for fever, body aches and chills. HENT: Negative for neck pain/stiffness, headache, congestion, sore throat, swelling. EYES: Negative for discharge/pain or vision changes. RESP: Negative for cough/hemoptysis and shortness of breath. CV: Negative chest pain, difficulty breathing, palpitations. ABD: Negative pain, nausea, vomiting. : Negative increase frequency, dysuria, blood in urine or stool. MUSC: Negative for muscle aches, edema. SKIN: Negative rash, lesions/sores. NEURO: Negative headache, dizziness, weakness. Physical Exam Physical Exam: GENERAL APPEARANCE NAD, activity normal for age, well developed/ well nourished, no cyanosis, pallor, or diaphoresis. EYES lids/conjunctiva normal. EARS/NOSE/THROAT Mucous membranes moist, nares normal, lips/teeth normal uvula midline without oral pharyngeal erythema, exudat e or swelling TMs normal bilaterally. No lymphangitis/lymphedema. HEAD/NECK bipap in place RESPIRATORY respiratory effort normal, speaks in full sentences, no tripod position, no accessory muscle use. Lungs clear to auscultation without rhonchi, wheezes, rales CARDIAC Regular rate and rhythm, no edema. ABDOMINAL Soft, ND/NT. No evidence of fluid wave. No pulsatile masses on exam, rebound tenderness, Ng sign or pain over Mcburney's point. MUSCLES/EXTREMITIES No abnormal range of motion, no swelling. SKIN Warm, pink and dry. No rashes, dermatoses, petechiae or lesions. NEUROLOGICAL Speech is clear and appropriate. Normal level of consciousness. Gait and coordination are normal. 5/5 strength in all extremities. PSYCH Normal mood and affect. Judgement/competence is appropriate Results & Data Results & Data Vital Signs (Past 12 Hours) Vital Signs Temp Pulse Pulse Resp BP Pulse Ox O2 Del Method 01/28/25 08:15 90 High Flow Nasal Cannula 01/28/25 08:14 90 High Flow Nasal Cannula 01/28/25 07:53 Nasal Cannula, BiPAP 01/28/25 07:37 84 153/83 H 01/28/25 07:20 36.6 C 81 7 L 187/98 H 96 BiPAP 01/28/25 07:19 76 01/28/25 07:15 75 20 100 BiPAP 01/28/25 07:13 77 20 96 01/28/25 02:36 36.6 C 83 20 143/69 H 95 BiPAP 01/28/25 02:15 77 20 96 01/27/25 23:00 36.7 C 79 12 148/78 H 94 BiPAP 01/27/25 22:42 80 20 98 01/27/25 22:02 79 O2 Flow Rate FiO2 01/28/25 08:15 12 01/28/25 08:14 9 01/28/25 07:53 5 01/28/25 07:37 01/28/25 07:20 01/28/25 07:19 01/28/25 07:15 40 01/28/25 07:13 40 01/28/25 02:36 01/28/25 02:15 50 01/27/25 23:00 01/27/25 22:42 50 01/27/25 22:02 PG Care Time/CCT Total # of Minutes Spent Total Time Spent with Patient: Total time spent is greater than 50% in coordination of care (as documented) at patient's floor/unit and/or counseling patient: Coding Level of Care Code 76755 SUB INP/OBS CARE 2/35MIN Diagnoses Respiratory failure J96.90 Gram-positive bacteremia R78.81 Cardiac arrest I46.9 Heart failure with reduced ejection fraction I50.20 Diabetes mellitus E11.9
--- NOTE | 2025-01-28 11:24 | Pharmacy Report ---
Pharmacy Glycemic Sign Off Nt - Date of Service January 28, 2025 - Assessment & Plan ASSESSMENT: * Pharmacy was consulted by Dr Mitchell on 01/24 for glycemic control and to write orders per [facility] inpatient glycemic control protocol. * Patient has been receiving/requiring 1-7 units of insulin per day for adequate glycemic control * BSGs ranging 83 - 155 mg/dl * Regimen has only required minor adjustments over the past 48hrs to achieve this level of control * Do not anticipate further changes in patient status that would quickly deteriorate glycemic control (i.e. patient to be NPO for upcoming procedure, steroids tapering, starting tube feedings, etc). * Please see recommendations for outpatient antidiabetic regimen below. PLAN FOR INPATIENT GLYCEMIC CONTROL: No changes needed to current regimen. * Continue NovoLog per scale ACHS/Q6hrs while NPO * Goal range = 120 - 160 mg/dl * CF = 40 mg/dl/unit * CR = 1 unit for ever 20 g CHO consumed * Pharmacy is signing off of glycemic consult and will no longer be making adjustments to inpatient regimen. Please feel free to re-consult if needed. Thank you.
[2025-01-29 07:12] LABS: Anion Gap 3.0 (3-11); Blood Urea Nitrogen 14.0 mg/dl (6-23); Calcium 7.9 mg/dl (8.6-10.3); Carbon Dioxide 44.0 mmol/L (21-32); Chloride 98.0 mmol/L (98-107); Creatinine Clr Calc Pharmacy 132.2 ml/min; Glucose 119.0 mg/dl (70-99(Fasting)); Potassium 3.9 mmol/L (3.5-5.1); Sodium 145.0 mmol/L (136-145)
[2025-01-29 07:43] LABS: Hematocrit (blood only) 39.4 % (42.0-52.0); Hemoglobin 11.3 g/dl (14.0-18.0); Mean Corpuscular Hemoglobin 30.2 pg (25.0-34.0); Mean Corpuscular Volume 105.3 fL (80.0-100.0); Platelet Count 208 K/uL (130-400); RDW Standard Deviation 51.3 fL (36.4-46.3); Red Blood Count 3.74 M/uL (4.70-6.10); White Blood Count 3.79 K/ul (4.8-10.8)
--- NOTE | 2025-01-29 09:48 | Hospitalist Progress Note ---
Date of Service January 29, 2025 Assessment & Plan (1) Respiratory failure: Plan: History of home oxygen 4-6 L use as needed with emphysema Intubated and the setting of cardiac arrest, subsequently extubated 01/19 respiratory acidosis morning of 01/21. Remains on BiPAP, settings No wheezing on bedside exam. -Formoterol, budesonide continued. -con't Unasyn for treated of possible aspiration PNA -con't bipap with naps and QHS - CXR today showing pulmonary edema with pleural effusions - Con't lasix 40mg IV - pt now on 6LNC baseline - 2-step ordered, anticipate d/c in 24-48hrs - pt needs new bipap for home (2) Gram-positive bacteremia: Plan: Continued on unasyn. Blood cultures 2 sets positive for GPC, PCR positive for staph epi with meca/c resistance. Procalcitonin is elevated. Vancomycin added possibly 2nd to aspiration pneumonia Norepinephrine resumed at 0.05, stopped No leukocytosis Repeat blood cultures @ 4872 hours Cortisol is not suppressed -ID consult appreciated -abx completed (3) Cardiac arrest: Plan: Loss of consciousness, suspected respiratory arrest versus loss of consciousness due to hypoxia Reportedly ROSC obtained in the field after 6 minutes of CPR. EF is normal, no wall motion abnormalities on echo, troponin with minimal elevation 22.733 on admission.Admitting EKG was sinus with first-degree AV block/right bundle branch block. No territorial ST changes seen - Appreciate cardiology input less likely to have a arrhythmia or cardiac arrest as a cause of his presentation - Chest CTA without thoracic aortic dissection or pulmonary emboli; severe emphysema + several nondisplaced acute rib fractures in the setting of CPR TTE: LVEF 60-65%. RV pressure overload. No noted AV/MV abnormality - Cardiology following (4) Heart failure with reduced ejection fraction: Plan: Past history of HFrEF, LVEF normalized on updated echo Patient reportedly with poor compliance to diuretics. Some leg edema. Admitting CTA with anasarca, right and left pleural effusions, small pericardial effusion Follow-up chest x-rays: Increased right basilar opacity. Suspicious for atelectasis versus developing pneumonia. No overt pulmonary edema Carvedilol continued BNP 1363 (5) Diabetes mellitus: Plan: Continue RISS Farxiga, metformin held Plan This is a 69-year-old male who presented for cardiac arrest on 6/20. Records requested from patient's PCP (Dr. Zhang Mgaaña) with [facility] in [place], [place] Records requested from patient's rn triage (Dr. Carolina Wills) with [facility] in [place], [place] Admission and Anticipated Discharge Date Admission Date: January 18, 2025 Subjective No events overnight. Pt resting in bed. Review of Systems Review of Systems: CONST: Negative for fever, body aches and chills. HENT: Negative for neck pain/stiffness, headache, congestion, sore throat, swelling. EYES: Negative for discharge/pain or vision changes. RESP: Negative for cough/hemoptysis and shortness of breath. CV: Negative chest pain, difficulty breathing, palpitations. ABD: Negative pain, nausea, vomiting. : Negative increase frequency, dysuria, blood in urine or stool. MUSC: Negative for muscle aches, edema. SKIN: Negative rash, lesions/sores. NEURO: Negative headache, dizziness, weakness. Physical Exam Physical Exam: GENERAL APPEARANCE NAD, activity normal for age, well developed/ well nourished, no cyanosis, pallor, or diaphoresis. EYES lids/conjunctiva normal. EARS/NOSE/THROAT Mucous membranes moist, nares normal, lips/teeth normal uvula midline without oral pharyngeal erythema, exudate or swelling TMs normal bilaterally. No lymphangitis/lymphedema. HEAD/NECK bipap in place RESPIRATORY respiratory effort normal, speaks in full sentences, no tripod position, no accessory muscle use. Lungs clear to auscultation without rhonchi, wheezes, rales CARDIAC Regular rate and rhythm, no edema. ABDOMINAL Soft, ND/NT. No evidence of fluid wave. No pulsatile masses on exam, rebound tenderness, Ng sign or pain over Mcburney's point. MUSCLES/EXTREMITIES No abnormal range of motion, no swelling. SKIN Warm, pink and dry. No rashes, dermatoses, petechiae or lesions. NEUROLOGICAL Speech is clear and appropriate. Normal level of consciousness. Gait and coordination are normal. 5/5 strength in all extremities. PSYCH Normal mood and affect. Judgement/competence is appropriate Results & Data Results & Data Vital Signs (Past 12 Hours) Vital Signs Temp Pulse Pulse Resp BP Pulse Ox O2 Del Method 01/29/25 09:25 High Flow Nasal Cannula 01/29/25 09:16 95 H 01/29/25 07:32 36.1 C L 101 H 17 171/73 H 97 Nasal Cannula 01/29/25 07:06 91 H 12 94 Nasal Cannula 01/29/25 03:17 36.7 C 84 18 170/78 H 94 High Flow Nasal Cannula 01/29/25 01:20 18 94 High Flow Nasal Cannula 01/28/25 23:08 80 20 98 01/28/25 22:43 36.5 C 82 18 149/73 H 96 CPAP O2 Flow Rate FiO2 01/29/25 09:25 6 01/29/25 09:16 01/29/25 07:32 6 01/29/25 07:06 6 01/29/25 03:17 7.0 01/29/25 01:20 6 01/28/25 23:08 40 01/28/25 22:43 PG Care Time/CCT Total # of Minutes Spent Total Time Spent with Patient: Total time spent is greater than 50% in coordination of care (as documented) at patient's floor/unit and/or counseling patient: Coding Level of Care Code 49357 SUB INP/OBS CARE 2/35MIN Diagnoses Respiratory failure J96.90 Gram-positive bacteremia R78.81 Cardiac arrest I46.9 Heart failure with reduced ejection fraction I50.20 Diabetes mellitus E11.9
[2025-01-29] MEDS: FUROSEMIDE 40 MG/4 ML VIAL IV ONE (10:17)
--- NOTE | 2025-01-29 10:23 | Electrocardiogram Report ---
Test Reason : Blood Pressure : */* mmHG Vent. Rate : 84 BPM Atrial Rate : 84 BPM P-R Int : 184 ms QRS Dur : 134 ms QT Int : 410 ms P-R-T Axes : 20 261 55 degrees QTcB Int : 484 ms Normal sinus rhythm Right superior axis deviation Non-specific intra-ventricular conduction block Cannot rule out Anteroseptal infarct , age undetermined Abnormal ECG When compared with ECG of 18-Jan-2025 15:09, Vent. rate has increased by 29 bpm Confirmed by Aquiles Espinoza ([id number]) on 01/29/2025 10:22:55 AM Referred By: REFERRED SELF Confirmed By: Aquiles Espinoza
[2025-01-30 05:17] LABS: HCO3 ABG 47 mmol/L (19-24); Oxygen Saturation ABG 90.9 % (90-95); PCO2 ABG 119 mmHg (35-46); PO2 ABG 68 mmHg (80-95)
[2025-01-30 05:49] LABS: Allen Test Pos (Pos)
--- NOTE | 2025-01-30 10:23 | Hospitalist Progress Note ---
Date of Service January 30, 2025 Assessment & Plan (1) Respiratory failure: Plan: History of home oxygen 4-6 L use as needed with emphysema Intubated and the setting of cardiac arrest, subsequently extubated 01/19 respiratory acidosis morning of 01/21. Remains on BiPAP, settings No wheezing on bedside exam. -Formoterol, budesonide continued. -con't Unasyn for treated of possible aspiration PNA -con't bipap with naps and QHS - CXR today showing pulmonary edema with pleural effusions - Con't lasix 40mg IV - pt now on 6LNC baseline - overnight pulse ox study done - pt awaiting biapap approval - plan for d/c home with bipap once available (2) Gram-positive bacteremia: Plan: Continued on unasyn. Blood cultures 2 sets positive for GPC, PCR positive for staph epi with meca/c resistance. Procalcitonin is elevated. Vancomycin added possibly 2nd to aspiration pneumonia Norepinephrine resumed at 0.05, stopped No leukocytosis Repeat blood cultures @ 4872 hours Cortisol is not suppressed -ID consult appreciated -abx completed (3) Cardiac arrest: Plan: Loss of consciousness, suspected respiratory arrest versus loss of consciousness due to hypoxia Reportedly ROSC obtained in the field after 6 minutes of CPR. EF is normal, no wall motion abnormalities on echo, troponin with minimal elevation 22.733 on admission.Admitting EKG was sinus with first-degree AV block/right bundle branch block. No territorial ST changes seen - Appreciate cardiology input less likely to have a arrhythmia or cardiac arrest as a cause of his presentation - Chest CTA without thoracic aortic dissection or pulmonary emboli; severe emphysema + several nondisplaced acute rib fractures in the setting of CPR TTE: LVEF 60-65%. RV pressure overload. No noted AV/MV abnormality - Cardiology following (4) Heart failure with reduced ejection fraction: Plan: Past history of HFrEF, LVEF normalized on updated echo Patient reportedly with poor compliance to diuretics. Some leg edema. Admitting CTA with anasarca, right and left pleural effusions, small pericardial effusion Follow-up chest x-rays: Increased right basilar opacity. Suspicious for atelectasis versus developing pneumonia. No overt pulmonary edema Carvedilol continued BNP 1363 (5) Diabetes mellitus: Plan: Continue RISS Farxiga, metformin held Plan This is a 69-year-old male who presented for cardiac arrest on 01/18. Records requested from patient's PCP (Dr. Zhang Magaña) with [facility] in [place], [place] Records requested from patient's nurse care manager (Dr. Carolina Wills) with [facility] in [place], [place] Admission and Anticipated Discharge Date Admission Date: January 18, 2025 Subjective Pt had overnight pulse ox study, feeling fatigued and mildly confused this am. Review of Systems Review of Systems: CONST: Negative for fever, body aches and chills. HENT: Negative for neck pain/stiffness, headache, congestion, sore throat, swelling. EYES: Negative for discharge/pain or vision changes. RESP: Negative for cough/hemoptysis and shortness of breath. CV: Negative chest pain, difficulty breathing, palpitations. ABD: Negative pain, nausea, vomiting. : Negative increase frequency, dysuria, blood in urine or stool. MUSC: Negative for muscle aches, edema. SKIN: Negative rash, lesions/sores. NEURO: Negative headache, dizziness, weakness. Physical Exam Physical Exam: GENERAL APPEARANCE NAD, activity normal for age, well developed/ well nourished, no cyanosis, pallor, or diaphoresis. EYES lids/conjunctiva normal. EARS/NOSE/THROAT Mucous membranes moist, nares normal, lips/teeth normal uvula midline without oral pharyngeal erythema, exudate or swelling TMs normal bilaterally. No lymphangitis/lymphedema. HEAD/NECK bipap in place RESPIRATORY respiratory effort normal, speaks in full sentences, no tripod position, no accessory muscle use. Lungs clear to auscultation without rhonchi, wheezes, rales CARDIAC Regular rate and rhythm, no edema. ABDOMINAL Soft, ND/NT. No evidence of fluid wave. No pulsatile masses on exam, rebound tenderness, Ng sign or pain over Mcburney's point. MUSCLES/EXTREMITIES No abnormal range of motion, no swelling. SKIN Warm, pink and dry. No rashes, dermatoses, petechiae or lesions. NEUROLOGICAL Speech is clear and appropriate. Normal level of consciousness. Gait and coordination are normal. 5/5 strength in all extremities. PSYCH Normal mood and affect. Judgement/competence is appropriate Results & Data Results & Data Vital Signs (Past 12 Hours) Vital Signs Temp Pulse Pulse Pulse Resp BP Pulse Ox 01/30/25 07:19 92 H 20 94 01/30/25 07:17 91 H 21 94 01/30/25 07:03 36.6 C 92 H 28 H 167/93 H 94 01/30/25 05:08 20 91 01/30/25 03:46 36.5 C 93 H 22 190/87 H 92 01/30/25 02:12 89 01/30/25 00:02 36.6 C 87 18 172/85 H 93 Pulse Ox O2 Del Method O2 Del Method O2 Flow Rate O2 Flow Rate FiO2 01/30/25 07:19 BiPAP 50 01/30/25 07:17 50 01/30/25 07:03 BiPAP 01/30/25 05:08 40 01/30/25 03:46 High Flow Nasal Cannula 13.0 01/30/25 02:12 93 Nasal Cannula 6 01/30/25 00:02 High Flow Nasal Cannula 6.0 PG Care Time/CCT Total # of Minutes Spent Total Time Spent with Patient: Total time spent is greater than 50% in coordination of care (as documented) at patient's floor/unit and/or counseling patient: Coding Level of Care Code 74660 SUB INP/OBS CARE 2/35MIN Diagnoses Respiratory failure J96.90 Gram-positive bacteremia R78.81 Cardiac arrest I46.9 Heart failure with reduced ejection fraction I50.20 Diabetes mellitus E11.9
[2025-01-30] MEDS ORDERED: MAGNESIUM HYDROXIDE SUSP 30 ML UDC PO PRN (13:42)
--- NOTE | 2025-01-31 10:43 | Hospitalist Progress Note ---
Date of Service January 31, 2025 Assessment & Plan (1) Respiratory failure: Plan: History of home oxygen 4-6 L use as needed with emphysema Intubated and the setting of cardiac arrest, subsequently extubated 01/19 respiratory acidosis morning of 01/21. Remains on BiPAP, settings No wheezing on bedside exam. -Formoterol, budesonide continued. -con't Unasyn for treated of possible aspiration PNA -con't bipap with naps and QHS - CXR today showing pulmonary edema with pleural effusions - Con't lasix 40mg IV - f/u CXR today 01/31 - pt awaiting biapap approval - plan for d/c home with bipap once available (2) Gram-positive bacteremia: Plan: Continued on unasyn. Blood cultures 2 sets positive for GPC, PCR positive for staph epi with meca/c resistance. Procalcitonin is elevated. Vancomycin added possibly 2nd to aspiration pneumonia Norepinephrine resumed at 0.05, stopped No leukocytosis Repeat blood cultures @ 4872 hours Cortisol is not suppressed -ID consult appreciated -abx completed (3) Cardiac arrest: Plan: Loss of consciousness, suspected respiratory arrest versus loss of consciousness due to hypoxia Reportedly ROSC obtained in the field after 6 minutes of CPR. EF is normal, no wall motion abnormalities on echo, troponin with minimal elevation 22.733 on admission.Admitting EKG was sinus with first-degree AV block/right bundle branch block. No territorial ST changes seen - Appreciate cardiology input less likely to have a arrhythmia or cardiac arrest as a cause of his presentation - Chest CTA without thoracic aortic dissection or pulmonary emboli; severe emphysema + several nondisplaced acute rib fractures in the setting of CPR TTE: LVEF 60-65%. RV pressure overload. No noted AV/MV abnormality - Cardiology following (4) Heart failure with reduced ejection fraction: Plan: Past history of HFrEF, LVEF normalized on updated echo Patient reportedly with poor compliance to diuretics. Some leg edema. Admitting CTA with anasarca, right and left pleural effusions, small pericardial effusion Follow-up chest x-rays: Increased right basilar opacity. Suspicious for atelectasis versus developing pneumonia. No overt pulmonary edema Carvedilol continued BNP 1363 (5) Diabetes mellitus: Plan: Continue RISS Farxiga, metformin held Plan This is a 69-year-old male who presented for cardiac arrest on 01/18. Records requested from patient's PCP (Dr. Zhang Magaña) with [facility] in [place], [place] Records requested from patient's maintenance carpenter (Dr. Carolina Wills) with [facility] in [place], [place] Admission and Anticipated Discharge Date Admission Date: January 18, 2025 Review of Systems Review of Systems: CONST: Negative for fever, body aches and chills. HENT: Negative for neck pain/stiffness, headache, congestion, sore throat, swelling. EYES: Negative for discharge/pain or vision changes. RESP: Negative for cough/hemoptysis and shortness of breath. CV: Negative chest pain, difficulty breathing, palpitations. ABD: Negative pain, nausea, vomiting. : Negative increase frequency, dysuria, blood in urine or stool. MUSC: Negative for muscle aches, edema. SKIN: Negative rash, lesions/sores. NEURO: Negative headache, dizziness, weakness. Physical Exam Physical Exam: GENERAL APPEARANCE NAD, activity normal for age, well developed/ well nourished, no cyanosis, pallor, or diaphoresis. EYES lids/conjunctiva normal. EARS/NOSE/THROAT Mucous membranes moist, nares normal, lips/teeth normal uvula midline without oral pharyngeal erythema, exudate or swelling TMs normal bilaterally. No lymphangitis/lymphedema. HEAD/NECK bipap in place RESPIRATORY respiratory effort normal, speaks in full sentences, no tripod position, no accessory muscle use. Lungs clear to auscultation without rhonchi, wheezes, rales CARDIAC Regular rate and rhythm, no edema. ABDOMINAL Soft, ND/NT. No evidence of fluid wave. No pulsatile masses on exam, rebound tenderness, Ng sign or pain over Mcburney's point. MUSCLES/EXTREMITIES No abnormal range of motion, no swelling. SKIN Warm, pink and dry. No rashes, dermatoses, petechiae or lesions. NEUROLOGICAL Speech is clear and appropriate. Normal level of consciousness. Gait and coordination are normal. 5/5 strength in all extremities. PSYCH Normal mood and affect. Judgement/competence is appropriate Results & Data Results & Data Vital Signs (Past 12 Hours) Vital Signs Temp Pulse Pulse Resp BP Pulse Ox O2 Del Method 01/31/25 07:33 36.8 C 94 H 18 154/78 H 01/31/25 07:08 78 20 96 BiPAP 01/31/25 03:36 88 20 94 01/31/25 03:00 36.8 C 86 22 146/72 H 97 BiPAP 01/30/25 23:00 37.2 C 95 H 21 154/85 H 93 Oxymask 01/30/25 22:55 98 H 20 95 FiO2 01/31/25 07:33 01/31/25 07:08 50 01/31/25 03:36 50 01/31/25 03:00 01/30/25 23:00 01/30/25 22:55 40 PG Care Time/CCT Total # of Minutes Spent Total Time Spent with Patient: Total time spent is greater than 50% in coordination of care (as documented) at patient's floor/unit and/or counseling patient: Coding Level of Care Code 36604 SUB INP/OBS CARE 2/35MIN Diagnoses Respiratory failure J96.90 Gram-positive bacteremia R78.81 Cardiac arrest I46.9 Heart failure with reduced ejection fraction I50.20 Diabetes mellitus E11.9
--- NOTE | 2025-01-31 12:19 | XRay Report ---
XR chest 1V portable CLINICAL HISTORY: f/u effusions COMPARISON STUDY: 01/27/2025 FINDINGS: There is stable cardiomegaly with mild pulmonary vascular congestion. There are stable smal l bilateral pleural effusions and associated lung base consolidation, right greater than left. No pne umothorax. IMPRESSION: Stable exam. ACT 112: Negative or not required by law. Electronically signed by: Pedro Alston M.D. 01/31/2025 12:18 PM
[2025-01-31 13:10] LABS: Blood Urea Nitrogen 16 mg/dl (6-23); Calcium 8.4 mg/dl (8.6-10.3); Carbon Dioxide > 45 mmol/L (21-32); Chloride 97 mmol/L (98-107); Creatinine Clr Calc Pharmacy 132.9 ml/min; Glucose 167 mg/dl (70-99(Fasting)); Potassium 4.7 mmol/L (3.5-5.1); Sodium 146 mmol/L (136-145)
[2025-01-31 13:37] LABS: Hematocrit (blood only) 43.0 % (42.0-52.0); Hemoglobin 11.9 g/dl (14.0-18.0); Mean Corpuscular Hemoglobin 30.8 pg (25.0-34.0); Mean Corpuscular Volume 111.4 fL (80.0-100.0); Platelet Count 211 K/uL (130-400); RDW Standard Deviation 55.4 fL (36.4-46.3); Red Blood Count 3.86 M/uL (4.70-6.10); White Blood Count 3.06 K/ul (4.8-10.8)
[2025-01-31 17:39] LABS: Base Excess VBG 22.8 mEq/L; HCO3 VBG 57 mmol/L; Oxygen Saturation VBG < 60.0 %; PCO2 VBG 123 mmHg (38-50); PO2 VBG 31 mmHg; pH VBG 7.27 (7.36-7.41)
[2025-01-31 17:52] LABS: iSTAT Art Bld Gas Base Excess 21.0 meg/L (-9-1.8)
[2025-02-01 04:34] LABS: HCO3 ABG 53 mmol/L (19-24); Oxygen Saturation ABG 99.3 % (90-95); PCO2 ABG 87 mmHg (35-46); PO2 ABG 148 mmHg (80-95)
[2025-02-01 04:36] LABS: Allen Test Pos (Pos)
[2025-02-01 08:26] LABS: Hematocrit (blood only) 37.9 % (42.0-52.0); Hemoglobin 10.6 g/dl (14.0-18.0); Mean Corpuscular Hemoglobin 30.5 pg (25.0-34.0); Mean Corpuscular Volume 109.2 fL (80.0-100.0); Platelet Count 212 K/uL (130-400); RDW Standard Deviation 54.1 fL (36.4-46.3); Red Blood Count 3.47 M/uL (4.70-6.10); White Blood Count 3.24 K/ul (4.8-10.8)
[2025-02-01 08:38] LABS: Blood Urea Nitrogen 15 mg/dl (6-23); Calcium 8.4 mg/dl (8.6-10.3); Carbon Dioxide > 45 mmol/L (21-32); Chloride 97 mmol/L (98-107); Creatinine Clr Calc Pharmacy 136.9 ml/min; Glucose 107 mg/dl (70-99(Fasting)); Potassium 4.6 mmol/L (3.5-5.1); Sodium 145 mmol/L (136-145)
--- NOTE | 2025-02-01 10:01 | Pulmonary Consultation ---
Date of Consultation February 01, 2025 Assessment & Plan (1) Rib fracture: (2) LALO (acute kidney injury): (3) CORY (obstructive sleep apnea): (4) Cor pulmonale, acute: (5) Pulmonary hypertension: (6) COPD with emphysema: (7) Acute on chronic respiratory failure with hypoxia and hypercapnia: Plan CTA chest 01/18/2025 personally reviewed: Centrilobular and paraseptal emphysema appreciated bilaterally Small right-sided pleural effusion, minimal left-sided pleural effusion Cardiomegaly No significant mediastinal lymphadenopathy 2D echo 01/18/2025: EF 60-65%, RV dilated, RV function cannot be assessed, flattened septum ABG 01/30/2025: 7./119/68 on 6 L --Acute on chronic hypercapnic respiratory failure Likely secondary noncompliance to CPAP with underlying CORY Underlying COPD also playing a role Would recommend to keep oxygen saturation between 90-92% BiPAP nightly and as needed shortness of breath --Pulmonary hypertension with cor pulmonale Etiology is likely type II as well as CORY noncompliant with CPAP Continue with diuretics --COPD with emphysema On Trelegy 200 at home Does not seem to be in exacerbation Nebulized bronchodilators while in the hospital --Metabolic alkalosis Likely compensatory mechanism to chronic hypercapnia as well as diuresis --CORY Not compliant with CPAP -- S/p VDRF Secondary to cardiac arrest Extubated 01/19/2025 Plan: Patient is reason for hypercapnia is multifactorial CORY/OHS as well as COPD Patient has already been approved for a BiPAP machine. The plan for the family is to take the patient to [place] by dry which will be approximately 7-8 hours. Would recommend them to use BiPAP even in the car with the help of the connector/Adaptor. If the patient will not be awake in the car then is high risk of getting hypercapnic given the long journey Recommend BiPAP setting 16-18/8, aim for tidal volume of around 420-450 with a backup respirate of 16. Continue with BiPAP nightly and as needed shortness of breath Will consider doing an ABG tomorrow, if the ABG shows pH greater than 7.4 then I might give him 2 doses of acetazolamide to 50 mg Case was discussed with primary team as well as RN I spent more than 75 minutes looking in the chart, images, discussing the plan of care with the patient, RN as well as primary team Please note the above document was generated using voice recognition software. It may contain grammatical, syntax or spelling errors.Any formal questions or concerns about the content, text or information contained within the body of this dictation should be directly addressed to the provider for clarification. History of Present Illness Attending Physician: Prasanna Mitchell MD History of Present Illness 69-year-old male was brought to the hospital postcardiac arrest. Got resuscitated in the ED, intubated and sent to the ICU for further care, he was extubated in the ICU and sent to the floor Past medical history: Dyslipidemia, hypertension, emphysema on home O2, diabetes type 2 Pulmonary positive for hypercapnic respiratory failure ''History was obtained from previous chart as well as . As per the he was not feeling well for couple of days complaining of shortness of breath and fatigue. They were driving back to [place] Patient is usually supposed to take diuretics on an as-needed basis but did not take any when he was on the cruise with the family Patient was initially in the ICU s/p witnessed cardiac arrest, CPR was initiated by bystanders followed by BLS and then ACLS AED was applied which did not suggest shocking the patient.'' At the time of examination patient was on BiPAP 20/8, getting tidal volumes of around 500-550. His saturation was 95-96% on 40% FiO2. I went down to 30%. Patient was awake alert oriented. He was answering questions appropriately but was slow to respond. Denies any chest pain, no abdominal pain. No nausea or vomiting. He does acknowledge that he has CPAP at home but is not using it Positive using it explained to him in depth. Has been afebrile Social history: [id number] smoking history, quit in 2009 Allergies Allergy/AdvReac Type Severity Reaction Status Date / Time ibuprofen Allergy Swelling Verified 01/18/25 17:18 of the Eye Home Medications Medication Instructions Recorded Confirmed Type atorvastatin 40 mg tablet 40 mg PO DAILY 01/18/25 01/18/25 History carvedilol 25 mg tablet 25 mg PO BID 01/18/25 01/18/25 History dapagliflozin propanediol 10 mg 10 mg PO DAILY 01/18/25 01/18/25 History tablet (Farxiga) fluticasone fur. 200 mcg-umeclid 1 inh inhalation DIRECTED 01/18/25 01/18/25 History 62.5 mcg-vilant 25 mcg inhalat.powder (Trelegy Ellipta) metformin 500 mg tablet 500 mg PO UD 01/18/25 01/18/25 History montelukast 10 mg tablet 10 mg PO DAILY 01/18/25 01/18/25 History sacubitril 49 mg-valsartan 51 mg 1 tab PO BID 01/18/25 01/18/25 History tablet (Entresto) tadalafil 20 mg tablet 20 mg PO DIRECTED PRN Other 01/18/25 01/18/25 History Patient History Social History Smoking Status: Former smoker Smoking End Date: 2009; Hx Alcohol Use: No Hx Substance Use: No Preferred Language: Italian Communication Ability: Effective Utility Systems Repairer Operator Required: No Beliefs That Will Affect Care: None Current Living Situation: Spouse and Family Other Information That Helps Us Care for You: No Feels Safe at Home: Yes Assistive Devices: Oxygen - Continuous Assistive Devices Comment: O2 4-5L PRN Review of Systems 2 Review of Systems: All systems reviewed & are unremarkable except as noted in HPI & below Physical Exam 2 Physical Exam: Constitutional: No acute distress HEENT: EOMI, PERRLA Respiratory system: Decreased air entry bilaterally, no wheeze, no rhonchi, positive crackles bilateral lower lobe CVS: S1-S2 positive, no murmurs or gallops Abdomen: Soft, nontender, nondistended, positive bowel sounds x4, obese Extremities: +2 pulses bilaterally radialis/ dorsalis pedis, no cyanosis, +2 pitting edema bilateral lower extremity Neuro: Awake and alert oriented to self, slow to respond Psych: Normal mood and affect G/U: Positive [place] Skin: no rashes, warm and dry Lymphatic: no cervical or axillary lymphadenopathy Results & Data Results & Data Vital Signs (Past 12 Hours) Vital Signs Temp Pulse Pulse Resp BP Pulse Ox O2 Del Method 02/01/25 07:14 36.6 C 74 20 138/80 94 BiPAP 02/01/25 07:11 75 22 95 02/01/25 07:11 76 22 95 BiPAP 02/01/25 04:56 02/01/25 02:51 36.4 C L 83 21 114/87 94 BiPAP 02/01/25 02:37 87 22 93 01/31/25 23:26 36.3 C L 86 21 172/90 H 94 BiPAP 01/31/25 22:35 87 22 99 01/31/25 22:00 91 H FiO2 02/01/25 07:14 02/01/25 07:11 40 02/01/25 07:11 40 02/01/25 04:56 40 02/01/25 02:51 02/01/25 02:37 50 01/31/25 23:26 01/31/25 22:35 50 01/31/25 22:00 Laboratory Results 02/01/25 07:40 02/01/25 07:40 PG Care Time/CCT Total # of Minutes Spent Total Time Spent with Patient: Total time spent is greater than 50% in coordination of care (as documented) at patient's floor/unit and/or counseling patient: Coding Level of Care Code 50320 INT INP/OBS CARE 375MIN Diagnoses Rib fracture S22.39XA LALO (acute kidney injury) N17.9 CORY (obstructive sleep apnea) G47.33 Cor pulmonale, acute I26.09 Pulmonary hypertension I27.20 COPD with emphysema J43.9 Acute on chronic respiratory failure with hypoxia and hypercapnia J96.21; J96.22
--- NOTE | 2025-02-01 11:10 | Hospitalist Progress Note ---
Date of Service February 01, 2025 Assessment & Plan (1) Respiratory failure: Plan: History of home oxygen 4-6 L use as needed with emphysema Intubated and the setting of cardiac arrest, subsequently extubated 01/19 respiratory acidosis morning of 01/21. Remains on BiPAP, settings No wheezing on bedside exam. -Formoterol, budesonide continued. -con't Unasyn for treated of possible aspiration PNA -con't bipap with naps and QHS - CXR today showing pulmonary edema with pleural effusions - Con't lasix 40mg IV - f/u CXR today 01/31 shows no new findings - pt biapap approved, will be available Sunday 02/04 - pulmonary consulted as patient unable to remain off bipap - follow up recommendations (2) Gram-positive bacteremia: Plan: Continued on unasyn. Blood cultures 2 sets positive for GPC, PCR positive for staph epi with meca/c resistance. Procalcitonin is elevated. Vancomycin added possibly 2nd to aspiration pneumonia Norepinephrine resumed at 0.05, stopped No leukocytosis Repeat blood cultures @ 4872 hours Cortisol is not suppressed -ID consult appreciated -abx completed (3) Cardiac arrest: Plan: Loss of consciousness, suspected respiratory arrest versus loss of consciousness due to hypoxia Reportedly ROSC obtained in the field after 6 minutes of CPR. EF is normal, no wall motion abnormalities on echo, troponin with minimal elevation 22.733 on admission.Admitting EKG was sinus with first-degree AV block/right bundle branch block. No territorial ST changes seen - Appreciate cardiology input less likely to have a arrhythmia or cardiac arrest as a cause of his presentation - Chest CTA without thoracic aortic dissection or pulmonary emboli; severe emphysema + several nondisplaced acute rib fractures in the setting of CPR TTE: LVEF 60-65%. RV pressure overload. No noted AV/MV abnormality - Cardiology following (4) Heart failure with reduced ejection fraction: Plan: Past history of HFrEF, LVEF normalized on updated echo Patient reportedly with poor compliance to diuretics. Some leg edema. Admitting CTA with anasarca, right and left pleural effusions, small pericardial effusion Follow-up chest x-rays: Increased right basilar opacity. Suspicious for atelectasis versus developing pneumonia. No overt pulmonary edema Carvedilol continued BNP 1363 (5) Diabetes mellitus: Plan: Continue RISS Farxiga, metformin held Plan This is a 69-year-old male who presented for cardiac arrest on 01/18. Records requested from patient's PCP (Dr. 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 Review of Systems Review of Systems: CONST: Negative for fever, body aches and chills. HENT: Negative for neck pain/stiffness, headache, congestion, sore throat, swelling. EYES: Negative for discharge/pain or vision changes. RESP: Negative for cough/hemoptysis and shortness of breath. CV: Negative chest pain, difficulty breathing, palpitations. ABD: Negative pain, nausea, vomiting. : Negative increase frequency, dysuria, blood in urine or stool. MUSC: Negative for muscle aches, edema. SKIN: Negative rash, lesions/sores. NEURO: Negative headache, dizziness, weakness. Physical Exam Physical Exam: GENERAL APPEARANCE NAD, activity normal for age, well developed/ well nourished, no cyanosis, pallor, or diaphoresis. EYES lids/conjunctiva normal. EARS/NOSE/THROAT Mucous membranes moist, nares normal, lips/teeth normal uvula midline without oral pharyngeal erythema, exudate or swelling TMs normal bilaterally. No lymphangitis/lymphedema. HEAD/NECK bipap in place RESPIRATORY respiratory effort normal, speaks in full sentences, no tripod position, no accessory muscle use. Lungs clear to auscultation without rhonchi, wheezes, rales CARDIAC Regular rate and rhythm, no edema. ABDOMINAL Soft, ND/NT. No evidence of fluid wave. No pulsatile masses on exam, rebound tenderness, Ng sign or pain over Mcburney's point. MUSCLES/EXTREMITIES No abnormal range of motion, no swelling. SKIN Warm, pink and dry. No rashes, dermatoses, petechiae or lesions. NEUROLOGICAL Speech is clear and appropriate. Normal level of consciousness. Gait and coordination are normal. 5/5 strength in all extremities. PSYCH Normal mood and affect. Judgement/competence is appropriate Results & Data Results & Data Vital Signs (Past 12 Hours) Vital Signs Temp Pulse Pulse Resp BP Pulse Ox O2 Del Method 02/01/25 11:03 75 22 141/68 H 95 BiPAP 02/01/25 07:14 36.6 C 74 20 138/80 94 BiPAP 02/01/25 07:11 75 22 95 02/01/25 07:11 76 22 95 BiPAP 02/01/25 04:56 02/01/25 02:51 36.4 C L 83 21 114/87 94 BiPAP 02/01/25 02:37 87 22 93 01/31/25 23:26 36.3 C L 86 21 172/90 H 94 BiPAP FiO2 02/01/25 11:03 02/01/25 07:14 02/01/25 07:11 40 02/01/25 07:11 40 02/01/25 04:56 40 02/01/25 02:51 02/01/25 02:37 50 01/31/25 23:26 PG Care Time/CCT Total # of Minutes Spent Total Time Spent with Patient: Total time spent is greater than 50% in coordination of care (as documented) at patient's floor/unit and/or counseling patient: Coding Level of Care Code 55297 SUB INP/OBS CARE 2/35MIN Diagnoses Respiratory failure J96.90 Gram-positive bacteremia R78.81 Cardiac arrest I46.9 Heart failure with reduced ejection fraction I50.20 Diabetes mellitus E11.9
[2025-02-02 04:48] LABS: HCO3 ABG 51 mmol/L (19-24); Oxygen Saturation ABG 98.4 % (90-95); PCO2 ABG 77 mmHg (35-46); PO2 ABG 98 mmHg (80-95)
[2025-02-02 05:07] LABS: Allen Test Pos (Pos)
[2025-02-02 07:36] LABS: Blood Urea Nitrogen 14 mg/dl (6-23); Calcium 8.5 mg/dl (8.6-10.3); Carbon Dioxide > 45 mmol/L (21-32); Chloride 95 mmol/L (98-107); Creatinine Clr Calc Pharmacy 163.2 ml/min; Glucose 104 mg/dl (70-99(Fasting)); Potassium 4.2 mmol/L (3.5-5.1); Sodium 145 mmol/L (136-145)
[2025-02-02] MEDS: METOPROLOL TARTRATE 1 MG/ML VIAL IV PRN (07:50)
[2025-02-02 08:53] LABS: Hematocrit (blood only) 37.4 % (42.0-52.0); Hemoglobin 10.6 g/dl (14.0-18.0); Mean Corpuscular Hemoglobin 30.3 pg (25.0-34.0); Mean Corpuscular Volume 106.9 fL (80.0-100.0); Platelet Count 239 K/uL (130-400); RDW Standard Deviation 53.1 fL (36.4-46.3); Red Blood Count 3.50 M/uL (4.70-6.10); White Blood Count 2.79 K/ul (4.8-10.8)
--- NOTE | 2025-02-02 10:45 | Hospitalist Progress Note ---
Date of Service February 02, 2025 Assessment & Plan (1) Respiratory failure: Plan: History of home oxygen 4-6 L use as needed with emphysema Intubated and the setting of cardiac arrest, subsequently extubated 01/19 respiratory acidosis morning of 01/21. Remains on BiPAP, settings No wheezing on bedside exam. -Formoterol, budesonide continued. -con't Unasyn for treated of possible aspiration PNA -con't bipap with naps and QHS - CXR today showing pulmonary edema with pleural effusions - Con't lasix 40mg IV - f/u CXR today 01/31 shows no new findings - pt biapap approved, will be available Sunday 02/04 - pulmonary consult appreciated - maintain 02 between 90-92% - con't bipap setting as per pulmonary (2) Gram-positive bacteremia: Plan: Continued on unasyn. Blood cultures 2 sets positive for GPC, PCR positive for staph epi with meca/c resistance. Procalcitonin is elevated. Vancomycin added possibly 2nd to aspiration pneumonia Norepinephrine resumed at 0.05, stopped No leukocytosis Repeat blood cultures @ 4872 hours Cortisol is not suppressed -ID consult appreciated -abx completed (3) Cardiac arrest: Plan: Loss of consciousness, suspected respiratory arrest versus loss of consciousness due to hypoxia Reportedly ROSC obtained in the field after 6 minutes of CPR. EF is normal, no wall motion abnormalities on echo, troponin with minimal elevation 22.733 on admission.Admitting EKG was sinus with first-degree AV block/right bundle branch block. No territorial ST changes seen - Appreciate cardiology input less likely to have a arrhythmia or cardiac arrest as a cause of his presentation - Chest CTA without thoracic aortic dissection or pulmonary emboli; severe emphysema + several nondisplaced acute rib fractures in the setting of CPR TTE: LVEF 60-65%. RV pressure overload. No noted AV/MV abnormality - Cardiology following (4) Heart failure with reduced ejection fraction: Plan: Past history of HFrEF, LVEF normalized on updated echo Patient reportedly with poor compliance to diuretics. Some leg edema. Admitting CTA with anasarca, right and left pleural effusions, small pericardial effusion Follow-up chest x-rays: Increased right basilar opacity. Suspicious for atelectasis versus developing pneumonia. No overt pulmonary edema Carvedilol continued BNP 1363 (5) Diabetes mellitus: Plan: Continue RISS Farxiga, metformin held Plan This is a 69-year-old male who presented for cardiac arrest on 01/18. Records requested from patient's PCP (Dr. 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 Carolina Wills) with [facility] in [place], [place] Admission and Anticipated Discharge Date Admission Date: January 18, 2025 Subjective Pt appears less lethargic this am. Currently on bipap. Review of Systems Review of Systems: CONST: Negative for fever, body aches and chills. HENT: Negative for neck pain/stiffness, headache, congestion, sore throat, swelling. EYES: Negative for discharge/pain or vision changes. RESP: Negative for cough/hemoptysis and shortness of breath. CV: Negative chest pain, difficulty breathing, palpitations. ABD: Negative pain, nausea, vomiting. : Negative increase frequency, dysuria, blood in urine or stool. MUSC: Negative for muscle aches, edema. SKIN: Negative rash, lesions/sores. NEURO: Negative headache, dizziness, weakness. Physical Exam Physical Exam: GENERAL APPEARANCE NAD, activity normal for age, well developed/ well nourished, no cyanosis, pallor, or diaphoresis. EYES lids/conjunctiva normal. EARS/NOSE/THROAT Mucous membranes moist, nares normal, lips/teeth normal uvula midline without oral pharyngeal erythema, exudate or swelling TMs normal bilaterally. No lymphangitis/lymphedema. HEAD/NECK bipap in place RESPIRATORY respiratory effort normal, speaks in full sentences, no tripod position, no accessory muscle use. Lungs clear to auscultation without rhonchi, wheezes, rales CARDIAC Regular rate and rhythm, no edema. ABDOMINAL Soft, ND/NT. No evidence of fluid wave. No pulsatile masses on exam, rebound tenderness, Ng sign or pain over Mcburney's point. MUSCLES/EXTREMITIES No abnormal range of motion, no swelling. SKIN Warm, pink and dry. No rashes, dermatoses, petechiae or lesions. NEUROLOGICAL Speech is clear and appropriate. Normal level of consciousness. Gait and coordination are normal. 5/5 strength in all extremities. PSYCH Normal mood and affect. Judgement/competence is appropriate Results & Data Results & Data Vital Signs (Past 12 Hours) Vital Signs Temp Pulse Pulse Pulse Resp BP BP 02/02/25 08:13 74 174/88 H 02/02/25 08:02 36.6 C 74 25 H 182/94 H 02/02/25 08:00 73 02/02/25 07:50 86 193/104 H 02/02/25 07:49 193/104 H 02/02/25 07:36 02/02/25 07:07 74 22 02/02/25 07:07 74 22 02/02/25 04:13 36.8 C 92 H 22 149/84 H 02/02/25 03:32 77 22 02/01/25 23:17 92 H 22 02/01/25 22:50 36.8 C 82 23 171/87 H Pulse Ox O2 Del Method FiO2 02/02/25 08:13 02/02/25 08:02 95 BiPAP 02/02/25 08:00 02/02/25 07:50 02/02/25 07:49 02/02/25 07:36 BiPAP, High Flow Nasal Cannula 40 02/02/25 07:07 94 50 02/02/25 07:07 94 BiPAP 50 02/02/25 04:13 95 Room Air 02/02/25 03:32 92 45 02/01/25 23:17 93 40 02/01/25 22:50 95 BiPAP PG Care Time/CCT Total # of Minutes Spent Total Time Spent with Patient: Total time spent is greater than 50% in coordination of care (as documented) at patient's floor/unit and/or counseling patient: Coding Level of Care Code 48018 SUB INP/OBS CARE 2/35MIN Diagnoses Respiratory failure J96.90 Gram-positive bacteremia R78.81 Cardiac arrest I46.9 Heart failure with reduced ejection fraction I50.20 Diabetes mellitus E11.9
--- NOTE | 2025-02-02 11:36 | Pulmonology Progress Note ---
Date of Service February 02, 2025 Assessment & Plan (1) Rib fracture: (2) LALO (acute kidney injury): (3) CORY (obstructive sleep apnea): (4) Cor pulmonale, acute: (5) Pulmonary hypertension: (6) COPD with emphysema: (7) Acute on chronic respiratory failure with hypoxia and hypercapnia: Plan CTA chest 01/18/2025 personally reviewed: Centrilobular and paraseptal emphysema appreciated bilaterally Small right-sided pleural effusion, minimal left-sided pleural effusion Cardiomegaly No significant mediastinal lymphadenopathy 2D echo 01/18/2025: EF 60-65%, RV dilated, RV function cannot be assessed, flattened septum ABG 01/30/2025: 7./119/68 on 6 L --Acute on chronic hypercapnic respiratory failure Likely secondary noncompliance to CPAP with underlying CORY Underlying COPD also playing a role Would recommend to keep oxygen saturation between 90-92% BiPAP nightly and as needed shortness of breath --Pulmonary hypertension with cor pulmonale Etiology is likely type II as well as CORY noncompliant with CPAP Continue with diuretics --COPD with emphysema On Trelegy 200 at home Does not seem to be in exacerbation Nebulized bronchodilators while in the hospital --Metabolic alkalosis Likely compensatory mechanism to chronic hypercapnia as well as diuresis --CORY Not compliant with CPAP -- S/p VDRF Secondary to cardiac arrest Extubated 01/19/2025 Plan: ABG from today shows pH of 7.43, will give acetazolamide 250 mg today as well as tomorrow Patient has already been approved for a BiPAP machine. The plan for the family is to take the patient to [place] by dry which will be approximately 7-8 hours. Would recommend them to use BiPAP even in the car with the help of the connector/Adaptor. If the patient will not be awake in the car then is high risk of getting hypercapnic given the long journey Recommend BiPAP setting 16-18/8, aim for tidal volume of around 420-450 with a backup respirate of 16. Continue with BiPAP nightly and as needed shortness of breath Case was discussed with primary team as well as RN Please note the above document was generated using voice recognition software. It may contain grammatical, syntax or spelling errors.Any formal questions or concerns about the content, text or information contained within the body of this dictation should be directly addressed to the provider for clarification. Admission and Anticipated Discharge Date Admission Date: January 18, 2025 Subjective Patient seen and examined at bedside. No acute distress, no adverse events overnight He was on BiPAP 18/8, 40%, saturating 95%. I went down to 16/8 and FiO2 35%, he was still saturating at 92-93% He stated overall he is feeling better. Shortness of breath is improved As per the nurse patient does get short of breath when he is off BiPAP very easily. Denied any nausea or vomiting No abdominal pain Review of Systems 2 Review of Systems: All systems reviewed & are unremarkable except as noted in Subjective Physical Exam 2 Physical Exam: Constitutional: No acute distress HEENT: EOMI, PERRLA Respiratory system: Decreased air entry bilaterally, no wheeze, no rhonchi, positive crackles bilateral lower lobe CVS: S1-S2 positive, no murmurs or gallops Abdomen: Soft, nontender, nondistended, positive bowel sounds x4, obese Extremities: +2 pulses bilaterally radialis/ dorsalis pedis, no cyanosis, +2 pitting edema bilateral lower extremity Neuro: Awake and alert oriented to self Psych: Normal mood and affect G/U: No [place] Skin: no rashes, warm and dry Lymphatic: no cervical or axillary lymphadenopathy Results & Data Results & Data Vital Signs (Past 12 Hours) Vital Signs Temp Pulse Pulse Pulse Resp BP BP 02/02/25 11:16 79 22 02/02/25 11:12 36.9 C 82 20 137/78 02/02/25 08:13 74 174/88 H 02/02/25 08:02 36.6 C 74 25 H 182/94 H 02/02/25 08:00 73 02/02/25 07:50 86 193/104 H 02/02/25 07:49 193/104 H 02/02/25 07:36 02/02/25 07:07 74 22 02/02/25 07:07 74 22 02/02/25 04:13 36.8 C 92 H 22 149/84 H 02/02/25 03:32 77 22 Pulse Ox O2 Del Method FiO2 02/02/25 11:16 97 50 02/02/25 11:12 97 BiPAP 02/02/25 08:13 02/02/25 08:02 95 BiPAP 02/02/25 08:00 02/02/25 07:50 02/02/25 07:49 02/02/25 07:36 BiPAP, High Flow Nasal Cannula 40 02/02/25 07:07 94 50 02/02/25 07:07 94 BiPAP 50 02/02/25 04:13 95 Room Air 02/02/25 03:32 92 45 Laboratory Results 02/02/25 06:51 02/02/25 06:51 PG Care Time/CCT Total # of Minutes Spent Total Time Spent with Patient: Total time spent is greater than 50% in coordination of care (as documented) at patient's floor/unit and/or counseling patient: Coding Level of Care Code 64710 SUB INP/OBS CARE 2/35MIN Diagnoses Rib fracture S22.39XA LALO (acute kidney injury) N17.9 CORY (obstructive sleep apnea) G47.33 Cor pulmonale, acute I26.09 Pulmonary hypertension I27.20 COPD with emphysema J43.9 Acute on chronic respiratory failure with hypoxia and hypercapnia J96.21; J96.22
[2025-02-02] MEDS: acetaZOLAMIDE 250 MG in SYRINGE 0 ML IV ONE (11:49)
[2025-02-03 06:26] LABS: Base Excess VBG 17.2 mEq/L; HCO3 VBG 49 mmol/L; Oxygen Saturation VBG < 60.0 %; PCO2 VBG 102 mmHg (38-50); PO2 VBG 36 mmHg; pH VBG 7.29 (7.36-7.41)
[2025-02-03 07:06] LABS: Blood Urea Nitrogen 13 mg/dl (6-23); Calcium 8.7 mg/dl (8.6-10.3); Carbon Dioxide > 45 mmol/L (21-32); Chloride 96 mmol/L (98-107); Creatinine Clr Calc Pharmacy 144.0 ml/min; Glucose 99 mg/dl (70-99(Fasting)); Potassium 4.2 mmol/L (3.5-5.1); Sodium 145 mmol/L (136-145)
[2025-02-03 07:26] LABS: Hematocrit (blood only) 40.4 % (42.0-52.0); Hemoglobin 11.4 g/dl (14.0-18.0); Mean Corpuscular Hemoglobin 30.5 pg (25.0-34.0); Mean Corpuscular Volume 108.0 fL (80.0-100.0); Platelet Count 215 K/uL (130-400); RDW Standard Deviation 54.4 fL (36.4-46.3); Red Blood Count 3.74 M/uL (4.70-6.10); White Blood Count 3.07 K/ul (4.8-10.8)
--- NOTE | 2025-02-03 10:11 | Pulmonology Progress Note ---
Date of Service February 03, 2025 Assessment & Plan (1) Rib fracture: (2) LALO (acute kidney injury): (3) CORY (obstructive sleep apnea): (4) Cor pulmonale, acute: (5) Pulmonary hypertension: (6) COPD with emphysema: (7) Acute on chronic respiratory failure with hypoxia and hypercapnia: Plan CTA chest 01/18/2025 personally reviewed: Centrilobular and paraseptal emphysema appreciated bilaterally Small right-sided pleural effusion, minimal left-sided pleural effusion Cardiomegaly No significant mediastinal lymphadenopathy 2D echo 01/18/2025: EF 60-65%, RV dilated, RV function cannot be assessed, flattened septum ABG 01/30/2025: 7./119/68 on 6 L --Acute on chronic hypercapnic respiratory failure Likely secondary noncompliance to CPAP with underlying CORY Underlying COPD also playing a role Would recommend to keep oxygen saturation between 90-92% BiPAP nightly and as needed shortness of breath --Pulmonary hypertension with cor pulmonale Etiology is likely type II as well as CORY noncompliant with CPAP Continue with diuretics --COPD with emphysema On Trelegy 200 at home Does not seem to be in exacerbation Nebulized bronchodilators while in the hospital --Metabolic alkalosis Likely compensatory mechanism to chronic hypercapnia as well as diuresis --CORY Not compliant with CPAP -- S/p VDRF Secondary to cardiac arrest Extubated 01/19/2025 Plan: Patient has already been approved for a BiPAP machine. The plan for the family is to take the patient to [place] by dry which will be approximately 7-8 hours. I do not think patient is stable enough for a long drive to [place]. The reason for patient's increased requirement of oxygen is likely from underlying COPD, noncompliance with CORY as well as probable insult to the brain with cardiac arrest as he does seem to be slow to respond Recommend BiPAP setting 16-18/8, aim for tidal volume of around 420-450 with a backup respirate of 16. Continue with BiPAP nightly and as needed shortness of breath Follow-up chest x-ray from today Case was discussed with primary team as well as RN Please note the above document was generated using voice recognition software. It may contain grammatical, syntax or spelling errors.Any formal questions or concerns about the content, text or information contained within the body of this dictation should be directly addressed to the provider for clarification. Admission and Anticipated Discharge Date Admission Date: January 18, 2025 Subjective Patient seen and examined at bedside. No acute distress Early in the morning while patient was sitting on the chair, he took his oxygen off and try to get to the chair He desaturated to mid 70s and stated that he was not able to breathe Nurse was able to put the BiPAP on At the time of examination he was saturating 92% on 50% FiO2, BiPAP 16/8 He was somnolent but easily arousable. Denied any chest pain, no nausea vomiting Review of Systems 2 Review of Systems: All systems reviewed & are unremarkable except as noted in Subjective Physical Exam 2 Physical Exam: Constitutional: No acute distress HEENT: EOMI, PERRLA Respiratory system: Decreased air entry bilaterally, no wheeze, no rhonchi, positive crackles bilateral lower lobe CVS: S1-S2 positive, no murmurs or gallops Abdomen: Soft, nontender, nondistended, positive bowel sounds x4, obese Extremities: +2 pulses bilaterally radialis/ dorsalis pedis, no cyanosis, +2 pitting edema bilateral lower extremity Neuro: Awake and alert oriented to self Psych: Flat mood and affect G/U: No [place] Skin: no rashes, warm and dry Lymphatic: no cervical or axillary lymphadenopathy Results & Data Results & Data Vital Signs (Past 12 Hours) Vital Signs Temp Pulse Pulse Resp BP Pulse Ox O2 Del Method 02/03/25 07:37 36.6 C 80 23 198/83 H 94 CPAP 02/03/25 07:16 82 22 94 BiPAP 02/03/25 07:14 82 22 94 02/03/25 02:53 77 22 96 02/03/25 02:47 36.4 C L 76 20 162/81 H 93 BiPAP 02/02/25 23:44 20 02/02/25 23:39 36.4 C L 73 22 128/73 91 BiPAP 02/02/25 23:18 80 22 90 02/02/25 22:26 BiPAP, High Flow Nasal Cannula O2 Flow Rate FiO2 02/03/25 07:37 02/03/25 07:16 45 02/03/25 07:14 45 02/03/25 02:53 45 02/03/25 02:47 02/02/25 23:44 02/02/25 23:39 50 02/02/25 23:18 50 02/02/25 22:26 6 45 Laboratory Results 02/03/25 06:17 02/03/25 06:17 PG Care Time/CCT Total # of Minutes Spent Total Time Spent with Patient: Total time spent is greater than 50% in coordination of care (as documented) at patient's floor/unit and/or counseling patient: Coding Level of Care Code 34013 SUB INP/OBS CARE 2/35MIN Diagnoses Rib fracture S22.39XA LALO (acute kidney injury) N17.9 CORY (obstructive sleep apnea) G47.33 Cor pulmonale, acute I26.09 Pulmonary hypertension I27.20 COPD with emphysema J43.9 Acute on chronic respiratory failure with hypoxia and hypercapnia J96.21; J96.22
--- NOTE | 2025-02-03 11:05 | Hospitalist Progress Note ---
Date of Service February 03, 2025 Assessment & Plan (1) Respiratory failure: Plan: History of home oxygen 4-6 L use as needed with emphysema Intubated and the setting of cardiac arrest, subsequently extubated 01/19 respiratory acidosis morning of 01/21. Remains on BiPAP, settings No wheezing on bedside exam. -Formoterol, budesonide continued. -con't Unasyn for treated of possible aspiration PNA -con't bipap with naps and QHS - f/u CXR 01/31 shows no new findings - pt biapap approved, will be available Sunday 02/04 - pulmonary consult appreciated - maintain 02 between 90-92% - con't bipap setting as per pulmonary - plan for patient to be discharged home on 02/04 with bipap with d/c adapter so he make take it on 7hr [address] drive to [place] with . (2) Gram-positive bacteremia: Plan: Continued on unasyn. Blood cultures 2 sets positive for GPC, PCR positive for staph epi with meca/c resistance. Procalcitonin is elevated. Vancomycin added possibly 2nd to aspiration pneumonia Norepinephrine resumed at 0.05, stopped No leukocytosis Repeat blood cultures @ 4872 hours Cortisol is not suppressed -ID consult appreciated -abx completed (3) Cardiac arrest: Plan: Loss of consciousness, suspected respiratory arrest versus loss of consciousness due to hypoxia Reportedly ROSC obtained in the field after 6 minutes of CPR. EF is normal, no wall motion abnormalities on echo, troponin with minimal elevation 22.733 on admission.Admitting EKG was sinus with first-degree AV block/right bundle branch block. No territorial ST changes seen - Appreciate cardiology input less likely to have a arrhythmia or cardiac arrest as a cause of his presentation - Chest CTA without thoracic aortic dissection or pulmonary emboli; severe emphysema + several nondisplaced acute rib fractures in the setting of CPR TTE: LVEF 60-65%. RV pressure overload. No noted AV/MV abnormality (4) Heart failure with reduced ejection fraction: Plan: Past history of HFrEF, LVEF normalized on updated echo Patient reportedly with poor compliance to diuretics. Some leg edema. Admitting CTA with anasarca, right and left pleural effusions, small pericardial effusion Follow-up chest x-rays: Increased right basilar opacity. Suspicious for atelectasis versus developing pneumonia. No overt pulmonary edema Carvedilol continued BNP 1363 - patient received diuresis with lasix IV (5) Diabetes mellitus: Plan: Continue RISS Farxiga, metformin held Plan This is a 69-year-old male who presented for cardiac arrest on 01/18, found to have gram + bacteremia, acute hypercapnic respiratory failure with h/o COPD/CORY and non compliance with NIV, acute on chronic heart failure, who has had prolonged hospitalization 2nd to CO2 retention requiring extensive use of bipap. Admission and Anticipated Discharge Date Admission Date: January 18, 2025 Subjective No events overnight. Pt on bipap this am, appears to awake and at baseline mental status. Review of Systems Review of Systems: CONST: Negative for fever, body aches and chills. HENT: Negative for neck pain/stiffness, headache, congestion, sore throat, swelling. EYES: Negative for discharge/pain or vision changes. RESP: Negative for cough/hemoptysis and shortness of breath. CV: Negative chest pain, difficulty breathing, palpitations. ABD: Negative pain, nausea, vomiting. : Negative increase frequency, dysuria, blood in urine or stool. MUSC: Negative for muscle aches, edema. SKIN: Negative rash, lesions/sores. NEURO: Negative headache, dizziness, weakness. Physical Exam Physical Exam: GENERAL APPEARANCE NAD, activity normal for age, well developed/ well nourished, no cyanosis, pallor, or diaphoresis. EYES lids/conjunctiva normal. EARS/NOSE/THROAT Mucous membranes moist, nares normal, lips/teeth normal uvula midline without oral pharyngeal erythema, exudate or swelling TMs normal bilaterally. No lymphangitis/lymphedema. HEAD/NECK bipap in place RESPIRATORY respiratory effort normal, speaks in full sentences, no tripod position, no accessory muscle use. Lungs clear to auscultation without rhonchi, wheezes, rales CARDIAC Regular rate and rhythm, no edema. ABDOMINAL Soft, ND/NT. No evidence of fluid wave. No pulsatile masses on exam, rebound tenderness, Ng sign or pain over Mcburney's point. MUSCLES/EXTREMITIES No abnormal range of motion, no swelling. SKIN Warm, pink and dry. No rashes, dermatoses, petechiae or lesions. NEUROLOGICAL Speech is clear and appropriate. Normal level of consciousness. Gait and coordination are normal. 5/5 strength in all extremities. PSYCH Normal mood and affect. Judgement/competence is appropriate Results & Data Results & Data Vital Signs (Past 12 Hours) Vital Signs Temp Pulse Pulse Resp BP BP Pulse Ox 02/03/25 10:50 72 180/89 H 02/03/25 07:37 36.6 C 80 23 198/83 H 94 02/03/25 07:16 82 22 94 02/03/25 07:14 82 22 94 02/03/25 02:53 77 22 96 02/03/25 02:47 36.4 C L 76 20 162/81 H 93 02/02/25 23:44 20 02/02/25 23:39 36.4 C L 73 22 128/73 91 02/02/25 23:18 80 22 90 O2 Del Method FiO2 02/03/25 10:50 02/03/25 07:37 CPAP 02/03/25 07:16 BiPAP 45 02/03/25 07:14 45 02/03/25 02:53 45 02/03/25 02:47 BiPAP 02/02/25 23:44 02/02/25 23:39 BiPAP 50 02/02/25 23:18 50 PG Care Time/CCT Total # of Minutes Spent Total Time Spent with Patient: Total time spent is greater than 50% in coordination of care (as documented) at patient's floor/unit and/or counseling patient: Coding Level of Care Code 89622 SUB INP/OBS CARE 2/35MIN Diagnoses Respiratory failure J96.90 Gram-positive bacteremia R78.81 Cardiac arrest I46.9 Heart failure with reduced ejection fraction I50.20 Diabetes mellitus E11.9
--- NOTE | 2025-02-03 12:10 | XRay Report ---
XR chest 1V portable CLINICAL HISTORY: f/u COMPARISON STUDY: Chest CT January 18, 2025. Chest radiograph January 31, 2025. FINDINGS: Severe emphysema is again noted. There is no pneumothorax. Enlargement of the cardiac silho uette is unchanged. Moderate right and small left pleural effusions are similar prior exam. Associate d bibasilar opacities are also unchanged. IMPRESSION: 1. No significant change in appearance of the chest. Moderate right and small left pleural effusions with associated bibasilar opacities which could represent pneumonia or atelectasis. Continued radiogr aphic follow-up to ensure resolution is recommended. 2. Emphysema. 3. Stable enlargement of the cardiac silhouette. ACT 112: Negative or not required by law. Electronically signed by: Dilshad Rawls M.D. 02/03/2025 12:09 PM
[2025-02-03] MEDS: FUROSEMIDE 40 MG/4 ML VIAL IV SCH (12:57)
[2025-02-03] MEDS: acetaZOLAMIDE 250 MG in SYRINGE 0 ML IV ONE (17:48)
[2025-02-04 09:34] LABS: Base Excess VBG 26.3 mEq/L; HCO3 VBG 57 mmol/L; Oxygen Saturation VBG 86.2 %; PCO2 VBG 104 mmHg (38-50); PO2 VBG 54 mmHg; pH VBG 7.35 (7.36-7.41)
--- NOTE | 2025-02-04 09:35 | Pulmonology Progress Note ---
Date of Service February 04, 2025 Assessment & Plan (1) CORY (obstructive sleep apnea): (2) Cor pulmonale, acute: (3) Pulmonary hypertension: (4) COPD with emphysema: (5) Acute on chronic respiratory failure with hypoxia and hypercapnia: Plan CTA chest 01/18/2025 personally reviewed: Centrilobular and paraseptal emphysema appreciated bilaterally Small right-sided pleural effusion, minimal left-sided pleural effusion Cardiomegaly No significant mediastinal lymphadenopathy 2D echo 01/18/2025: EF 60-65%, RV dilated, RV function cannot be assessed, flattened septum ABG 01/30/2025: 7.20/119/68 on 6 L --Acute on chronic hypercapnic respiratory failure Likely secondary noncompliance to CPAP with underlying CORY Underlying COPD also playing a role Would recommend to keep oxygen saturation between 90-92% BiPAP nightly and as needed shortness of breath --Pulmonary hypertension with cor pulmonale Etiology is likely type II as well as CORY noncompliant with CPAP Continue with diuretics --COPD with emphysema On Trelegy 200 at home Does not seem to be in exacerbation Nebulized bronchodilators while in the hospital --Metabolic alkalosis Likely compensatory mechanism to chronic hypercapnia as well as diuresis --CORY Not compliant with CPAP -- S/p VDRF Secondary to cardiac arrest Extubated 01/19/2025 Plan: Patient has already been approved for a BiPAP machine. Patient with intermittent delirium possibly from hypercapnia. Continue BiPAP prn and with sleep. Continue to wean o2 as able. Defer diureses at this time to primary team. Follow serum co2. Likely developing contraction alkalosis over top of chronic compensation for respiratory acidosis. Admission and Anticipated Discharge Date Admission Date: January 18, 2025 Subjective Patient a bit confused this morning. Denies dyspnea at rest. I decreased o2 flow from 8 to 4l nc. Denies chest pain. Says he used Bipap last night. Per nursing he desats significantly with minimal exertion. Review of Systems Review of Systems: All systems reviewed & are unremarkable except as noted in HPI & below Physical Exam Physical Exam: Constitutional: No acute distress HEENT: EOMI, PERRLA Respiratory system: Decreased air entry bilaterally, no wheeze, no rhonchi, positive crackles bilateral lower lobe CVS: S1-S2 positive, no murmurs or gallops Abdomen: Soft, nontender, nondistended, positive bowel sounds x4, obese Extremities: +2 pulses bilaterally radialis/ dorsalis pedis, no cyanosis, +2 pitting edema bilateral lower extremity Neuro: Awake and alert oriented to self Psych: Flat mood and affect G/U: No [place] Skin: no rashes, warm and dry Lymphatic: no cervical or axillary lymphadenopathy Results & Data Results & Data Vital Signs (Past 12 Hours) Vital Signs Temp Pulse Pulse Resp BP Pulse Ox O2 Del Method 02/04/25 08:10 94 High Flow Nasal Cannula 02/04/25 08:03 BiPAP, High Flow Nasal Cannula 02/04/25 07:25 83 22 177/86 H 95 BiPAP 02/04/25 07:00 80 22 92 02/04/25 07:00 80 22 94 BiPAP 02/04/25 05:12 92 BiPAP 02/04/25 04:43 93 BiPAP 02/04/25 04:41 BiPAP 02/04/25 04:28 36.8 C 79 20 176/76 H 96 Room Air 02/04/25 02:14 80 22 94 02/03/25 23:53 36.7 C 72 22 166/96 H 93 BiPAP 02/03/25 22:34 BiPAP, High Flow Nasal Cannula 02/03/25 22:28 78 22 96 02/03/25 22:02 71 O2 Flow Rate FiO2 02/04/25 08:10 8 02/04/25 08:03 02/04/25 07:25 02/04/25 07:00 45 02/04/25 07:00 45 02/04/25 05:12 45 02/04/25 04:43 02/04/25 04:41 35 02/04/25 04:28 02/04/25 02:14 45 02/03/25 23:53 02/03/25 22:34 8 45 02/03/25 22:28 40 02/03/25 22:02 PG Care Time/CCT Total # of Minutes Spent Total Time Spent with Patient: Total time spent is greater than 50% in coordination of care (as documented) at patient's floor/unit and/or counseling patient: Coding Level of Care Code 68510 SUB INP/OBS CARE 2/35MIN Diagnoses CORY (obstructive sleep apnea) G47.33 Cor pulmonale, acute I26.09 Pulmonary hypertension I27.20 COPD with emphysema J43.9 Acute on chronic respiratory failure with hypoxia and hypercapnia J96.21; J96.22
[2025-02-04 09:41] LABS: Hematocrit (blood only) 40.6 % (42.0-52.0); Hemoglobin 11.5 g/dl (14.0-18.0); Mean Corpuscular Hemoglobin 30.1 pg (25.0-34.0); Mean Corpuscular Volume 106.3 fL (80.0-100.0); Platelet Count 245 K/uL (130-400); RDW Standard Deviation 53.2 fL (36.4-46.3); Red Blood Count 3.82 M/uL (4.70-6.10); White Blood Count 2.30 K/ul (4.8-10.8)
[2025-02-04 09:52] LABS: Blood Urea Nitrogen 10 mg/dl (6-23); Calcium 8.8 mg/dl (8.6-10.3); Carbon Dioxide > 45 mmol/L (21-32); Chloride 93 mmol/L (98-107); Creatinine Clr Calc Pharmacy 153.0 ml/min; Glucose 130 mg/dl (70-99(Fasting)); Potassium 4.0 mmol/L (3.5-5.1); Sodium 144 mmol/L (136-145)
--- NOTE | 2025-02-04 15:31 | Hospitalist Progress Note ---
Date of Service February 04, 2025 Assessment & Plan (1) Respiratory failure: Plan: Acute on chronic respiratory failure with hypoxia and hypercapnia from a combination of CHF, exacerbation of COPD, and sepsis. Appreciate pulmonary medicine consultation and recommendations. Continue to treat CHF and COPD. Avoid high oxygen saturations. Repeat chest x-ray tomorrow, February 05. (2) Gram-positive bacteremia: Plan: Staph isolated in blood cultures January 20. Negative blood cultures January 21. He remains on intravenous Unasyn. Will discontinue antibiotics tomorrow, February 05. Previously on vancomycin this admission. Procalcitonin is elevated. (3) Cardiac arrest: Plan: suspected respiratory arrest versus loss of consciousness due to hypoxia. R eportedly ROSC obtained in the field after 6 minutes of CPR. EF is normal, no wall motion abnormalities on echo. No definite evidence of acute coronary syndrome. Troponin with minimal elevation on admission. Admitting EKG was sinus with first-degree AV block/right bundle branch block. No territorial ST changes seen. Appreciate cardiology consultation and recommendations. Chest CTA without thoracic aortic dissection or pulmonary emboli. Noted to have severe emphysema + several nondisplaced acute rib fractures in the setting of CPR. T TE: LVEF 60-65%. RV pressure overload. No noted AV/MV abnormality (4) Heart failure with reduced ejection fraction: Plan: He appears to have acute on chronic diastolic CHF. Most recent echo reveals normal ejection fraction now. Repeat BNP level pending. Now on parenteral Lasix. Toscano catheter placed for accurate output measurements. (5) Diabetes mellitus: Plan: ADA diet. Sliding scale coverage as needed. Farxiga, metformin held Plan Hopeful discharge to [facility] within the next 2 to 3 days. Admission and Anticipated Discharge Date Admission Date: January 18, 2025 Subjective The patient is disappointed that he is not being discharged today. I spoke to his by phone and she is in agreement that a car trip to [place] is probably not going to happen. He appears to have a combination of diastolic CHF, staph bacteremia, and acute on chronic respiratory failure which all led to his cardiac arrest. He has significant peripheral edema and chest x-ray is consistent with CHF. BNP was done earlier this admission and was markedly elevated. Repeat level is pending. Cardiac echo reveals normal ejection fraction with elevated right ventricular systolic pressures. He is now on parenteral Lasix 40 mg IV twice daily. Toscano catheter has been ordered to monitor accurate urine output. Will repeat chest x-ray again tomorrow, February 05. He remains on intravenous Unasyn. Blood culture was positive on January 20 and negative on January 21. He had 11 beats of wide-complex tachycardia today that hopefully is SVT with aberrancy. He has no reason to have ventricular tachycardia with a normal ejection fraction. Continue telemetry. Pulmonary medicine consultation appreciated. Review of Systems 2 Review of Systems: Constitutionalno fever or chills ENTno blurred vision, no double vision, no epistaxis, no sore throat Respiratoryno cough, no wheezing. He does have dyspnea on exertion and orthopnea Cardiacno palpitations, no chest pain, no syncope Jewel nausea, vomiting, diarrhea, melena, hematochezia GUno urinary retention, no urinary incontinence, no dysuria, no hematuria Musculoskeletalno joint pain, no muscle tenderness Skinno bruising, no rashes, no pruritus Neurono isolated weakness, no paresthesia, no weakness Psychno depression, no anxiety Physical Exam 2 Physical Exam: General-alert and oriented x3, no fever, no chills HEENT-head atraumatic and normocephalic, pupils equal and reactive to light, extraocular muscles intact Neck-no lymphadenopathy or thyromegaly, trachea midline Chest-diminished breath sounds bilaterally with bibasilar inspiratory rales. No wheezing. No rhonchi Cardiac-mildly tachycardic rate and regular rhythm. Normal S1 and S2 Abdomen-normal bowel sounds, no hepatosplenomegaly [id number]+ pitting edema bilateral lower extremities below the knees. Neuro-cranial nerves II through XII intact, motor and sensory function within normal limits, strength symmetrical with generalized weakness, no focal deficits Psych-normal affect, normal mood Results & Data Results & Data Vital Signs (Past 12 Hours) Vital Signs Temp Pulse Pulse Resp BP Pulse Ox O2 Del Method 02/04/25 14:43 86 02/04/25 12:05 93 High Flow Nasal Cannula 02/04/25 11:43 36.6 C 85 16 163/75 H 95 High Flow Nasal Cannula 02/04/25 08:10 94 High Flow Nasal Cannula 02/04/25 08:03 BiPAP, High Flow Nasal Cannula 02/04/25 07:25 83 22 177/86 H 95 BiPAP 02/04/25 07:00 82 02/04/25 07:00 80 22 92 02/04/25 07:00 80 22 94 BiPAP 02/04/25 05:12 92 BiPAP 02/04/25 04:43 93 BiPAP 02/04/25 04:41 BiPAP 02/04/25 04:28 36.8 C 79 20 176/76 H 96 Room Air O2 Flow Rate FiO2 02/04/25 14:43 02/04/25 12:05 8 02/04/25 11:43 9 02/04/25 08:10 8 02/04/25 08:03 02/04/25 07:25 02/04/25 07:00 02/04/25 07:00 45 02/04/25 07:00 45 02/04/25 05:12 45 02/04/25 04:43 02/04/25 04:41 35 02/04/25 04:28 Laboratory Results 02/04/25 09:09 02/04/25 09:09 PG Care Time/CCT Total # of Minutes Spent Total Time Spent with Patient: Total time spent is greater than 50% in coordination of care (as documented) at patient's floor/unit and/or counseling patient: Coding Level of Care Code 28810 SUB INP/OBS CARE 3/50MIN Diagnoses Respiratory failure J96.90 Gram-positive bacteremia R78.81 Cardiac arrest I46.9 Heart failure with reduced ejection fraction I50.20 Diabetes mellitus E11.9
[2025-02-04] MEDS: FUROSEMIDE 40 MG/4 ML VIAL IV SCH (17:57)
[2025-02-05 06:48] LABS: Blood Urea Nitrogen 11 mg/dl (6-23); Calcium 8.5 mg/dl (8.6-10.3); Carbon Dioxide > 45 mmol/L (21-32); Chloride 94 mmol/L (98-107); Creatinine Clr Calc Pharmacy 137.3 ml/min; Glucose 90 mg/dl (70-99(Fasting)); Potassium 3.7 mmol/L (3.5-5.1); Sodium 145 mmol/L (136-145)
--- NOTE | 2025-02-05 07:47 | XRay Report ---
EXAM: XR chest 1V portable CLINICAL HISTORY: CHF, COPD, respiratory failure TECHNIQUE: Radiograph of chest was acquired. COMPARISON: 11:47:18 [employer] FINDINGS: Interval unchanged moderate right pleural effusion and opacification in right lower zone. Unchanged mild haziness in left lower zone and bilateral parahilar congestion. Apparent cardiomegaly Rest of the cardiomediastinal silhouette is within normal limits. No acute osseous abnormality. IMPRESSION: Interval unchanged moderate right pleural effusion and opacification in right lower zone. Unchanged mild haziness in left lower zone and bilateral parahilar congestion. Apparent cardiomegaly Electronically signed by Daren Wheatley 02-05-2025 07:46 AM
[2025-02-05 09:59] LABS: iSTAT Art Bld Gas Base Excess 24.0 meg/L (-9-1.8)
--- NOTE | 2025-02-05 09:59 | Pulmonology Progress Note ---
Date of Service February 05, 2025 Assessment & Plan (1) CORY (obstructive sleep apnea): (2) Cor pulmonale, acute: (3) Pulmonary hypertension: (4) COPD with emphysema: (5) Acute on chronic respiratory failure with hypoxia and hypercapnia: (6) Acute encephalopathy: (7) CO2 narcosis: Plan Patient with metabolic encephalopathy secondary to CO2 narcosis and metabolic alkalosis. Likely component of delirium from acute inpatient stay as well. BiPAP settings adjusted with an increase in IPAP and a repeat ABG to be done in about 1 hour. If pH rises to 7.4 above will start acetazolamide with Lasix. Otherwise, continue LABA/ICS nebulizer treatments. Suspect an element of anoxic brain injury as well given recent cardiac arrest leading to patient's encephalopathy. Recommend neurology consultation. Avoid sedating medications. Care coordinated with bedside RN and RT. Pulmonary will continue to follow. Thank you for the consult. Admission and Anticipated Discharge Date Admission Date: January 18, 2025 Subjective Patient seen and examined this morning. Remains on BiPAP. Intermittently confused. Denies any shortness of breath or chest pain. ABG obtained this morning reveals respiratory acidosis with a pCO2 in the 80s. Patient also with a compensatory metabolic alkalosis. Review of Systems Review of Systems: All systems reviewed & are unremarkable except as noted in HPI & below Physical Exam Physical Exam: Constitutional: No acute distress HEENT: EOMI, PERRLA Respiratory system: Decreased air entry bilaterally, no wheeze, no rhonchi, positive crackles bilateral lower lobe CVS: S1-S2 positive, no murmurs or gallops Abdomen: Soft, nontender, nondistended, positive bowel sounds x4, obese Extremities: +2 pulses bilaterally radialis/ dorsalis pedis, no cyanosis, +2 pitting edema bilateral lower extremity Neuro: Awake and alert oriented to self Psych: Flat mood and affect G/U: No [place] Skin: no rashes, warm and dry Lymphatic: no cervical or axillary lymphadenopathy Results & Data Results & Data Vital Signs (Past 12 Hours) Vital Signs Temp Pulse Pulse Pulse Resp BP Pulse Ox 02/05/25 08:32 36.2 C L 86 20 171/74 H 92 02/05/25 06:17 74 22 94 02/05/25 06:16 79 22 94 02/05/25 05:35 74 79 18 167/85 H 94 02/05/25 03:21 77 22 91 02/04/25 23:59 36.8 C 71 20 133/64 93 02/04/25 22:30 71 22 94 O2 Del Method O2 Flow Rate FiO2 02/05/25 08:32 High Flow Nasal Cannula 8 02/05/25 06:17 50 02/05/25 06:16 BiPAP 50 02/05/25 05:35 BiPAP 50 02/05/25 03:21 45 02/04/25 23:59 BiPAP 02/04/25 22:30 45 PG Care Time/CCT Total # of Minutes Spent Total Time Spent with Patient: Total time spent is greater than 50% in coordination of care (as documented) at patient's floor/unit and/or counseling patient: Coding Level of Care Code 40967 SUB INP/OBS CARE 350MIN Diagnoses CORY (obstructive sleep apnea) G47.33 Cor pulmonale, acute I26.09 Pulmonary hypertension I27.20 COPD with emphysema J43.9 Acute on chronic respiratory failure with hypoxia and hypercapnia J96.21; J96.22 Acute encephalopathy G93.40 CO2 narcosis R06.89
[2025-02-05] MEDS: HEPARIN SOD 5,000 UNIT/0.5 ML VIAL SQ SCH (10:53)
[2025-02-05] MEDS: POTASSIUM CHLORIDE CRTAB 20 MEQ TABCR PO SCH (10:53)
[2025-02-05 11:22] LABS: iSTAT Art Bld Gas Base Excess 29.0 meg/L (-9-1.8)
[2025-02-05 14:20] LABS: iSTAT Art Bld Gas Base Excess 26.0 meg/L (-9-1.8)
--- NOTE | 2025-02-05 16:23 | Hospitalist Progress Note ---
Date of Service February 05, 2025 Assessment & Plan (1) Respiratory failure: Plan: Acute on chronic respiratory failure with hypoxia and hypercapnia from a combination of CHF and exacerbation of COPD. Appreciate pulmonary medicine consultation and recommendations. Continue to treat CHF and COPD. Avoid high oxygen saturations. Diamox started. Serial labs. Thoracentesis ordered and pending (2) Gram-positive bacteremia: Plan: Staph isolated in blood cultures January 20. Negative blood cultures January 21. He has completed his course of intravenous Unasyn. Previously on vancomycin this admission. (3) Cardiac arrest: Plan: suspected respiratory arrest versus loss of consciousness due to hypoxia causing apparent cardiac arrest.. Reportedly ROSC obtained in the field after 6 minutes of CPR. EF is normal, no wall motion abnormalities on echo. No definite evidence of acute coronary syndrome. Troponin with minimal elevation on admission. Admitting EKG was sinus with first-degree AV block/right bundle branch block. No territorial ST changes seen. Appreciate cardiology consultation and recommendations. Chest CTA without thoracic aortic dissection or pulmonary emboli. Noted to have severe emphysema + several nondisplaced acute rib fractures in the setting of CPR. TTE: LVEF 60-65%. RV pressure overload. No noted AV/MV abnormality (4) Heart failure with reduced ejection fraction: Plan: He appears to have acute on chronic diastolic CHF. Most recent echo reveals normal ejection fraction now. BNP level is markedly elevated as expected. Continue parenteral Lasix. Toscano catheter placed for accurate output measurements. (5) Diabetes mellitus: Plan: ADA diet. Sliding scale coverage as needed. Farxiga, metformin held Plan Hopeful discharge to [facility] within the next 2 to 3 days. Admission and Anticipated Discharge Date Admission Date: January 18, 2025 Subjective Awake and resting comfortably. Brisk diuretic response to parenteral Lasix therapy. He has severe underlying COPD with both hypercapnia and hypoxia which are aggravated by his CHF. Will continue parenteral Lasix therapy and add Diamox. Hopefully as the CHF improves, his respiratory status will improve and the CO2 levels will decrease. Pulmonary medicine entry noted. Thoracentesis has been requested and pending. Potassium is down to 3.7 with Lasix diuresis and oral potassium replacement has been started to prevent hypokalemia. Review of Systems 2 Review of Systems: Constitutionalno fever or chills ENTno blurred vision, no double vision, no epistaxis, no sore throat Respiratoryno cough, no wheezing. He does have dyspnea on exertion and orthopnea Cardiacno palpitations, no chest pain, no syncope Jewel nausea, vomiting, diarrhea, melena, hematochezia GUno urinary retention, no urinary incontinence, no dysuria, no hematuria Musculoskeletalno joint pain, no muscle tenderness Skinno bruising, no rashes, no pruritus Neurono isolated weakness, no paresthesia, no weakness Psychno depression, no anxiety Physical Exam 2 Physical Exam: General-alert and oriented x3, no fever, no chills HEENT-head atraumatic and normocephalic, pupils equal and reactive to light, extraocular muscles intact Neck-no lymphadenopathy or thyromegaly, trachea midline Chest-diminished breath sounds bilaterally with bibasilar inspiratory rales. No wheezing. No rhonchi Cardiac-mildly tachycardic rate and regular rhythm. Normal S1 and S2 Abdomen-normal bowel sounds, no hepatosplenomegaly Extremities-1+ pitting edema bilateral lower extremities below the knees. Neuro-cranial nerves II through XII intact, motor and sensory function within normal limits, strength symmetrical with generalized weakness, no focal deficits Psych-normal affect, normal mood Results & Data Results & Data Vital Signs (Past 12 Hours) Vital Signs Temp Pulse Pulse Pulse Resp BP Pulse Ox 02/05/25 15:53 36.6 C 87 14 150/78 H 93 02/05/25 15:06 99 H 17 93 02/05/25 14:32 74 02/05/25 11:53 02/05/25 11:28 36.6 C 79 20 155/75 H 95 02/05/25 08:32 36.2 C L 86 20 171/74 H 92 02/05/25 07:00 74 02/05/25 06:17 74 22 94 02/05/25 06:16 79 22 94 02/05/25 05:35 74 79 18 167/85 H 94 O2 Del Method O2 Flow Rate FiO2 02/05/25 15:53 Nasal Cannula 5 02/05/25 15:06 50 02/05/25 14:32 02/05/25 11:53 BiPAP, High Flow Nasal Cannula 8 02/05/25 11:28 BiPAP 02/05/25 08:32 High Flow Nasal Cannula 8 02/05/25 07:00 02/05/25 06:17 50 02/05/25 06:16 BiPAP 50 02/05/25 05:35 BiPAP 50 Laboratory Results 02/04/25 09:09 02/05/25 05:56 PG Care Time/CCT Total # of Minutes Spent Total Time Spent with Patient: Total time spent is greater than 50% in coordination of care (as documented) at patient's floor/unit and/or counseling patient: Coding Level of Care Code 28811 SUB INP/OBS CARE 3/50MIN Diagnoses Respiratory failure J96.90 Gram-positive bacteremia R78.81 Cardiac arrest I46.9 Heart failure with reduced ejection fraction I50.20 Diabetes mellitus E11.9
[2025-02-05] MEDS: FUROSEMIDE 40 MG/4 ML VIAL IV ONE (17:43)
[2025-02-05] MEDS: acetaZOLAMIDE 250 MG TAB PO SCH (20:44)
[2025-02-06 03:33] LABS: HCO3 ABG 53 mmol/L (19-24); Oxygen Saturation ABG 100.0 % (90-95); PCO2 ABG 69 mmHg (35-46); PO2 ABG 147 mmHg (80-95)
[2025-02-06 03:46] LABS: Allen Test Pos (Pos)
[2025-02-06 07:00] LABS: INR 1.0 (0.9-1.1); Prothrombin Time 11.0 Seconds (9.0-12.0)
[2025-02-06 07:01] LABS: Blood Urea Nitrogen 13 mg/dl (6-23); Calcium 8.2 mg/dl (8.6-10.3); Carbon Dioxide > 45 mmol/L (21-32); Chloride 94 mmol/L (98-107); Creatinine Clr Calc Pharmacy 142.7 ml/min; Glucose 89 mg/dl (70-99(Fasting)); Potassium 3.4 mmol/L (3.5-5.1); Sodium 144 mmol/L (136-145)
--- NOTE | 2025-02-06 07:27 | XRay Report ---
EXAM: XR chest 1V portable CLINICAL HISTORY: CHF, resp failure. TECHNIQUE: An X-ray image of the chest is obtained in AP projection. COMPARISON: Prior CR 02/05/2025. FINDINGS: Pulmonary Parenchyma: Still seen bilateral lower zone ill-defined air space opacities Moderate right-sided pleural effusion seen with underlying opacification. Interval worsening. Minimal blunting of the left costophrenic angle likely due to minimal pleural effusion. Heart and Mediastinum: Mild cardiomegaly with prominent perihilar vascular shadows No mediastinal widening or masses. No hilar or mediastinal lymphadenopathy. Bony Thorax: Bony thorax appears intact without fractures or deformities. Soft Tissues: Soft tissues overlying the chest wall are unremarkable. IMPRESSION: 1. Moderate right-sided pleural effusion seen with underlying opacification. Interval worsening. 2. Still seen bilateral lower zone ill-defined air space opacities (Unchanged). 3. Minimal blunting of the left costophrenic angle is likely due to minimal pleural effusion. 4. Mild cardiomegaly with prominent perihilar vascular shadows. (Unchanged). Electronically signed by Eugenio Martinez 02-06-2025 07:27 AM
--- NOTE | 2025-02-06 09:27 | Pulmonology Progress Note ---
Date of Service February 06, 2025 Assessment & Plan (1) CORY (obstructive sleep apnea): (2) Cor pulmonale, acute: (3) Pulmonary hypertension: (4) COPD with emphysema: (5) Acute on chronic respiratory failure with hypoxia and hypercapnia: (6) Acute encephalopathy: (7) CO2 narcosis: Plan Patient with metabolic encephalopathy secondary to CO2 narcosis and metabolic alkalosis. Likely component of delirium from acute inpatient stay as well. ABG improved today. Will start acetazolamide 250 mg twice daily. Would recommend holding on diuresis today and reevaluating serum CO2 levels tomorrow. Continue BiPAP nightly and as needed. Otherwise, continue LABA/ICS nebulizer treatments. Suspect an element of anoxic brain injury as well given recent cardiac arrest leading to patient's encephalopathy. Recommend neurology consultation. Avoid sedating medications. Care coordinated with bedside RN and RT. Pulmonary will continue to follow. Thank you for the consult. Admission and Anticipated Discharge Date Admission Date: January 18, 2025 Subjective Patient much more awake and alert today. Saturating well on nasal cannula. Remains hypertensive. Review of Systems Review of Systems: All systems reviewed & are unremarkable except as noted in HPI & below Physical Exam Physical Exam: Constitutional: No acute distress HEENT: EOMI, PERRLA Respiratory system: Decreased air entry bilaterally, no wheeze, no rhonchi, positive crackles bilateral lower lobe CVS: S1-S2 positive, no murmurs or gallops Abdomen: Soft, nontender, nondistended, positive bowel sounds x4, obese Extremities: +2 pulses bilaterally radialis/ dorsalis pedis, no cyanosis, +2 pitting edema bilateral lower extremity Neuro: Awake and alert oriented to self Psych: Flat mood and affect G/U: No [place] Skin: no rashes, warm and dry Lymphatic: no cervical or axillary lymphadenopathy Results & Data Results & Data Vital Signs (Past 12 Hours) Vital Signs Temp Pulse Pulse Resp BP Pulse Ox O2 Del Method 02/06/25 08:11 36.7 C 89 9 L 171/82 H 90 Nasal Cannula 02/06/25 07:11 79 14 90 BiPAP 02/06/25 03:41 77 14 96 02/06/25 03:28 36.8 C 77 20 153/96 H 96 BiPAP 02/06/25 00:44 36.7 C 75 18 140/74 96 BiPAP 02/05/25 22:17 77 17 94 02/05/25 21:56 BiPAP, High Flow Nasal Cannula 02/05/25 21:44 74 O2 Flow Rate FiO2 02/06/25 08:11 6 02/06/25 07:11 40 02/06/25 03:41 50 02/06/25 03:28 50 02/06/25 00:44 02/05/25 22:17 50 02/05/25 21:56 8 50 02/05/25 21:44 PG Care Time/CCT Total # of Minutes Spent Total Time Spent with Patient: Total time spent is greater than 50% in coordination of care (as documented) at patient's floor/unit and/or counseling patient: Coding Level of Care Code 32559 SUB INP/OBS CARE 235MIN Diagnoses CORY (obstructive sleep apnea) G47.33 Cor pulmonale, acute I26.09 Pulmonary hypertension I27.20 COPD with emphysema J43.9 Acute on chronic respiratory failure with hypoxia and hypercapnia J96.21; J96.22 Acute encephalopathy G93.40 CO2 narcosis R06.89
[2025-02-06] MEDS: FUROSEMIDE 40 MG/4 ML VIAL IV ONE (10:14)
[2025-02-06] MEDS: POTASSIUM CHLORIDE CRTAB 20 MEQ TABCR PO SCH (13:21)
--- NOTE | 2025-02-06 15:10 | XRay Report ---
SINGLE VIEW CHEST CLINICAL HISTORY: Status post right-sided thoracentesis FINDINGS: 2 AP, portable, upright chest radiographs are compared to study dated 02/06/2025. Correlation is made with chest CT dated 01/18/2025. The examination is degraded by portable technique and apical lordotic positioning. The heart is enlarged noting atherosclerotic calcification of the thoracic aort a. There is prominence of the pulmonary vasculature. Emphysema and chronic interstitial thickening is similar to previous. There are trace pleural effusions. Dependent airspace opacities in both lung ba ses, left greater than right. No pneumothorax is seen. The skeletal structures are osteopenic. The drea ny thorax is grossly intact. IMPRESSION: 1. Cardiomegaly and emphysema with prominence of the pulmonary vasculature. Correlate clinically for evidence of mild fluid overload/congestive change. 2. No pneumothorax is identified post procedure. 3. There are trace pleural effusions. the right pleural effusion has significantly decreased in size from previous. 4. Dependent airspace opacities are seen at both lung bases, left side greater than right. This could represent atelectasis versus pneumonia. Clinical correlation will be required and radiographic follo w-up to resolution is recommended. ACT 112: Negative or not required by law. Electronically signed by: Nithin Cavazos M.D. 02/06/2025 3:07 PM
--- NOTE | 2025-02-06 15:20 | Ultrasound Report ---
ULTRASOUND-GUIDED RIGHT THORACENTESIS CLINICAL HISTORY: Large right pleural effusion COMPARISON STUDY: Chest x-ray 02/06/2025 PROCEDURE: Procedure and risks were explained. Informed consent was obtained. A final timeout was com pleted. The right posterior thorax was prepped and draped in sterile fashion. 1% lidocaine was utiliz ed for skin anesthesia. Utilizing ultrasound guidance, a 5 Armenian safety centesis catheter was advanced into the right pleura l effusion. Ultrasound images were obtained. A total of 1200 mL of yellow pleural fluid was removed a nd sent to the lab. The catheter was removed and Band-Aid applied. The patient tolerated the procedur e well. A chest x-ray will be obtained post procedure. Vital signs will be monitored on the floor. IMPRESSION: Ultrasound-guided right thoracentesis as above. Performed, dictated, and signed by Kenji Jones PA-C; to be co-signed by Dr. Nithin Cavazos. Electronically signed by: Nithin Cavazos M.D. 02/06/2025 3:53 PM
--- NOTE | 2025-02-06 15:56 | Hospitalist Progress Note ---
Date of Service February 06, 2025 Assessment & Plan (1) Respiratory failure: Plan: Acute on chronic respiratory failure with hypoxia and hypercapnia from a combination of CHF and exacerbation of COPD has improved with diuresis. Appreciate pulmonary medicine consultation and recommendations. Continue to treat CHF and COPD. Avoid high oxygen saturations. Diamox has been started. Serial labs. Right thoracentesis ordered and pending (2) Acute on chronic diastolic CHF (congestive heart failure): Plan: The patient received quite a bit of IV fluids during resuscitation efforts and for treatment of other medical problems on admission. He is now experiencing a brisk diuresis with IV Lasix. Monitor urine output. Serial chest x-ray. Moderately large right pleural effusion will undergo thoracentesis by IR later today, February 06 (3) Gram-positive bacteremia: Plan: Staph isolated in blood cultures January 20. Negative blood cultures January 21. He has completed his course of intravenous Unasyn. Previously on vancomycin this admission. (4) Cardiac arrest: Plan: suspected respiratory arrest versus loss of consciousness due to hypoxia causing apparent cardiac arrest.. Reportedly ROSC obtained in the field after 6 minutes of CPR. EF is normal, no wall motion abnormalities on echo. No definite evidence of acute coronary syndrome. Troponin with minimal elevation on admission. Admitting EKG was sinus with first-degree AV block/right bundle branch block. No territorial ST changes seen. Appreciate cardiology consultation and recommendations. Chest CTA without thoracic aortic dissection or pulmonary emboli. Noted to have severe emphysema + several nondisplaced acute rib fractures in the setting of CPR. TTE: LVEF 60-65%. RV pressure overload. No noted AV/MV abnormality (5) Heart failure with reduced ejection fraction: Plan: He appears to have had acute on chronic diastolic CHF. Most recent echo reveals normal ejection fraction now. BNP level is markedly elevated as expected. Excellent diuretic response with parenteral Lasix. Toscano catheter placed for accurate output measurements. (6) Diabetes mellitus: Plan: ADA diet. Sliding scale coverage as needed. Farxiga, metformin held (7) Hypokalemia: Plan: Caused by Lasix diuresis. Oral replacement ordered. Serial labs Plan Hopeful discharge to [facility] within the next day or 2. The patient is willing to go. I spoke to his , Kassi, today by phone. Admission and Anticipated Discharge Date Admission Date: January 18, 2025 Subjective Sitting up in a chair and feeling much better with diuresis. CHF appears to be resolving. He has a large right pleural effusion and pulmonary medicine has asked IR to perform a right thoracentesis which is pending. pCO2 has improved markedly. He is requiring 6 L of oxygen per nasal cannula at this time and hopefully this will continue to improve. Oral potassium replacement uptitrated today, February 06. I spoke to his , Kassi, by phone. He agrees to go to [facility] at discharge as a stepping stone to eventually getting home to [place]. Continue parenteral Lasix diuresis for now. Review of Systems 2 Review of Systems: Constitutionalno fever or chills ENTno blurred vision, no double vision, no epistaxis, no sore throat Respiratoryno cough, no wheezing. Dyspnea on exertion has improved and orthopnea has resolved. Cardiacno palpitations, no chest pain, no syncope Jewel nausea, vomiting, diarrhea, melena, hematochezia GUno urinary retention, no urinary incontinence, no dysuria, no hematuria Musculoskeletalno joint pain, no muscle tenderness Skinno bruising, no rashes, no pruritus Neurono isolated weakness, no paresthesia, no weakness Psychno depression, no anxiety Physical Exam 2 Physical Exam: General-alert and oriented x3, no fever, no chills HEENT-head atraumatic and normocephalic, pupils equal and reactive to light, extraocular muscles intact Neck-no lymphadenopathy or thyromegaly, trachea midline Chest-diminished breath sounds at the right base. No wheezing. No rhonchi Cardiac-regular rate and rhythm. Normal S1 and S2 Abdomen-normal bowel sounds, no hepatosplenomegaly Extremities-1+ pitting edema bilateral lower extremities below the knees. Neuro-cranial nerves II through XII intact, motor and sensory function within normal limits, strength symmetrical with mild generalized weakness, no focal deficits Psych-normal affect, normal mood Results & Data Results & Data Vital Signs (Past 12 Hours) Vital Signs Temp Pulse Pulse Resp BP Pulse Ox O2 Del Method 02/06/25 15:21 36.8 C 86 25 H 137/72 97 High Flow Nasal Cannula 02/06/25 14:20 79 02/06/25 13:58 Nasal Cannula 02/06/25 11:24 36.7 C 85 24 137/73 91 High Flow Nasal Cannula 02/06/25 10:57 79 02/06/25 08:11 36.7 C 89 9 L 171/82 H 90 Nasal Cannula 02/06/25 07:11 79 14 90 BiPAP O2 Flow Rate FiO2 02/06/25 15:21 6 02/06/25 14:20 02/06/25 13:58 4 02/06/25 11:24 02/06/25 10:57 02/06/25 08:11 6 02/06/25 07:11 40 Laboratory Results 02/04/25 09:09 02/06/25 05:55 PG Care Time/CCT Total # of Minutes Spent Total Time Spent with Patient: Total time spent is greater than 50% in coordination of care (as documented) at patient's floor/unit and/or counseling patient: Coding Level of Care Code 19607 SUB INP/OBS CARE 3/50MIN Diagnoses Respiratory failure J96.90 Acute on chronic diastolic CHF (congestive heart failure) I50.33 Gram-positive bacteremia R78.81 Cardiac arrest I46.9 Heart failure with reduced ejection fraction I50.20 Diabetes mellitus E11.9 Hypokalemia E87.6
[2025-02-06 16:53] LABS: Appearance Pleural Fluid Slightly Hazy; Color Pleural Fluid Straw; RBC Pleural Fluid Auto < 2000 /uL; Source Pleural Fluid Right Lung; WBC Pleural Fluid Auto 359 /uL
[2025-02-06] MEDS: ACETAMINOPHEN 325 MG TAB PO PRN (23:59)
[2025-02-07 06:04] LABS: Base Excess VBG 16.6 mEq/L; HCO3 VBG 45 mmol/L; Oxygen Saturation VBG 87.2 %; PCO2 VBG 71 mmHg (38-50); PO2 VBG 53 mmHg; pH VBG 7.41 (7.36-7.41)
[2025-02-07 06:32] LABS: Anion Gap 5.0 (3-11); Blood Urea Nitrogen 14.0 mg/dl (6-23); Calcium 8.3 mg/dl (8.6-10.3); Carbon Dioxide 40.0 mmol/L (21-32); Chloride 98.0 mmol/L (98-107); Creatinine Clr Calc Pharmacy 140.3 ml/min; Glucose 95.0 mg/dl (70-99(Fasting)); Potassium 3.7 mmol/L (3.5-5.1); Sodium 143.0 mmol/L (136-145)
[2025-02-07 06:51] LABS: Lymphocytes, Fluid 45 %; Mono,Macrophage,Mesothelial 55 %; Neutrophils, Fluid 0 %
--- NOTE | 2025-02-07 09:12 | Pulmonology Progress Note ---
Date of Service February 07, 2025 Assessment & Plan (1) CORY (obstructive sleep apnea): (2) Cor pulmonale, acute: (3) Pulmonary hypertension: (4) COPD with emphysema: (5) Acute on chronic respiratory failure with hypoxia and hypercapnia: (6) Acute encephalopathy: (7) CO2 narcosis: Plan Encephalopathy appears to be clearing with improvement of blood gases. VBG this morning with a PCO2 of 71 and pH of 7.41. Serum bicarbonate is trending down as well with acetazolamide. Recommend an additional 1 to 2 days of acetazolamide with trending of BMPs. Otherwise, continue LABA/ICS nebulizer treatments. Patient's status post thoracentesis 02/06/2025 with 1.2 L out. Pleural fluid appears to be a transudate consistent with CHF. Cytology pending. Continue BiPAP at night and as needed. He will likely need supplemental oxygen upon discharge for use during the day and night. Patient stable for discharge from pulmonary perspective to inpatient rehab or SNF. Pulmonary to sign off at this time. Please call with questions. Admission and Anticipated Discharge Date Admission Date: January 18, 2025 Subjective Patient feeling much better today. He does not however admit that he feels that his skin is tingling which is a new symptom for him. He feels that his breathing is improved. Denies any chest pain and his shortness of breath is minimal currently. Review of Systems Review of Systems: All systems reviewed & are unremarkable except as noted in HPI & below Physical Exam Physical Exam: Constitutional: No acute distress HEENT: EOMI, PERRLA Respiratory system: Improved aeration in the right lower lobe with diminished crackles. CVS: S1-S2 positive, no murmurs or gallops Abdomen: Soft, nontender, nondistended, positive bowel sounds x4, obese Extremities: +2 pulses bilaterally radialis/ dorsalis pedis, no cyanosis, +2 pitting edema bilateral lower extremity Neuro: Awake and alert oriented to self Psych: Flat mood and affect G/U: No [place] Skin: no rashes, warm and dry Lymphatic: no cervical or axillary lymphadenopathy Results & Data Results & Data Vital Signs (Past 12 Hours) Vital Signs Temp Pulse Pulse Resp BP Pulse Ox O2 Del Method 02/07/25 08:24 80 10 L 95 Nasal Cannula 02/07/25 07:40 36.6 C 77 18 164/81 H 94 Nasal Cannula 02/07/25 03:30 36.7 C 71 18 155/71 H 100 BiPAP 02/07/25 02:13 76 18 98 02/07/25 00:00 BiPAP 02/06/25 23:17 74 02/06/25 23:08 36.8 C 81 20 130/69 98 BiPAP O2 Flow Rate FiO2 02/07/25 08:24 4 02/07/25 07:40 4 02/07/25 03:30 02/07/25 02:13 40 02/07/25 00:00 40 02/06/25 23:17 02/06/25 23:08 PG Care Time/CCT Total # of Minutes Spent Total Time Spent with Patient: Total time spent is greater than 50% in coordination of care (as documented) at patient's floor/unit and/or counseling patient: Coding Level of Care Code 30690 SUB INP/OBS CARE 2/35MIN Diagnoses CORY (obstructive sleep apnea) G47.33 Cor pulmonale, acute I26.09 Pulmonary hypertension I27.20 COPD with emphysema J43.9 Acute on chronic respiratory failure with hypoxia and hypercapnia J96.21; J96.22 Acute encephalopathy G93.40 CO2 narcosis R06.89
[2025-02-07] MEDS: FUROSEMIDE 40 MG TAB PO SCH (11:29)
--- NOTE | 2025-02-07 13:22 | Hospitalist Progress Note ---
Date of Service February 07, 2025 Assessment & Plan (1) Respiratory failure: Plan: Acute on chronic respiratory failure with hypoxia and hypercapnia from a combination of CHF and exacerbation of COPD has improved with diuresis. Appreciate pulmonary medicine consultation and recommendations. Continue to treat CHF and COPD. Avoid high oxygen saturations. Continue Diamox. Right thoracentesis completed yesterday, February 06, with over 1 L of fluid aspirated. He continues to use BiPAP due to his acute on chronic respiratory failure with hypoxia and hypercarbia. CORY is not the primary cause of the hypercapnia. He has been on BiPAP within 24 hours of discharge. Serial labs. (2) Acute on chronic diastolic CHF (congestive heart failure): Plan: The patient received quite a bit of IV fluids during resuscitation efforts and for treatment of other medical problems on admission. He has experienced a brisk diuresis with IV Lasix. IV Lasix switched to oral dosing. Monitor urine output. Serial chest x-ray. Moderately large right pleural effusion has resolved after thoracentesis completed yesterday, February 06. Over 1 L of fluid was aspirated. (3) Gram-positive bacteremia: Plan: Staph isolated in blood cultures January 20. Negative blood cultures January 21. He has completed his course of intravenous Unasyn. Previously on vancomycin this admission. (4) Cardiac arrest: Plan: suspected respiratory arrest versus loss of consciousness due to hypoxia causing apparent cardiac arrest.. Reportedly ROSC obtained in the field after 6 minutes of CPR. EF is normal, no wall motion abnormalities on echo. No definite evidence of acute coronary syndrome. Troponin with minimal elevation on admission. Admitting EKG was sinus with first-degree AV block/right bundle branch block. No territorial ST changes seen. Appreciate cardiology consultation and recommendations. Chest CTA without thoracic aortic dissection or pulmonary emboli. Noted to have severe emphysema + several nondisplaced acute rib fractures in the setting of CPR. TTE: LVEF 60-65%. RV pressure overload. No noted AV/MV abnormality (5) Heart failure with reduced ejection fraction: Plan: He appears to have had acute on chronic diastolic CHF. Most recent echo reveals normal ejection fraction now. BNP level is markedly elevated as expected. Excellent diuretic response with parenteral Lasix. IV Lasix switched to oral dosing today, February 07. Toscano catheter will be removed today, February 07. (6) Diabetes mellitus: Plan: ADA diet. Sliding scale coverage as needed. Farxiga, metformin on hold. These will be restarted at discharge (7) Hypokalemia: Plan: Caused by Lasix diuresis. Corrected with oral replacement that has been down titrated today, February 07. Serial labs Plan [facility], February 08. Admission and Anticipated Discharge Date Admission Date: January 18, 2025 Subjective He appears to be at his respiratory baseline. He underwent right thoracentesis yesterday, February 06 with over 1 L of fluid removed. Chest x-ray done today, February 07, looks much better. Potassium corrected to 3.7. Oral potassium frequency tapered down. Toscano catheter will be removed today. Lasix switched to oral dosing. Continue Diamox for now. [facility], February 08 Review of Systems 2 Review of Systems: Constitutionalno fever or chills ENTno blurred vision, no double vision, no epistaxis, no sore throat Respiratoryno cough, no wheezing. Dyspnea on exertion has improved and orthopnea has resolved. Cardiacno palpitations, no chest pain, no syncope Jewel nausea, vomiting, diarrhea, melena, hematochezia GUno urinary retention, no urinary incontinence, no dysuria, no hematuria Musculoskeletalno joint pain, no muscle tenderness Skinno bruising, no rashes, no pruritus Neurono isolated weakness, no paresthesia, no weakness Psychno depression, no anxiety Physical Exam 2 Physical Exam: General-alert and oriented x3, no fever, no chills HEENT-head atraumatic and normocephalic, pupils equal and reactive to light, extraocular muscles intact Neck-no lymphadenopathy or thyromegaly, trachea midline Chest-diminished breath sounds and dullness at the right base have resolved after thoracentesis. No wheezing. No inspiratory rales Cardiac-regular rate and rhythm. Normal S1 and S2 Abdomen-normal bowel sounds, no hepatosplenomegaly Extremities-1+ pitting edema bilateral lower extremities below the knees continues to resolve. Neuro-cranial nerves II through XII intact, motor and sensory function within normal limits, strength symmetrical with mild generalized weakness, no focal deficits Psych-normal affect, normal mood Results & Data Results & Data Vital Signs (Past 12 Hours) Vital Signs Temp Pulse Pulse Resp BP Pulse Ox O2 Del Method 02/07/25 11:43 36.6 C 87 24 138/62 92 Nasal Cannula 07/10/25 08:24 80 10 L 95 Nasal Cannula 02/07/25 08:00 BiPAP 02/07/25 07:40 36.6 C 77 18 164/81 H 94 Nasal Cannula 02/07/25 03:30 36.7 C 71 18 155/71 H 100 BiPAP 02/07/25 02:13 76 18 98 O2 Flow Rate FiO2 02/07/25 11:43 02/07/25 08:24 4 02/07/25 08:00 40 02/07/25 07:40 4 02/07/25 03:30 02/07/25 02:13 40 Laboratory Results 02/04/25 09:09 02/07/25 05:47 PG Care Time/CCT Total # of Minutes Spent Total Time Spent with Patient: Total time spent is greater than 50% in coordination of care (as documented) at patient's floor/unit and/or counseling patient: Coding Level of Care Code 70168 SUB INP/OBS CARE 3/50MIN Diagnoses Respiratory failure J96.90 Acute on chronic diastolic CHF (congestive heart failure) I50.33 Gram-positive bacteremia R78.81 Cardiac arrest I46.9 Heart failure with reduced ejection fraction I50.20 Diabetes mellitus E11.9 Hypokalemia E87.6
[2025-02-07] MEDS: acetaZOLAMIDE 250 MG TAB PO SCH (20:46)
[2025-02-08 08:54] LABS: Base Excess VBG 13.4 mEq/L; HCO3 VBG 42 mmol/L; Oxygen Saturation VBG < 60.0 %; PCO2 VBG 75 mmHg (38-50); PO2 VBG 24 mmHg; pH VBG 7.36 (7.36-7.41)
[2025-02-08 09:17] LABS: Anion Gap 4.0 (3-11); Blood Urea Nitrogen 17.0 mg/dl (6-23); Calcium 8.9 mg/dl (8.6-10.3); Carbon Dioxide 39.0 mmol/L (21-32); Chloride 98.0 mmol/L (98-107); Creatinine Clr Calc Pharmacy 132.5 ml/min; Glucose 151.0 mg/dl (70-99(Fasting)); Potassium 3.9 mmol/L (3.5-5.1); Sodium 141.0 mmol/L (136-145)
[2025-02-08] MEDS: POTASSIUM CHLORIDE CRTAB 20 MEQ TABCR PO SCH (09:25)
--- NOTE | 2025-02-08 10:57 | Hospitalist Progress Note ---
Date of Service February 08, 2025 Assessment & Plan (1) Respiratory failure: Plan: Acute on chronic respiratory failure with hypoxia and hypercapnia on admission from a combination of CHF and exacerbation of COPD has improved with diuresis. Appreciate pulmonary medicine consultation and recommendations. Continue to treat CHF and COPD. Avoid high oxygen saturations. Continue Diamox while hospitalized. Will discontinue at discharge. Right thoracentesis completed on February 06 with over 1 L of fluid aspirated. He continues to use BiPAP at bedtime due to his acute on chronic respiratory failure with hypoxia and hypercarbia. CORY is not the primary cause of the hypercapnia. He has been on BiPAP within 24 hours of discharge. Serial labs. (2) Acute on chronic diastolic CHF (congestive heart failure): Plan: The patient received quite a bit of IV fluids during resuscitation efforts and for treatment of other medical problems on admission. He experienced a brisk diuresis with IV Lasix. IV Lasix has been switched to oral dosing. Monitor urine output. Serial chest x-ray. Moderately large right pleural effusion has resolved after thoracentesis completed on February 06. Over 1 L of fluid was aspirated. (3) Gram-positive bacteremia: Plan: Staph isolated in blood cultures January 20. Negative blood cultures January 21. He has completed his course of intravenous Unasyn. Previously on vancomycin this admission. (4) Cardiac arrest: Plan: suspected respiratory arrest versus loss of consciousness due to hypoxia causing apparent cardiac arrest.. Reportedly ROSC obtained in the field after 6 minutes of CPR. EF is normal, no wall motion abnormalities on echo. No definite evidence of acute coronary syndrome. Troponin with minimal elevation on admission. Admitting EKG was sinus with first-degree AV block/right bundle branch block. No territorial ST changes seen. Appreciate cardiology consultation and recommendations. Chest CTA without thoracic aortic dissection or pulmonary emboli. Noted to have severe emphysema + several nondisplaced acute rib fractures in the setting of CPR. TTE: LVEF 60-65%. RV pressure overload. No noted AV/MV abnormality (5) Heart failure with reduced ejection fraction: Plan: He appears to have had acute on chronic diastolic CHF. Most recent echo reveals normal ejection fraction now. BNP level was markedly elevated as expected. Excellent diuretic response with parenteral Lasix. IV Lasix switched to oral dosing on February 07. Toscano catheter was removed on February 07. (6) Diabetes mellitus: Plan: ADA diet. Sliding scale coverage as needed. Farxiga, metformin on hold. These will be restarted at discharge (7) Hypokalemia: Plan: Caused by Lasix diuresis. Corrected with oral replacement that has been down titrated on February 07. Serial labs Plan Discharge to [facility] when insurance authorization received. Admission and Anticipated Discharge Date Admission Date: January 18, 2025 Subjective Alert and oriented. He continues to feel well. No significant change from yesterday. Awaiting insurance authorization for discharge to [facility]. Review of Systems 2 Review of Systems: Constitutionalno fever or chills ENTno blurred vision, no double vision, no epistaxis, no sore throat Respiratoryno cough, no wheezing. Dyspnea on exertion has improved and orthopnea has resolved. Cardiacno palpitations, no chest pain, no syncope Jewel nausea, vomiting, diarrhea, melena, hematochezia GUno urinary retention, no urinary incontinence, no dysuria, no hematuria Musculoskeletalno joint pain, no muscle tenderness Skinno bruising, no rashes, no pruritus Neurono isolated weakness, no paresthesia, no weakness Psychno depression, no anxiety Physical Exam 2 Physical Exam: General-alert and oriented x3, no fever, no chills HEENT-head atraumatic and normocephalic, pupils equal and reactive to light, extraocular muscles intact Neck-no lymphadenopathy or thyromegaly, trachea midline Chest-diminished breath sounds and dullness at the right base have resolved after thoracentesis. No wheezing. No inspiratory rales Cardiac-regular rate and rhythm. Normal S1 and S2 Abdomen-normal bowel sounds, no hepatosplenomegaly Extremities-1+ pitting edema bilateral lower extremities below the knees continues to resolve. Neuro-cranial nerves II through XII intact, motor and sensory function within normal limits, strength symmetrical with mild generalized weakness, no focal deficits Psych-normal affect, normal mood Results & Data Results & Data Vital Signs (Past 12 Hours) Vital Signs Temp Pulse Pulse Pulse Resp BP Pulse Ox 02/08/25 10:47 36.7 C 81 16 109/58 L 93 02/08/25 08:00 02/08/25 07:55 36.4 C L 79 18 143/59 H 93 02/08/25 07:02 84 18 90 02/08/25 02:56 36.8 C 72 14 138/62 91 02/08/25 02:29 71 14 94 02/08/25 00:00 84 02/07/25 22:56 36.8 C 78 18 137/72 95 O2 Del Method O2 Flow Rate FiO2 02/08/25 10:47 Room Air 02/08/25 08:00 Nasal Cannula 3 02/08/25 07:55 Room Air 02/08/25 07:02 Nasal Cannula 3 02/08/25 02:56 BiPAP 02/08/25 02:29 35 02/08/25 00:00 02/07/25 22:56 Nasal Cannula Laboratory Results 02/04/25 09:09 02/08/25 08:36 PG Care Time/CCT Total # of Minutes Spent Total Time Spent with Patient: Total time spent is greater than 50% in coordination of care (as documented) at patient's floor/unit and/or counseling patient: Coding Level of Care Code 54590 SUB INP/OBS CARE 2/35MIN Diagnoses Respiratory failure J96.90 Acute on chronic diastolic CHF (congestive heart failure) I50.33 Gram-positive bacteremia R78.81 Cardiac arrest I46.9 Heart failure with reduced ejection fraction I50.20 Diabetes mellitus E11.9 Hypokalemia E87.6
--- NOTE | 2025-02-08 12:09 | Discharge Summary ---
Discharge Summary Date of Service February 08, 2025 Principal Dx & Hospital Course #1 = Principal Diagnosis (1) Respiratory failure: Acute on chronic respiratory failure with hypoxia and hypercapnia on admission from a combination of CHF and exacerbation of COPD has improved with diuresis. Appreciate pulmonary medicine consultation and recommendations. Continue to treat CHF and COPD. Avoid high oxygen saturations. Continue Diamox while hospitalized. Will discontinue at discharge. Right thoracentesis completed on February 06 with over 1 L of fluid aspirated. He continues to use BiPAP at bedtime due to his acute on chronic respiratory failure with hypoxia and hypercarbia. CORY is not the primary cause of the hypercapnia. He has been on BiPAP within 24 hours of discharge. Serial labs. (2) Acute on chronic diastolic CHF (congestive heart failure): The patient received quite a bit of IV fluids during resuscitation efforts and for treatment of other medical problems on admission. He experienced a brisk diuresis with IV Lasix. IV Lasix has been switched to oral dosing. Monitor urine output. Serial chest x-ray. Moderately large right pleural effusion has resolved after thoracentesis completed on February 06. Over 1 L of fluid was aspirated. (3) Gram-positive bacteremia: Staph isolated in blood cultures January 20. Negative blood cultures January 21. He has completed his course of intravenous Unasyn. Previously on vancomycin this admission. (4) Cardiac arrest: suspected respiratory arrest versus loss of consciousness due to hypoxia causing apparent cardiac arrest.. Reportedly ROSC obtained in the field after 6 minutes of CPR. EF is normal, no wall motion abnormalities on echo. No definite evidence of acute coronary syndrome. Troponin with minimal elevation on admission. Admitting EKG was sinus with first-degree AV block/right bundle branch block. No territorial ST changes seen. Appreciate cardiology consultation and recommendations. Chest CTA without thoracic aortic dissection or pulmonary emboli. Noted to have severe emphysema + several nondisplaced acute rib fractures in the setting of CPR. TTE: LVEF 60-65%. RV pressure overload. No noted AV/MV abnormality (5) Heart failure with reduced ejection fraction: He appears to have had acute on chronic diastolic CHF. Most recent echo reveals normal ejection fraction now. BNP level was markedly elevated as expected. Excellent diuretic response with parenteral Lasix. IV Lasix switched to oral dosing on February 07. Toscano catheter was removed on February 07. (6) Diabetes mellitus: ADA diet. Sliding scale coverage as needed. Farxiga, metformin on hold. These will be restarted at discharge (7) Hypokalemia: Caused by Lasix diuresis. Corrected with oral replacement that has been down titrated on February 07. Serial labs Plan Discharge to [facility] today, February 08 Admission HPI Per Admitting Provider Mr. Kay is a 69-year-old male with PMH of T2DM, CHF, HLD, HTN, tobacco use, and severe emphysema (on supplemental oxygen as needed). He presented on 01/18 after sustaining a cardiac arrest in the field. Patient was at a gas station, and suddenly collapsed. He received approximately 6 minutes of CPR in the field, and ROSC was obtained. En route, he received 2 amps of bicarb, and was started on a norepinephrine drip. Per ED, his [id number] potassium on arrival was 9. Patient was traveling home to [place], where he lives. Unable to obtain history from patient at this time. ED course: Unable to obtain ROS at this time. Spoke to patient's (Kassi) who provide history. She reports that she, her , and their children were on a cruise [place] the [place]. They were driving back home to [place], and they stopped at a gas station, where the patient went into cardiac arrest. reports that, over the past week on the cruise, patient had worsening CONN. He could "barely take 10 steps" without needing to catch his breath. While he was mainly with exertion, he also had episodes of SOB at rest. Patient has supplemental oxygen at baseline (as needed) for his history of emphysema and smoking. He is a former tobacco cigarette smoker, but quit 15 years ago. He does have a CPAP at home, but is not compliant. denies any prior history of AL, cardiac arrhythmias, atrial fibrillation, or CVAs. No recent trauma to the chest. No history of kidney issues or high potassium. 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 Records requested from Dr. Carolina Wills. Discharge Exam General-alert and oriented x3, no fever, no chills HEENT-head atraumatic and normocephalic, pupils equal and reactive to light, extraocular muscles intact Neck-no lymphadenopathy or thyromegaly, trachea midline Chest-diminished breath sounds and dullness at the right base have resolved after thoracentesis. No wheezing. No inspiratory rales Cardiac-regular rate and rhythm. Normal S1 and S2 Abdomen-normal bowel sounds, no hepatosplenomegaly Extremities-1+ pitting edema bilateral lower extremities below the knees continues to resolve. Neuro-cranial nerves II through XII intact, motor and sensory function within normal limits, strength symmetrical with mild generalized weakness, no focal deficits Psych-normal affect, normal mood Discharge Plan Discharge Items Patient Disposition: Transfer Inpatient Rehab Fac Reason For Visit: CARDIAC ARREST Discharge Diagnosis: Cardiac arrest, acute on chronic hypoxic/hypercapnic respiratory failure, acute on chronic diastolic CHF, staph bacteremia Condition on Discharge: Good Activity: Resume your previous activity Non-emergency contact: Primary Care Provider Call non-emergency contact if: you have any medication questions and your symptoms worsen Follow-up/Referrals: Zhang Magaña DO [Primary Care Provider] - Diet: Regular and Heart Healthy Addtl Attending Provider Instructions: See primary care provider as soon as possible after discharge from [facility] Pending Studies at Discharge: No Stand-Alone Forms: My [facility] Skilled Items Patient informed of condition?: Yes DNR: No Discharge Level of Care: Acute rehab Communicable Disease: No Discharge Prognosis: Stable Lines: None Urinary Catheter: No Medications and DC Order Prescriptions: New furosemide [Lasix] 40 mg tablet 40 mg PO DAILY Qty: 1 0RF Psyllium Husk [Metamucil] 4 g PO QAM Qty: 0 0RF potassium chloride 20 mEq Tablet,Er Particles/Crystals 20 meq PO DAILY Qty: 0 0RF budesonide 0.5 mg/2 mL Suspension For Nebulization 0.5 mg NEB BIDR Qty: 0 0RF carvedilol 6.25 mg Tablet 6.25 mg PO BIDM Qty: 0 0RF Continued atorvastatin 40 mg tablet 40 mg PO DAILY metformin 500 mg tablet 500 mg PO UD Rx Instructions: 1000mg po qam and 500mg po pm montelukast 10 mg tablet 10 mg PO DAILY tadalafil 20 mg tablet 20 mg PO DIRECTED PRN (Reason: Other) dapagliflozin propanediol [Farxiga] 10 mg tablet 10 mg PO DAILY Entresto 49-51 mg tablet 1 tab PO BID Trelegy Ellipta 200-62.5-25 mcg blister with device 1 inh INHALATION DIRECTED Discontinued carvedilol 25 mg tablet 25 mg PO BID Discharge Orders: Discharge Order- CHF (Routine); Ordered 02/08/25 Ordered By: Roly Luevano/Other Patient Handouts: High Blood Sugar (Hyperglycemia), Managing Type 2 Diabetes, How to Check Your Blood Sugar Admission Data Admit Date/Time: 01/18/25 15:41 Attending Provider: Roly Paez Admit Provider: Sean Monsivais Primary Care Provider: Zhang Magaña Other Providers: Sean Monsivais; Sanjuana Smith; Houston Rowell; [facility]; [facility] Stay Data Consultations 01/18/25 15:36 ED Decision to Admit Stat 01/18/25 17:24 Consult Sediment Remediation Consultant Routine 01/19/25 07:10 Consult Cardiology Routine 01/22/25 07:28 Consult Infectious Diseases Routine 02/01/25 09:29 Consult Pulmonology Routine Diagnostic Imagining Performed 01/18/25 14:03 CTA chest dissec wo/w con [CT angio chest dissec wo/w con] Stat 01/18/25 14:15 CT head/brain wo con Stat 01/18/25 16:54 US venous doppler LE BI Routine 01/21/25 13:26 US point of care ultrasound Stat 01/21/25 14:13 US venous doppler UE LT Urgent 02/06/25 00:00 IR thoracentesis wo tube US Routine Pending Results Patient Have Any Pending Studies at Discharge: No Discharge Instructions Given to Patient (Per Discharging Provider) See primary care provider as soon as possible after discharge from [facility] Total Time Total Time Spent Total Time Spent (In Minutes): 50 minutes Coding Level of Care Code 55231 INP/OBS DISCH >30 MIN Diagnoses Respiratory failure J96.90 Acute on chronic diastolic CHF (congestive heart failure) I50.33 Gram-positive bacteremia R78.81 Cardiac arrest I46.9 Heart failure with reduced ejection fraction I50.20 Diabetes mellitus E11.9 Hypokalemia E87.6
== END 2025-02-08 13:37 | DRG 208 ==
LOC: EDBD → ED 13:48 → 1E 15:41 → SUATTDRO 15:41 → 1E 16:08 → 4W 01-22 21:50 → 2E 01-23 19:50